=== PATIENT | female | born 1950 | race Caucasian/White ===

== ENCOUNTER → 2018-07-26 09:58 | Outpatient (CLI) | payer MEDICARE, SELFPAY ==
--- NOTE | 2018-07-26 10:03 | MM_ITS ---
MM Dig screening mamm BI w/CAD CAD Screening COMPARISON: Digital mammograms with CAD 08/02/2015 and 05/11/2017 INDICATION: There is a history of breast cancer in patient's mother diagnosed after menopause TECHNIQUE: Standard CC and MLO images were obtained. R2 CAD reviewed. FINDINGS: Scattered fibroglandular densities are seen in both breast primarily upper outer quadrants. There is a small asymmetric density upper outer quadrant left breast which was noted on the prior study 05/11/2017 and has shown slight interval increase in size and is highlighted by CAD. Recommend the patient return for spot compression views and ultrasound for better evaluation. There is a mole marker right breast. A couple of benign-appearing calcifications in each breast. There are no suspicious microcalcifications. IMPRESSION: Fibrofatty parenchyma with interval change in asymmetric density left breast BI-RADS Category: 0 Need Additional Imaging Evaluation RECOMMENDED FOLLOW-UP: IMM - IMMEDIATE FOLLOW-UP RECOMMENDED (A letter has been sent to the patient regarding results of the study.)
== END ==
PROVIDERS: PCP Nurse Practitioner Family; Visit Provider Nurse Practitioner Family
DX: Z12.31 Encounter for screening mammogram for malignant neoplasm of breast (principal)
CPT/HCPCS: 77067

== ENCOUNTER → 2018-08-19 13:01 | Outpatient (CLI) | payer MEDICARE, SELFPAY ==
--- NOTE | 2018-08-19 | US_ITS ---
US breast LT complete INDICATION: Follow-up abnormal mammogram, left breast nodule ORDERING PHYSICIAN: Pamela Soares PATIENT AGE: 68 years COMPARISON: 07/26/2018, 08/02/2015 TECHNIQUE: Problem-solving views of the left breast along left breast ultrasound FINDINGS: Left mammogram: There is a persistent 10 mm nodule noted in the lateral aspect of left breast at the 3:00 region. The margins are somewhat ill-defined. Left breast ultrasound: There is a 12 x 8 mm hypoechoic nodule at 3:00 region of the left breast. This appears solid and is located to the chest wall and is fairly well circumscribed with some enhanced through transmission of sound. This may represent a fibroadenoma however, biopsy is recommended. This does fall in the suspicious category IMPRESSION: Solid suspicious left breast nodule at 3:00 corresponding to the mammographic abnormality. Recommend mammotome biopsy with ultrasound guidance BI-RADS Category: 4 Suspicious Abnormality-Biopsy Considered RECOMMENDED FOLLOW-UP: BIO - BIOPSY RECOMMENDED (A letter has been sent to the patient regarding results of the study.)
--- NOTE | 2018-08-19 13:04 | MM_ITS ---
MM Dig mamm DX unilat LT CAD Left breast ultrasound complete with axilla INDICATION: Follow-up abnormal mammogram, left breast nodule ORDERING PHYSICIAN: Pamela Soares PATIENT AGE: 68 years COMPARISON: 07/26/2018, 08/02/2015 TECHNIQUE: Problem-solving views of the left breast along left breast ultrasound FINDINGS: Left mammogram: There is a persistent 10 mm nodule noted in the lateral aspect of left breast at the 3:00 region. The margins are somewhat ill-defined. Left breast ultrasound: There is a 12 x 8 mm hypoechoic nodule at 3:00 region of the left breast. This appears solid and is located to the chest wall and is fairly well circumscribed with some enhanced through transmission of sound. This may represent a fibroadenoma however, biopsy is recommended. This does fall in the suspicious category IMPRESSION: Solid suspicious left breast nodule at 3:00 corresponding to the mammographic abnormality. Recommend mammotome biopsy with ultrasound guidance BI-RADS Category: 4 Suspicious Abnormality-Biopsy Considered RECOMMENDED FOLLOW-UP: BIO - BIOPSY RECOMMENDED (A letter has been sent to the patient regarding results of the study.)
== END ==
PROVIDERS: PCP Nurse Practitioner Family; Visit Provider Nurse Practitioner Family
DX: R92.8 Other abnormal and inconclusive findings on diagnostic imaging of breast (principal)
CPT/HCPCS: 76641; 77065

== ENCOUNTER → 2018-09-07 09:45 | Outpatient (CLI) | payer MEDICARE, SELFPAY ==
--- NOTE | 2018-09-07 | MM_ITS ---
US mammotome bx LT, US breast LT complete, MM clip placement LT INDICATION: Suspicious left breast nodule noted mammogram and ultrasound ORDERING PHYSICIAN: Miguel Schultz MD PATIENT AGE: 68 years COMPARISON: 08/19/2018 Prebiopsy ultrasound: Ultrasound performed of left breast once again demonstrates the solid appearing at the 3:00 region. Biopsy planning performed and appropriate site marked on the patient's breast. TECHNIQUE: Following obtaining informed consent and following timeout, using aseptic conditions and local anesthesia with 1% buffered lidocaine in the breast lesion with lidocaine mixed with epinephrine anesthesia was obtained and skin neck performed. A gauge mammotome needle was then inserted and multiple mammotomy cores biopsies are obtained. Following this, a nonferrous MicroMark clip was placed. The patient tolerated the procedure well without evidence of immediate complication. Pathology: Papilloma with adenosis and sclerosis. Microcalcifications are present. Postbiopsy mammogram: Postbiopsy changes in the clip is noted in the outer aspect of the left breast at the 3:00 region. Previously noted nodule is not readily apparent or much smaller . IMPRESSION: Successful ultrasound guided mammotome biopsy of the left breast showing a papilloma. Excisional biopsy is recommended.
== END ==
PROVIDERS: PCP Nurse Practitioner Family; Visit Provider Internal Medicine Adolescent Medicine
DX: R92.8 Other abnormal and inconclusive findings on diagnostic imaging of breast (principal)
CPT/HCPCS: 19083; 76641; 76942; 77065; 88305; C2618

== ENCOUNTER → 2018-09-24 11:52 | Outpatient (CLI) | payer MEDICARE, SELFPAY ==
[2018-09-24 12:23] LABS: Basophils % 0.7 % (0.1-2.0); Eosinophils # 0.3 K/mm3 (0.0-0.4); Hematocrit 37.6 % (37.0-47.0); Hemoglobin 12.3 g/dL (12.2-16.2); Lymphocytes # 1.8 K/mm3 (0.7-4.5); Lymphocytes % 35.5 % (10-50); Mean Corpuscular HGB Conc 32.8 g/dL (31.8-35.4); Mean Corpuscular Hemoglobin 30.8 pg (27.0-31.2); Mean Platelet Volume 7.2 fl (7.4-10.4); Monocytes # 0.3 K/mm3 (0.1-1.0); Monocytes % 6.5 % (1.7-9.3); Neutrophils # 2.6 K/mm3 (1.8-7.8); Neutrophils % 52.4 % (37.0-80.0); Platelet Count 321 K/mm3 (142-424); Red Cell Distribution Width 13.4 % (11.5-17.5)
[2018-09-24 13:30] LABS: Anion Gap 8.5 mEq/L (5-15); Blood Urea Nitrogen 12 mg/dL (7-18); Calcium 9.6 mg/dL (8.5-10.1); Carbon Dioxide 36 mmol/L (21.0-32.0); Chloride 101 mmol/L (98-107); Creatinine,Serum 0.91 mg/dL (0.55-1.02); Estimated Glomerular Filt Rate 61 ml/min (>60); GFR (African American) 74 ML/MIN (>60); Potassium 4.5 mmoL/L (3.5-5.1); Sodium 141 mmol/L (136-145)
[2018-09-24 13:44] LABS: Glucose 48 mg/dL (74-106)
== END ==
PROVIDERS: Visit Provider Surgery
DX: N63.20 Unspecified lump in the left breast, unspecified quadrant; C50.912 Malignant neoplasm of unspecified site of left female breast
CPT/HCPCS: 36415; 80048; 85025

== ENCOUNTER → 2018-12-20 09:20 | Outpatient (CLI) | payer MEDICARE, SELFPAY ==
--- NOTE | 2018-12-20 09:22 | US_ITS ---
US breast LT complete INDICATION: Pain and swelling left breast following surgery ORDERING PHYSICIAN: Tommy Ayers MD PATIENT AGE: 68 years COMPARISON: None TECHNIQUE: Left breast ultrasound with axilla FINDINGS: There is a complex fluid collection in the 2:00 region of the left breast measuring 4 x 1.2 x 1.6 cm with a tail extending toward the axilla consistent with postoperative seroma. No other significant anomalies are evident. IMPRESSION: The findings are consistent with a postoperative seroma in the left breast at 2:00. Ultrasound-guided aspiration suggested BI-RADS Category: 2 Benign Finding(s) RECOMMENDED FOLLOW-UP: IMM - IMMEDIATE FOLLOW-UP RECOMMENDED (A letter has been sent to the patient regarding results of the study.)
--- NOTE | 2018-12-20 10:20 | US_ITS ---
US FNA Breast HISTORY: Postoperative seroma left breast ORDERING PHYSICIAN: Tommy Ayers MD PATIENT AGE: 68 years COMPARISON: 12/20/2018 TECHNIQUE: Patient has a postoperative fluid collection in the upper outer aspect of the left breast desiring drainage. Following obtaining informed consent and timeout, under aseptic conditions and local anesthesia with 1% buffered lidocaine, an 18-gauge needle was inserted into the collection and approximately 20 mL's of bloody fluid was aspirated. This was sent to the lab for analysis for culture and sensitivity. The patient tolerated the procedure well without evidence of immediate complication. The collection was no longer visible at the end of the procedure. IMPRESSION: Successful sonographic guided aspiration of the left breast without complications
== END ==
PROVIDERS: PCP Nurse Practitioner Family; Visit Provider Surgery
DX: N64.4 Mastodynia; N64.89 Other specified disorders of breast; N63.20 Unspecified lump in the left breast, unspecified quadrant
CPT/HCPCS: 10005; 76641; 76942; 87070; 87205

== ENCOUNTER → 2019-04-21 13:09 | Outpatient (CLI) | payer MEDICARE, SELFPAY | PROVIDERS: PCP Internal Medicine Adolescent Medicine; Visit Provider Nurse Practitioner Family | DX: R42 Dizziness and giddiness (principal); R55 Syncope and collapse | CPT/HCPCS: 93270 ==

== ENCOUNTER → 2019-07-28 10:57 | Outpatient (CLI) | payer MEDICARE, SELFPAY ==
--- NOTE | 2019-07-28 11:10 | MM_ITS ---
PROCEDURE: MM DIG MAMM BI DX W/CAD CLINICAL INDICATION: RT BREAST NODULE Follow-up breast biopsy COMPARISON: 07/26/2018, 05/11/2017, 08/02/2015 TECHNIQUE: Standard images performed FINDINGS: Average fibroglandular tissue. Right breast: There is an asymmetric area of increased density in the inferior aspect of the right breast slightly more prominent compared to the previous study. There is some asymmetric density in the lateral aspect of the right breast near the areolar region. Spot compression views and ultrasound suggested as well as a straight mL view. Left breast: Postsurgical changes with a clip now present in the upper aspect of the left breast. Previously noted nodular opacity in the superior left breast is no longer apparent. There is a faint nodular density in the superior left breast which could represent some postsurgical changes. Calcifications are present in the central aspect of the left breast which are not significantly changed. Increased density is present in the lateral aspect of the left breast probably due to some scarring/postsurgical change. There is an asymmetric density in the medial aspect of the left breast. Spot views suggested. If this persists then ultrasound will be needed. IMPRESSION: Asymmetric densities in the inferior right breast and inferior left breast for which spot compression views and ultrasound is suggested.. Postsurgical changes of the left breast with some nodularity in the upper outer aspect. BI-RAD Category: 0 Need Additional Imaging Evaluation FOLLOW-UP: IMM Immediate Follow-up Recommended (A letter has been sent to the patient regarding results of the study.) Dictated by: Eliezer Tamayo MD 08/06/2019 09:16 Electronically signed by Eliezer Tamayo MD in [place] 08/06/2019 09:16
== END ==
PROVIDERS: PCP Internal Medicine Adolescent Medicine; Visit Provider Nurse Practitioner Family
DX: R92.8 Other abnormal and inconclusive findings on diagnostic imaging of breast (principal)
CPT/HCPCS: 77066

== ENCOUNTER 2019-09-16 10:42 | Inpatient (IN) ==
--- NOTE | 2019-09-16 10:57 | Emergency Department Note ---
ED Disposition Clinical Impression: Severe sepsis Community acquired pneumonia Qualifiers: Laterality: right Lung location: unspecified part of lung Qualified Code(s): J18.9 - Pneumonia, unspecified organism Respiratory failure Qualifiers: Chronicity: acute on chronic Respiratory failure complication: hypoxia and hypercapnia Qualified Code(s): J96.21 - Acute and chronic respiratory failure with hypoxia Disposition: Admitted As Inpatient Condition on Discharge: Serious Referrals: Pamela Soares APRN [Primary Care Provider] - - Critical Care Critical Care Time: Yes Attestation: On 09/16/19, the high probability of a clinically significant, sudden or life threatening deterioration of the following system(s) required my full and direct attention, intervention and personal management. The time I documented below is in addition to time spent performing reported procedures but includes the following listed in this critical care notation. Vital system(s) involved:: Respiratory Failure My critical care processes included: Assessment & monitoring of V/S, Initial and Re-exams, Data Review/Interpretation, Coordinating Care, Medication Orders and management, Documentation Medical Decision Making - Andrei Inquiry Pt receiving controlled substance: No Vital Signs: 09/16/19 10:43 09/16/19 11:25 09/16/19 11:30 Temperature 101.5 F H Temperature Source Rectal Pulse Rate [Left Radial] 112 H 109 H Respiratory Rate 42 H 42 H Blood Pressure [Right Arm] 137/88 123/58 L Blood Pressure Mean [Right Arm] 104 79 Blood Pressure Position [Right Arm] Sitting 02 Sat by Pulse Oximetry 85 L 92 L 92 L Oxygen Delivery Method Nasal Cannula Nasal Cannula Oxygen Flow Rate (LPM) 2 4 - Lab Data Lab Results 09/16/19 10:48: Specimen Source R radial, O2 % 4lpm, ABG pH 7.34 L, ABG pCO2 60.9 H, ABG pO2 63.6 L, ABG HCO3 31.8 H, ABG Total CO2 33.7 H, ABG O2 Saturation 91, ABG Base Excess 6.0 H, Eliezer Test Acceptable 09/16/19 10:50: Total Creatine Kinase 183, CK-MB (CK-2) 0.9, CK-MB (CK-2) Rel Index 0.5, Troponin I 0.08 H 09/16/19 10:50: WBC 18.0 H, RBC 3.34 L, Hgb 10.1 L, Hct 31.7 L, MCV 95.1, MCH 30.4, MCHC 32.0, RDW 13.2, Plt Count 309, MPV 8.4, Neut % (Auto) 93.6 H, Lymph % (Auto) 3.3 L, [place] % (Auto) 2.7, Eos % (Auto) 0.1, Baso % (Auto) 0.2, Neut # (Auto) 16.8 H, Lymph # (Auto) 0.6 L, [place] # (Auto) 0.5, Eos # (Auto) 0.0, Baso # (Auto) 0.0, Total Counted 100, Neutrophils % (Manual) 85 H, Band Neutrophils % 4.0, Lymphocytes % (Manual) 8 L, Monocytes % (Manual) 1 L, Metamyelocytes % 1.0, Myelocytes % 1, Platelet Estimate Normal, RBC Morphology Normal 09/16/19 10:50: Sodium 135 L, Potassium 4.3, Chloride 95 L, Carbon Dioxide 33 H, Anion Gap 11.3, BUN 27 H, Creatinine 2.02 H, Estimated Creat Clear 37, Estimated GFR 24 L, Est GFR ( Amer) 29 L, Glucose 179 H, Calcium 9.1, Total Bilirubin 0.4, AST 26, ALT 29, Alkaline Phosphatase 119 H, Total Protein 7.3, Albumin 2.3 L, Globulin 5.0 H, Albumin/Globulin Ratio 0.5 L, TSH 1.63, Free T4 1.21 09/16/19 10:50: Lactate 1.8 09/16/19 10:50: B-Natriuretic Peptide 934 H 09/16/19 10:55: Urine Color Dk yellow, Urine Appearance Clear, Urine pH 5.5, Ur Specific Dairy >= 1.030, Urine Protein 1+, Urine Glucose (UA) Negative, Urine Ketones Trace, Urine Blood Negative, Urine Nitrate Negative, Urine Bilirubin Negative, Urine Urobilinogen 0.2, Ur Leukocyte Esterase Negative, Urine RBC None, Urine WBC None, Ur Squamous Epith Cells 10-20, Amorphous Sediment 2+, Urine Bacteria None, Coarse Granular Casts Occasional 09/16/19 10:55: Influenza Type A Ag Negative, Influenza Type B Ag Negative Result diagrams: 09/16/19 10:50 09/16/19 10:50 Orders (Tests/Meds): ED MEDICATIONS Generic Name Dose Route Start Last Admin Trade Name Freq PRN Reason Stop Dose Admin Aspirin 650 mg 09/16/19 11:29 09/16/19 11:29 Aspirin 325mg Tablet PO 10/16/19 11:19 650 mg Q4HP PRN Administration Fever > 100.4 Levofloxacin/Dextrose 750 mg in 150 mls @ 100 mls/hr 09/16/19 11:45 09/16/19 11:52 Levofloxacin 750mg/150ml Premix IV 09/30/19 11:44 100 mls/hr Q24H WINNIE Administration Protocol Sodium Chloride 1,000 mls @ 150 mls/hr 09/16/19 11:45 09/16/19 11:52 Sod Chlor 0.9% 1000ml Bag IV 10/16/19 11:44 150 mls/hr .[id number] WINNIE Administration Discontinued Medications Generic Name Dose Route Start Last Admin Trade Name Freq PRN Reason Stop Dose Admin Aspirin 325 mg 09/16/19 11:20 Aspirin 325mg Tablet PO 10/16/19 11:19 Q4HP PRN Fever > 100.4 Methylprednisolone Sodium Succinate 125 mg 09/16/19 11:21 09/16/19 11:27 Solu-Medrol 125mg/2ml Vial IV 09/16/19 11:22 125 mg ONCE ONE Administration ORDERS Category Date Time Status Blood Culture Stat Micro 09/16/19 10:48 Received - Radiology Data #1 Image(s): Chest Image Reviewed: Yes I have reviewed radiologist's interpretation PROCEDURE: XR CHEST AP CLINICAL HISTORY: soa Shortness of air, fall with injury and pain, trauma protocol COMPARISON: CXR CHEST(2 VIEWS-NOT PORTABLE) from 01/30/2016 CXR1 CHEST-PORTABLE from 02/15/2016 CTAC CTA-CHEST from 02/15/2016 CXR2V XR chest 2V from 10/13/2018 FINDINGS: The cardiomediastinal silhouette and pulmonary vascularity are within normal limits. Consolidation is present in the right upper and right lower lobe consistent with right-sided pneumonia. Underlying pulmonary nodule could easily be obscured. Small right effusion also suspected. No acute bony abnormalities. IMPRESSION: Right upper and right lower lobe pneumonia. Recommend following till clear Dictated by: Eliezer Tamayo MD 09/16/2019 11:31 Electronically signed by Eliezer Tamayo MD in [place] 09/16/2019 11:31 PROCEDURE: XR PELVIS 1-2V CLINICAL INDICATION: fall Posttraumatic pain trauma protocol COMPARISON: No exams were available for comparison TECHNIQUE: XR Pelvis AP View FINDINGS: No fracture or dislocation is evident. Minimal osteoarthritic changes of the hips No lytic or blastic change. IMPRESSION: No acute findings. Dictated by: Eliezer Tamayo MD 09/16/2019 11:30 Electronically signed by Eliezer Tamayo MD in [place] 09/16/2019 11:30 - ECG Data Tracing #1 EKG interpreted by Parker Cortes MD: Rhythm: sinus tachycardia Rate: Center: normal Ectopy: none Conduction: normal ST Segment Changes: none T Wave Changes: none Q Waves: none No evidence of acute ischemia or injury Low voltage QRS - Physician Consults Physician Consulted: Dr. Schultz Time: 12:03 Reason -: Admission Comment/Response: Agrees to admit the patient to the hospital. We discussed the patient's clinical information, including history, exam, laboratory and radiology results and ED course. Per hospital procedure, I will write temporary bridge inpatient orders on the patient. Specific orders requested by the admitting physician: Continue current treatment General Adult HPI - General Chief complaint: Weakness Stated complaint: weakness Time Seen by Provider: 09/16/19 10:45 - History of Present Illness HPI narrative: Brought in by ambulance from home. Patient says that she was up last night at 3 AM straightening out the bed when she collapsed and fell on the floor. Denies injury or pain. Apparently could not get up and laid in the floor all night. Says that she has been under a lot of stress recently. Says that she is felt weak for a couple of months. She also says that she is short of breath, but states this is also chronic. She she also says she has chronic abdominal pain and UTIs. She denies any recent acute illness. Denies recent cough or fever, vomiting, or diarrhea. He says that she is diagnosed with COPD, on oxygen at home. Former smoker. States she has been compliant with her medications. She lists allergies to albuterol, ipratropium, leave albuterol, but received a DuoNeb treatment during transport without incident. - Related Data Home Medications Medication Instructions Recorded Confirmed alprazolam 1 mg tablet 1 mg PO TID PRN 12/24/17 06/20/19 amitriptyline 100 mg tablet 100 mg PO QHS 12/24/17 06/20/19 ammonium lactate 12 % lotion 1 applic TOPICAL BID PRN 12/24/17 06/20/19 ascorbic acid (vitamin C) 500 mg 100 mg PO DAILY 12/24/17 06/20/19 capsule bisoprolol 10 1 tab PO ONCE 12/24/17 06/20/19 mg-hydrochlorothiazide 6.25 mg tablet cyclobenzaprine 10 mg tablet 10 mg PO TID PRN 12/24/17 06/20/19 doxazosin 4 mg tablet 4 mg PO ONCE 12/24/17 06/20/19 furosemide 20 mg tablet 20 mg PO ONCE 12/24/17 06/20/19 ibuprofen 600 mg tablet 600 mg PO TID PRN 12/24/17 06/20/19 insulin glargine U-300 conc 300 66 unit SUB-Q QHS 12/24/17 06/20/19 unit/mL (3 mL) subcutaneous pen levothyroxine 88 mcg tablet 88 mcg PO ONCE 12/24/17 06/20/19 losartan 100 mg tablet 100 mg PO ONCE 12/24/17 06/20/19 metformin 1,000 mg tablet 1,000 mg PO BID 12/24/17 06/20/19 nystatin 500,000 unit tablet 500,000 unit PO DAILY PRN 12/24/17 06/20/19 simvastatin 40 mg tablet 40 mg PO QPM 12/24/17 06/20/19 triamcinolone acetonide 0.1 % 1 applic DENTAL QHS PRN 12/24/17 06/20/19 dental paste umeclidinium 62.5 mcg/actuation 1 inh INHALATION Q24H 12/24/17 06/20/19 blister powder for inhalation Venlafaxine HCl [Effexor 37.5mg 37.5 mg PO DAILY 10/12/18 06/20/19 tablet] Previous Rx's Medication Instructions Recorded fluconazole 100 mg tablet 100 mg PO DAILY #14 tab 03/07/19 Allergies Allergy/AdvReac Type Severity Reaction Status Date / Time cephalexin [CEPHALEXIN] Allergy Severe S-DIFF. Verified 06/20/19 10:45 BREATHING, SWELLING Sulfa (Sulfonamide Allergy Severe S-DIFF. Verified 06/20/19 10:45 Antibiotics) BREATHING, [SULFA (SULFONAMIDE SWELLING ANTIBIOTICS)] acetaminophen [From PERCOCET] Allergy Intermediate I-RASH, Verified 06/20/19 10:45 HEADACHE albuterol [ALBUTEROL] Allergy Intermediate I-RASH; Verified 06/20/19 10:45 HEADACHE amoxicillin [From AUGMENTIN] Allergy Intermediate I-RASH, Verified 06/20/19 10:45 HEADACHE atorvastatin [From LIPITOR] Allergy Intermediate I-ITCHING; Verified 06/20/19 10:45 HAIR FALLS OUT clavulanic acid Allergy Intermediate I-RASH, Verified 06/20/19 10:45 [From AUGMENTIN] HEADACHE codeine Allergy Intermediate I-RASH, Verified 06/20/19 10:45 [From TYLENOL-CODEINE] HEADACHE hydrocodone [From LORTAB] Allergy Intermediate I-ITCHING Verified 06/20/19 10:45 (IN LARGE DOSES PER PT.) morphine [MORPHINE] Allergy Intermediate I-RASH, Verified 06/20/19 10:45 HEADACHE, ASTHMA ATTACKS oxycodone [From PERCOCET] Allergy Intermediate I-RASH, Verified 06/20/19 10:45 HEADACHE tramadol [TRAMADOL] Allergy Intermediate I-RASH, Verified 06/20/19 10:45 HEADACHE ipratropium [IPRATROPIUM] Allergy Mild Verified 06/20/19 10:45 levalbuterol [LEVALBUTEROL] Allergy Mild Verified 06/20/19 10:45 [facility] History - Hepatitis A Screen Attestation statement:: This patient has been screened for Hepatitis A risk factors. I have reviewed the patient's past medical history: Yes Medical History: Reports:: Anxiety, Asthma, Chronic Obstructive Pulmonary Disease (COPD), Diabetes Mellitus Type 2, Hyperlipidemia, Hypertension, MRSA Denies:: Cancer, Diabetes Mellitus Type 1, Internal Pacemaker, Seizures Other Medical History: Reports: Hypothyroidism, Sinus Problems, Thyroid Disease. Denies: Blood Transfusion Reaction Laterality Cases: Bilateral: Tonsillectomy, Other Other Surgeries: Yes: Cholecystectomy, Colonoscopy, Hernia Repair (x3), Hysterectomy-Total, Tubal Ligation, Other. No: Pacemaker Amputation: No Fractures: No Comment: excision of lt breast - Social History Smoking Status: Never smoker Alcohol Intake: never Substance Use Type: denies use Occupational Status: unemployed Housing: house Household Members: spouse - Psychiatric History Pschychiatric History:: Reports:: Anxiety Family Hx:: No significant family history ROS Obtained: Yes All systems reviewed & no additional complaints - Constitutional Constitutional: Denies fever(s), Reports weakness - ENT Ears, Nose, Mouth, and Throat: Denies nasal discharge, Denies sore throat - Cardiovascular Cardiovascular: Denies chest pain - Respiratory Respiratory: No cough, Yes dyspnea, Yes wheezing - Gastrointestinal Gastrointestingal: Reports: abdominal pain (Chronic). Denies: diarrhea, vomiting - Genitourinary Female Genitourinary: Reports other (Chronic UTIs) - Musculoskeletal Musculoskeletal: Denies back pain, Denies neck pain - Neurologic Neurologic: Denies headache(s), Denies numbness Physical Exam - General General appearance: alert Comment: Mildly drowsy Audible wheezing, dyspneic Pulse ox on nasal cannula oxygen 88% on my arrival. Patient was put in a more upright sitting position and pulse ox went up to 90%. - Head Head exam: atraumatic, normocephalic - Eye Eye exam: Present: normal appearance, EOMI - ENT ENT exam: Present: mucous membranes dry - Neck Neck exam: Present: normal inspection, full ROM, trachea midline. Absent: tenderness - Chest Chest inspection: Present: normal inspection, symmetric chest wall rise - Respiratory Respiratory exam: Present: wheezes - Cardiovascular Cardiovascular exam: Present: normal rhythm, tachycardia - Abdominal Exam Abdominal exam: Present: soft, normal bowel sounds. Absent: distention, tenderness - Extremities Exam Extremities exam: Present: normal capillary refill - Neurological Exam Neurological exam: Present: alert, oriented X3, CN II-XII intact. Absent: motor sensory deficit - Psychiatric Psychiatric exam: Present: normal affect - Skin Skin exam: Present: warm, dry, pallor
[2019-09-16 11:03] LABS: Microscopic, Urine URINE MICROSCOPIC (MICROSCOPIC)
[2019-09-16 11:04] LABS: Basophils % 0.2 % (0.1-2.0); Eosinophils % 0.1 % (0.1-12.0); Hematocrit 31.7 % (37.0-47.0); Hemoglobin 10.1 g/dL (12.2-16.2); Lymphocytes # 0.6 K/mm3 (0.7-4.5); Lymphocytes % 3.3 % (10-50); Mean Corpuscular Volume 95.1 fl (81-99); Mean Platelet Volume 8.4 fl (7.4-10.4); Monocytes # 0.5 K/mm3 (0.1-1.0); Monocytes % 2.7 % (1.7-9.3); Neutrophils # 16.8 K/mm3 (1.8-7.8); Neutrophils % 93.6 % (37.0-80.0); Platelet Count 309 K/mm3 (142-424); Red Blood Count 3.34 M/mm3 (4.20-5.40); Red Cell Distribution Width 13.2 % (11.5-17.5)
[2019-09-16 11:07] LABS: Appearance,Urine CLEAR (Clear); Blood, Urine Negative (Negative); Color,Urine DK YELLOW (Yellow); Glucose,Urine (UA) Negative (Negative); Ketones,Urine TRACE (Negative); Leukocyte Esterase,Urine Negative (Negative); PH,Urine 5.5 (5.0-8.5); Protein,Urine 1+ (Negative); Specific Gravity, Urine >= 1.030 (1.005-1.030); Urobilinogen,Urine 0.2 EU/dl (0.2)
[2019-09-16 11:15] LABS: ABG HCO3 31.8 mmhg (22.0-26.0); ABG Oxygen Saturation 91 % (90-100); ABG PH 7.34 mmol/L (7.35-7.45); ABG PO2 63.6 mmhg (80-100); ABG TCO2 33.7 mmhg (23-27)
[2019-09-16 11:15] LABS: Bilirubin,Urine Negative (Negative)
[2019-09-16 11:16] LABS: Allen's Test ACCEPTABLE; Oxygen 4LPM %
[2019-09-16 11:18] LABS: Amorphous Sediment,Urine 2+ /lpf; Coarse Granular Casts,Urine Occasional #/lpf (0)
[2019-09-16 11:19] LABS: ABG PCO2 60.9 mmhg (35.0-45.0)
[2019-09-16 11:21] LABS: Lymphocytes % 8 % (10-50); Monocytes % 1 % (2-9); Myelocytes % 1 (0-1); Neutrophils % 85 % (42-76); RBC Morphology Normal; Total Cells Counted 100
[2019-09-16 11:32] LABS: Albumin Level 2.3 g/dL (3.4-5.0); Albumin/Globulin Ratio 0.5 (1.1-1.8); Anion Gap 11.3 mEq/L (5-15); Bilirubin,Total 0.4 mg/dL (0.2-1.0); Calcium 9.1 mg/dL (8.5-10.1); Free T4 (Free Thyroxine) 1.21 ng/dl (0.76-1.46); Thyroid Stimulating Hormone 1.63 uIU/ml (0.358-3.740); Total Protein,Serum 7.3 g/dL (6.4-8.2)
--- NOTE | 2019-09-16 13:42 | History & Physical Report ---
*Admission Date: 09/16/19 *Chief complaint: Cough/congestion/syncopal episode *History of present illness: 69-year-old white female with multiple medical problems including chronic emphysema, chronic anxiety and multiple medication intolerances with progressive debility over the past several years, who has been sick over the past 7 to 10 days with a cough, congestion and very minimal p.o. intake according to her and daughter. She was up doing housework at 3 AM this morning when she collapsed, when her daughter found her this morning she had been immobile supposedly over the past 5 to 6 hours. Brought to the emergency department. Work-up interestingly revealed no evidence of CPK elevation but she had acute on chronic respiratory failure and required BiPAP in the emergency department for a couple of hours. She was found to have evidence of sepsis, evidence of infection with 2 different lobes of the right lung involved with pneumonia on chest x-ray, and admitted to hospital for IV fluids, IV antibiotics, enhanced pulmonary toilet and further observation. [facility] History I have reviewed the patient's past medical history: Yes Medical History: Reports:: Anxiety, Asthma, Chronic Obstructive Pulmonary Disease (COPD), Diabetes Mellitus Type 2, Hyperlipidemia, Hypertension, MRSA Denies:: Cancer, Diabetes Mellitus Type 1, Internal Pacemaker, Seizures *Have you ever received a pneumonia vaccine?: Yes *Have you received a flu vaccine this season?: Yes Other Medical History: Reports: Hypothyroidism, Sinus Problems, Thyroid Disease. Denies: Blood Transfusion Reaction Laterality Cases: Bilateral: Tonsillectomy, Other Other Surgeries: Yes: Cholecystectomy, Colonoscopy, Hernia Repair (x3), Hysterec lina-Total, Tubal Ligation, Other. No: Pacemaker Amputation: No Fractures: No - *Social History Smoking Status: Never smoker Alcohol Intake: never Substance Use Type: denies use *Occupational Status:: other Housing: house Household Members: spouse *Travel in the last 8 weeks: None - Psychiatric History Pschychiatric History:: Reports:: Anxiety Family Hx:: No significant family history Review of Systems - Review of Systems Review of systems:: pertinent systems reviewed and negative unless documented below Reports increasing problems with functional issues, over the past 7 to 10 days, respiratory symptoms as above. Denies cardiac symptoms, denies GI symptoms. Ongoing anxiety noted. - *Neurologic Reports weakness, Denies headache(s), Denies numbness Meds Home Medications Medication Instructions Recorded Confirmed Type alprazolam 1 mg tablet 1 mg PO TID PRN 12/24/17 09/16/19 History amitriptyline 100 mg tablet 100 mg PO HS 12/24/17 09/16/19 History ammonium lactate 12 % lotion 1 applic TOPICAL BID PRN 12/24/17 09/16/19 History ascorbic acid (vitamin C) 500 mg 100 mg PO DAILY 12/24/17 09/16/19 History capsule bisoprolol 10 1 tab PO DAILY 12/24/17 09/16/19 History mg-hydrochlorothiazide 6.25 mg tablet doxazosin 4 mg tablet 4 mg PO DAILY 12/24/17 09/16/19 History furosemide 20 mg tablet 20 mg PO DAILY 12/24/17 09/16/19 History insulin glargine U-300 conc 300 66 unit SUB-Q QHS 12/24/17 09/16/19 History unit/mL (3 mL) subcutaneous pen levothyroxine 88 mcg tablet 88 mcg PO DAILY 12/24/17 09/16/19 History losartan 100 mg tablet 100 mg PO DAILY 12/24/17 09/16/19 History metformin 1,000 mg tablet 1,000 mg PO BID 12/24/17 09/16/19 History simvastatin 40 mg tablet 40 mg PO HS 12/24/17 09/16/19 History triamcinolone acetonide 0.1 % 1 applic DENTAL QHS PRN 12/24/17 09/16/19 History dental paste umeclidinium 62.5 mcg/actuation 1 inh INHALATION Q24H 12/24/17 09/16/19 History blister powder for inhalation Diclofenac Sodium [Diclofenac 75mg 75 mg PO BID 09/16/19 09/16/19 History Tab] Estradiol [Yuvafem] 10 mcg VG DIRECTED 09/16/19 09/16/19 History Venlafaxine HCl [Venlafaxine HCl 150 mg PO DAILY 09/16/19 09/16/19 History ER] Allergies Allergy/AdvReac Type Severity Reaction Status Date / Time cephalexin [CEPHALEXIN] Allergy Severe S-DIFF. Verified 06/20/19 10:45 BREATHING, SWELLING Sulfa (Sulfonamide Allergy Severe S-DIFF. Verified 06/20/19 10:45 Antibiotics) BREATHING, [SULFA (SULFONAMIDE SWELLING ANTIBIOTICS)] acetaminophen [From PERCOCET] Allergy Intermediate I-RASH, Verified 06/20/19 10:45 HEADACHE albuterol [ALBUTEROL] Allergy Intermediate I-RASH; Verified 06/20/19 10:45 HEADACHE amoxicillin [From AUGMENTIN] Allergy Intermediate I-RASH, Verified 06/20/19 10:45 HEADACHE atorvastatin [From LIPITOR] Allergy Intermediate I-ITCHING; Verified 06/20/19 10:45 HAIR FALLS OUT clavulanic acid Allergy Intermediate I-RASH, Verified 06/20/19 10:45 [From AUGMENTIN] HEADACHE codeine Allergy Intermediate I-RASH, Verified 06/20/19 10:45 [From TYLENOL-CODEINE] HEADACHE hydrocodone [From LORTAB] Allergy Intermediate I-ITCHING Verified 06/20/19 10:45 (IN LARGE DOSES PER PT.) morphine [MORPHINE] Allergy Intermediate I-RASH, Verified 06/20/19 10:45 HEADACHE, ASTHMA ATTACKS oxycodone [From PERCOCET] Allergy Intermediate I-RASH, Verified 06/20/19 10:45 HEADACHE tramadol [TRAMADOL] Allergy Intermediate I-RASH, Verified 06/20/19 10:45 HEADACHE ipratropium [IPRATROPIUM] Allergy Mild Verified 06/20/19 10:45 levalbuterol [LEVALBUTEROL] Allergy Mild Verified 06/20/19 10:45 Exam Vital signs and Labs for Last 24 Hours: Temp Pulse Resp BP Pulse Ox 99 F 105 H 36 H 110/62 90 L 09/16/19 13:33 09/16/19 13:33 09/16/19 13:33 09/16/19 13:33 09/16/19 13:30 Laboratory Results - last 24 hr 09/16/19 10:48: Specimen Source R radial, O2 % 4lpm, ABG pH 7.34 L, ABG pCO2 60.9 H, ABG pO2 63.6 L, ABG HCO3 31.8 H, ABG Total CO2 33.7 H, ABG O2 Saturation 91, ABG Base Excess 6.0 H, Eliezer Test Acceptable 09/16/19 10:50: Total Creatine Kinase 183, CK-MB (CK-2) 0.9, CK-MB (CK-2) Rel Index 0.5, Troponin I 0.08 H 09/16/19 10:50: WBC 18.0 H, RBC 3.34 L, Hgb 10.1 L, Hct 31.7 L, MCV 95.1, MCH 30.4, MCHC 32.0, RDW 13.2, Plt Count 309, MPV 8.4, Neut % (Auto) 93.6 H, Lymph % (Auto) 3.3 L, Coleman % (Auto) 2.7, Eos % (Auto) 0.1, Baso % (Auto) 0.2, Neut # (Auto) 16.8 H, Lymph # (Auto) 0.6 L, Coleman # (Auto) 0.5, Eos # (Auto) 0.0, Baso # (Auto) 0.0, Total Counted 100, Neutrophils % (Manual) 85 H, Band Neutrophils % 4.0, Lymphocytes % (Manual) 8 L, Monocytes % (Manual) 1 L, Metamyelocytes % 1.0, Myelocytes % 1, Platelet Estimate Normal, RBC Morphology Normal 09/16/19 10:50: Sodium 135 L, Potassium 4.3, Chloride 95 L, Carbon Dioxide 33 H, Anion Gap 11.3, BUN 27 H, Creatinine 2.02 H, Estimated Creat Clear 37, Estimated GFR 24 L, Est GFR ( Amer) 29 L, Glucose 179 H, Calcium 9.1, Total Bilirubin 0.4, AST 26, ALT 29, Alkaline Phosphatase 119 H, Total Protein 7.3, Albumin 2.3 L, Globulin 5.0 H, Albumin/Globulin Ratio 0.5 L, TSH 1.63, Free T4 1.21 09/16/19 10:50: Lactate 1.8 09/16/19 10:50: B-Natriuretic Peptide 934 H 09/16/19 10:55: Urine Color Dk yellow, Urine Appearance Clear, Urine pH 5.5, Ur Specific [place] >= 1.030, Urine Protein 1+, Urine Glucose (UA) Negative, Urine Ketones Trace, Urine Blood Negative, Urine Nitrate Negative, Urine Bilirubin Negative, Urine Urobilinogen 0.2, Ur Leukocyte Esterase Negative, Urine RBC None, Urine WBC None, Ur Squamous Epith Cells 10-20, Amorphous Sediment 2+, Urine Bacteria None, Coarse Granular Casts Occasional 09/16/19 10:55: Influenza Type A Ag Negative, Influenza Type B Ag Negative I & O for Last 24 hours: Intake & Output 09/14/19 09/15/19 09/16/19 09/17/19 11:59 11:59 11:59 11:59 Weight 200 lb 193 lb 3 oz Narrative: On the floor patient is on 4 L nasal cannula with acceptable oxygen saturations and minimal increased work of breathing. Crackles and rhonchi in right and left lower lung field and right middle lung field. No wheezing. Abdomen soft, no edema or clubbing. No skin rash. She is neurologically intact. Oropharynx dry but clear, no JVD. Assessment and Plan (1) Generalized anxiety disorder Current visit: Yes Status: Acute Category: Medical Code(s): F41.1 - Generalized anxiety disorder Complicates all aspects of her care (2) Diabetes mellitus type 2, noninsulin dependent Current visit: Yes Status: Acute Category: Medical Code(s): E11.9 - Type 2 diabetes mellitus without complications Sliding scale insulin, watch sugar closely (3) Obesity (BMI 30.0-34.9) Current visit: Yes Status: Acute Category: Medical Code(s): E66.9 - Obesity, unspecified Complicates all aspects of her care (4) Community acquired pneumonia Current visit: Yes Status: Acute Qualifiers: Laterality: right Lung location: unspecified part of lung Qualified Code(s): J18.9 - Pneumonia, unspecified organism Category: Medical Code(s): J18.9 - Pneumonia, unspecified organism Multilobar pneumonia. Continue current management. Await culture results (5) Respiratory failure Current visit: Yes Status: Acute Qualifiers: Chronicity: acute on chronic Respiratory failure complication: hypoxia and hypercapnia Qualified Code(s): J96.21 - Acute and chronic respiratory failure with hypoxia; J96.22 - Acute and chronic respiratory failure with hypercapnia Category: Medical Code(s): J96.90 - Respiratory failure, unspecified, unspecified whether with hypoxia or hypercapnia Improving after Xopenex therapy. No changes in plan at this point (6) Severe sepsis Current visit: Yes Status: Acute Category: Medical Code(s): A41.9 - Sepsis, unspecified organism; R65.20 - Severe sepsis without septic shock Continue current sepsis management
--- NOTE | 2019-09-16 13:52 | Pharmacy Consult Notes ---
[facility] Pharmacy VTE Monitoring - Patient Demographics Admission date: 09/16/19 Report Date: 09/16/19 Time: 13:52 Allergies/Adverse Reactions: Patient Allergies cephalexin [CEPHALEXIN] Allergy (Severe, Verified 06/20/19 10:45) S-DIFF. BREATHING, SWELLING Sulfa (Sulfonamide Antibiotics) [SULFA (SULFONAMIDE ANTIBIOTICS)] Allergy (Severe, Verified 06/20/19 10:45) S-DIFF. BREATHING, SWELLING acetaminophen [From PERCOCET] Allergy (Intermediate, Verified 06/20/19 10:45) I-RASH, HEADACHE albuterol [ALBUTEROL] Allergy (Intermediate, Verified 06/20/19 10:45) I-RASH; HEADACHE amoxicillin [From AUGMENTIN] Allergy (Intermediate, Verified 06/20/19 10:45) I-RASH, HEADACHE atorvastatin [From LIPITOR] Allergy (Intermediate, Verified 06/20/19 10:45) I-ITCHING; HAIR FALLS OUT clavulanic acid [From AUGMENTIN] Allergy (Intermediate, Verified 06/20/19 10:45) I-RASH, HEADACHE codeine [From TYLENOL-CODEINE] Allergy (Intermediate, Verified 06/20/19 10:45) I-RASH, HEADACHE hydrocodone [From LORTAB] Allergy (Intermediate, Verified 06/20/19 10:45) I-ITCHING (IN LARGE DOSES PER PT.) morphine [MORPHINE] Allergy (Intermediate, Verified 06/20/19 10:45) I-RASH, HEADACHE, ASTHMA ATTACKS oxycodone [From PERCOCET] Allergy (Intermediate, Verified 06/20/19 10:45) I-RASH, HEADACHE tramadol [TRAMADOL] Allergy (Intermediate, Verified 06/20/19 10:45) I-RASH, HEADACHE ipratropium [IPRATROPIUM] Allergy (Mild, Verified 06/20/19 10:45) levalbuterol [LEVALBUTEROL] Allergy (Mild, Verified 06/20/19 10:45) Height: 1.63 m Weight: 87.628 kg Patient Problems: Current Active Problems Community acquired pneumonia (Acute) Severe sepsis (Acute) Respiratory failure (Acute) Generalized anxiety disorder (Acute) Diabetes mellitus type 2, noninsulin dependent (Acute) Obesity (BMI 30.0-34.9) (Acute) - VTE Risk Labs: VTE Related Lab Results Hgb 10.1 g/dL (12.2-16.2) L 09/16/19 10:50 Hct 31.7 % (37.0-47.0) L 09/16/19 10:50 Plt Count 309 K/mm3 (142-424) 09/16/19 10:50 BUN 27 mg/dL (7-18) H 09/16/19 10:50 Creatinine 2.02 mg/dL (0.55-1.02) H 09/16/19 10:50 Estimated Creat Clear 37 mL/min (50-200) 09/16/19 10:50 Clinical Trial Participant: No - Prophylaxis VTE Prophylaxis Ordered?: Yes Types of VTE Prophylaxis: TEDS Knee High
[2019-09-16 16:46] LABS: ABG Base Excess 4.2 mmol/L (-2.4-2.3); ABG HCO3 30.9 mmhg (22.0-26.0); ABG Oxygen Saturation 97 % (90-100); ABG PH 7.28 mmol/L (7.35-7.45); ABG PO2 98.1 mmhg (80-100)
[2019-09-16 16:49] LABS: Oxygen 50 %; Tidal Volume BIPAP 25/10
[2019-09-16 16:50] LABS: ABG PCO2 67.2 mmhg (35.0-45.0)
--- NOTE | 2019-09-16 17:49 | Progress Note ---
Acute Rapid Response Note - Subjective Date Responded: 09/16/19 Time Responded: 17:00 - Objective Findings: Vital Signs - Last 4 Hours Temperature 97.0 F L 09/16/19 15:56 Temperature Source Axillary 09/16/19 15:56 Pulse Rate 94 H 09/16/19 15:56 Respiratory Rate 21 09/16/19 15:56 Blood Pressure 110/52 L 09/16/19 15:56 Blood Pressure Mean 71 09/16/19 15:56 Blood Pressure Source Automatic Cuff 09/16/19 15:56 Blood Pressure Position Supine 09/16/19 15:56 02 Sat by Pulse Oximetry 97 09/16/19 15:56 Oxygen Delivery Method 09/16/19 15:56 Oxygen Flow Rate (LPM) 14 09/16/19 15:56 Lab Results for Past 12 Hours 09/16/19 16:44: Specimen Source R brachial, O2 % 50, ABG pH 7.28 L, ABG pCO2 67.2 H, ABG pO2 98.1, ABG HCO3 30.9 H, ABG Total CO2 33.0 H, ABG O2 Saturation 97, ABG Base Excess 4.2 H, Vent Rate 20, Tidal Volume Bipap 25/10 09/16/19 14:06: Troponin I 0.07 H 09/16/19 10:55: Influenza Type A Ag Negative, Influenza Type B Ag Negative 09/16/19 10:55: Urine Color Dk yellow, Urine Appearance Clear, Urine pH 5.5, Ur Specific [place] >= 1.030, Urine Protein 1+, Urine Glucose (UA) Negative, Urine Ketones Trace, Urine Blood Negative, Urine Nitrate Negative, Urine Bilirubin Negative, Urine Urobilinogen 0.2, Ur Leukocyte Esterase Negative, Urine RBC None, Urine WBC None, Ur Squamous Epith Cells 10-20, Amorphous Sediment 2+, Urine Bacteria None, Coarse Granular Casts Occasional 09/16/19 10:50: B-Natriuretic Peptide 934 H 09/16/19 10:50: Lactate 1.8 09/16/19 10:50: Sodium 135 L, Potassium 4.3, Chloride 95 L, Carbon Dioxide 33 H, Anion Gap 11.3, BUN 27 H, Creatinine 2.02 H, Estimated Creat Clear 37, Estimated GFR 24 L, Est GFR ( Amer) 29 L, Glucose 179 H, Calcium 9.1, Total Bilirubin 0.4, AST 26, ALT 29, Alkaline Phosphatase 119 H, Total Protein 7.3, Albumin 2.3 L, Globulin 5.0 H, Albumin/Globulin Ratio 0.5 L, TSH 1.63, Free T4 1.21 09/16/19 10:50: WBC 18.0 H, RBC 3.34 L, Hgb 10.1 L, Hct 31.7 L, MCV 95.1, MCH 30.4, MCHC 32.0, RDW 13.2, Plt Count 309, MPV 8.4, Neut % (Auto) 93.6 H, Lymph % (Auto) 3.3 L, Vance % (Auto) 2.7, Eos % (Auto) 0.1, Baso % (Auto) 0.2, Neut # (Auto) 16.8 H, Lymph # (Auto) 0.6 L, Vance # (Auto) 0.5, Eos # (Auto) 0.0, Baso # (Auto) 0.0, Total Counted 100, Neutrophils % (Manual) 85 H, Band Neutrophils % 4.0, Lymphocytes % (Manual) 8 L, Monocytes % (Manual) 1 L, Metamyelocytes % 1.0, Myelocytes % 1, Platelet Estimate Normal, RBC Morphology Normal 09/16/19 10:50: Total Creatine Kinase 183, CK-MB (CK-2) 0.9, CK-MB (CK-2) Rel Index 0.5, Troponin I 0.08 H 09/16/19 10:48: Specimen Source R radial, O2 % 4lpm, ABG pH 7.34 L, ABG pCO2 60.9 H, ABG pO2 63.6 L, ABG HCO3 31.8 H, ABG Total CO2 33.7 H, ABG O2 Saturation 91, ABG Base Excess 6.0 H, Eliezer Test Acceptable My Orders Category Date Time Status Activity as ordered ORDER Care 09/16/19 12:57 Active validation manager ONGOING Care 09/16/19 10:49 Active DTA [Decision to Admit] Stat Care 09/16/19 12:03 Ordered ED EKG NOW Care 09/16/19 10:47 Completed Saline Lock Insertion Once Care 09/16/19 10:47 Active TEDS - Graduated comp stocking ONCE Care 09/16/19 12:57 Active Urinary Catheter, Insert NOW Care 09/16/19 10:47 Completed Diabetic Diet Diet 09/16/19 Lunch Active CXR --portable [XR chest portable] Stat Exams 09/16/19 17:18 Completed Pelvis XR 1-2 views [XR pelvis 1-2V] Stat Exams 09/16/19 10:48 Completed XR chest AP Stat Exams 09/16/19 10:47 Completed BNP [B-Type Natriuretic Peptide] Stat Lab 09/16/19 10:50 Completed Basic Metabolic Panel AMLAB Lab 09/17/19 06:00 Ordered Cardiac Enzymes Stat Lab 09/16/19 10:50 Completed Complete Blood Count Auto Diff AMLAB Lab 09/17/19 06:00 Ordered Complete Blood Count Auto Diff Stat Lab 09/16/19 10:50 Completed Comprehensive Metabolic Panel Stat Lab 09/16/19 10:50 Completed Flu A&B Antigens, Rapid [Rapid Influenza A&B Antigens] Lab 09/16/19 10:55 Completed Stat Free T4 (Free Thyroxine) Stat Lab 09/16/19 10:50 Completed Lactic Acid Stat Lab 09/16/19 10:50 Completed TSH [Thyroid Stimulating Hormone] Stat Lab 09/16/19 10:50 Completed Troponin I Timed Lab 09/16/19 14:06 Completed Urinalysis and Microscopic Stat Lab 09/16/19 10:55 Completed 0.9 % Sodium Chloride [Sod Chlor 0.9% 1000mL Bag] 1,000 Med 09/16/19 11:45 Discontinued ml IV 150 mls/hr 0.9 % Sodium Chloride [Sod Chlor 0.9% 1000mL Bag] 1,000 Med 09/16/19 12:57 Active ml IV 150 mls/hr 0.9 % Sodium Chloride [Sod Chlor 0.9% 1000mL Bag] 1,000 Med 09/16/19 11:49 Discontinued ml IV As directed ALPRAZolam [Xanax 1mg tablet] Med 09/16/19 12:57 Active 1 mg PO TIDP PRN Amitriptyline HCl [Elavil 50mg tablet] Med 09/16/19 21:00 Active 100 mg PO HS Aspirin [Aspirin 325mg Tablet] Med 09/16/19 11:20 Discontinued 325 mg PO Q4HP PRN Aspirin [Aspirin 325mg Tablet] Med 09/16/19 11:19 Discontinued 650 mg .ROUTE .STK-MED ONE Aspirin [Aspirin 325mg Tablet] Med 09/16/19 11:29 Discontinued 650 mg PO Q4HP PRN Aspirin [Aspirin 325mg Tablet] Med 09/16/19 12:57 Active 650 mg PO Q4HP PRN Doxazosin Mesylate [Cardura 4mg tablet] Med 09/17/19 09:00 Active 4 mg PO DAILY Insulin Lispro [humaLOG 100 units/mL 3mL vial (SSI)] Med 09/16/19 16:30 Active See Protocol SQ ACHS Ipratropium/Albuterol Sulfate [Duoneb 3mL neb] Med 09/16/19 10:47 Discontinued 3 ml IH .STK-MED ONE Irbesartan [Avapro 150mg tablet] Med 09/17/19 09:00 Active 150 mg PO DAILY Levofloxacin/D5w 750 mg/150 ml [Levofloxacin 750mg/ Med 09/16/19 11:49 Di scontinued 150mL premix] 750 mg in 150 ml IV As directed Levofloxacin/D5w 750 mg/150 ml [Levofloxacin 750mg/ Med 09/16/19 11:45 Discontinued 150mL premix] 750 mg in 150 ml IV Q24H Levofloxacin/D5w 750 mg/150 ml [Levofloxacin 750mg/ Med 09/17/19 12:00 Active 150mL premix] 750 mg in 150 ml IV Q24H Levothyroxine Sodium [Synthroid 88mcg (0.088mg) tablet] Med 09/17/19 07:00 Active 88 mcg PO DAILYDM Methylprednisolone Sod Succ/Pf [Solu-Medrol 125mg/2mL Med 09/16/19 11:19 Discontinued vial] 125 mg .ROUTE .STK-MED ONE Methylprednisolone Sod Succ/Pf [Solu-Medrol 125mg/2mL Med 09/16/19 11:21 Discontinued vial] 125 mg IV ONCE ONE Pravastatin Sodium [Pravachol 40mg tablet] Med 09/16/19 21:00 Active 40 mg PO HS levalbuterol HCL [Xopenex 1.25mg/3mL neb] Med 09/16/19 11:01 Discontinued 1.25 mg IH .STK-MED ONE Blood Culture Stat Micro 09/16/19 10:48 Received Admit Patient; Inpt/Acute Routine Oth 09/16/19 12:57 Ordered Code Status Routine Oth 02/14/20 12:05 Ordered Arterial Blood Gas Stat RT 09/16/19 10:48 Completed BIPAP CONT RT 09/16/19 11:25 Completed Transfer Order Routine Transfer 09/16/19 12:05 Completed Rapid Response Exam - General General appearance: alert RR Procedures/Assess/Plan - Assessment and plan all Dx Assessment and Plan for all problems:: Called to intubate patient per Dr. Schultz's request. Worsening blood gases and mental status. Upon my arrival, the patient is responsive to pain, grimacing and opening her eyes, but not verbal. She is on BiPAP and respiratory therapy reports that tidal volumes have been decreasing Endotracheal Intubation Performed by: DARWIN ACHARYA Consent: The procedure was performed in an emergent situation. Patient identity confirmed: arm band Indications: airway protection respiratory failure Intubation method: rapid sequence intubation with sedation and NMB Pretreatment medications: None. Preoxygenated. Sedatives: Ketamine Paralytic: Succinylcholine Laryngoscope: Direct, Henriquez 3 Tube size: 7.5 mm Tube type: cuffed Number of attempts: 1 Cords visualized: yes Post-procedure assessment: chest rise and CO2 detector Breath sounds: equal and absent over the epigastrium Cuff inflated: yes ETT to teeth: cm Tube secured with: ETT [email or web address] Chest x-ray interpreted by me. Chest x-ray findings: endotracheal tube in appropriate position Patient tolerance: Patient tolerated the procedure well with no immediate complications.
[2019-09-16 18:27] LABS: ABG Base Excess 0.4 mmol/L (-2.4-2.3); ABG HCO3 27.2 mmhg (22.0-26.0); ABG Oxygen Saturation 90 % (90-100); ABG PH 7.28 mmol/L (7.35-7.45)
[2019-09-16 18:30] LABS: Allen's Test Patient Unable; Oxygen 50 %; PEEP 5; Tidal Volume 450
[2019-09-16 18:31] LABS: ABG PCO2 59.9 mmhg (35.0-45.0)
[2019-09-16 20:05] LABS: ABG Base Excess 0.5 mmol/L (-2.4-2.3); ABG HCO3 26.7 mmhg (22.0-26.0); ABG Oxygen Saturation 89 % (90-100); ABG PH 7.31 mmol/L (7.35-7.45); ABG PO2 60.2 mmhg (80-100); ABG TCO2 28.3 mmhg (23-27)
[2019-09-16 20:07] LABS: Allen's Test Patient Unable; Oxygen 50 %; PEEP 8; Tidal Volume 400
[2019-09-16 20:08] LABS: ABG PCO2 53.8 mmhg (35.0-45.0)
[2019-09-17 05:25] LABS: ABG Base Excess 1.6 mmol/L (-2.4-2.3); ABG HCO3 26.9 mmhg (22.0-26.0); ABG Oxygen Saturation 93 % (90-100); ABG PCO2 47.8 mmhg (35.0-45.0); ABG PH 7.37 mmol/L (7.35-7.45); ABG PO2 69.7 mmhg (80-100); ABG TCO2 28.4 mmhg (23-27)
[2019-09-17 05:46] LABS: Basophils % 0.1 % (0.1-2.0); Lymphocytes # 0.4 K/mm3 (0.7-4.5); Lymphocytes % 2.6 % (10-50); Mean Corpuscular HGB Conc 31.4 g/dL (31.8-35.4); Mean Corpuscular Volume 95.5 fl (81-99); Mean Platelet Volume 8.2 fl (7.4-10.4); Monocytes # 0.4 K/mm3 (0.1-1.0); Monocytes % 2.6 % (1.7-9.3); Neutrophils # 13.4 K/mm3 (1.8-7.8); Neutrophils % 94.6 % (37.0-80.0); Platelet Count 265 K/mm3 (142-424); Red Blood Count 2.92 M/mm3 (4.20-5.40); Red Cell Distribution Width 13.4 % (11.5-17.5); White Blood Count 14.2 K/mm3 (4.8-10.8)
[2019-09-17 05:51] LABS: Hemoglobin 8.8 g/dL (12.2-16.2)
[2019-09-17 05:52] LABS: Anion Gap 13.7 mEq/L (5-15); Calcium 8.4 mg/dL (8.5-10.1); Hematocrit 27.9 % (37.0-47.0)
[2019-09-17 06:02] LABS: Lymphocytes % 8 % (10-50); Monocytes % 1 % (2-9); Neutrophils % 75 % (42-76); Total Cells Counted 100
[2019-09-17 06:03] LABS: Hypochromasia 3+; Rouleaux 2+
[2019-09-17 06:33] LABS: Oxygen 50 %; PEEP 8; Tidal Volume 400
--- NOTE | 2019-09-17 18:37 | Progress Note ---
Critical Care Event Note Code activated: No Narrative: Critical CARE time: 30 minutes the high probability of a clinically significant, sudden or life threatening deterioration of critically ill elderly adult required my full and direct attention, intervention and personal management. The time I documented below is in addition to time spent performing reported procedures but includes the following listed in this critical care notation. Spent greater than 30 minutes at bedside in direct patient care, ventilator adju stment and management, hemodynamic monitoring and evaluation of patient's clinical status. 69-year-old female with acute hypoxemic respiratory failure on SIMV rate of 20, PEEP of 8, tidal volume 400, FiO2 50%. Blood gas from this morning reviewed and adjustments made per orders to respiratory therapy. X-rays reviewed including placement of ET tube and progression of right-sided pneumonia. Continues to require intubation and sedation today pending improvement in ventilatory support needs. Patient remained stable with improved oxygenation and ventilation. Family at bedside and updated of plan. Critical care time: less than 30 mins [place] Critical Care Exam Vital signs: Temp Pulse Resp BP Pulse Ox 98.4 F 67 20 142/73 H 98 09/17/19 18:00 09/17/19 18:00 09/17/19 18:00 09/17/19 18:00 09/17/19 18:00
--- NOTE | 2019-09-17 18:41 | Progress Note ---
Internal Medicine - PN: Subj *Date: 09/17/19 *Time: 08:55 Interval history: Please see critical care note for full documentation of time and management of vent. On evaluation this morning patient showing improved tolerance of ventilator with improved oxygenation and exam findings on lung exam. Family at bedside and updated of plan. Patient appears comfortable on propofol drip. Urine output stable. Afebrile and hemodynamically stable. Improved aeration in right lung field. No diarrhea, bleeding, bowel movements. Further review of systems limited by sedation Exam Vital signs and Labs for Last 24 Hours: Temp Pulse Resp BP Pulse Ox 98.4 F 67 20 142/73 H 98 09/17/19 18:00 09/17/19 18:00 09/17/19 18:00 09/17/19 18:00 09/17/19 18:00 Laboratory Results - last 24 hr 09/16/19 20:03: Specimen Source Left radial, O2 % 50, ABG pH 7.31 L, ABG pCO2 53.8 H, ABG pO2 60.2 L, ABG HCO3 26.7 H, ABG Total CO2 28.3 H, ABG O2 Saturation 89 L, ABG Base Excess 0.5, Eliezer Test Patient unable, Vent Rate 20, Tidal Volume 400, PEEP 8 09/16/19 21:19: POC Glucose 254 H 09/17/19 05:20: WBC 14.2 H, RBC 2.92 L, Hgb 8.8 L D, Hct 27.9 L, MCV 95.5, MCH 30.0, MCHC 31.4 L, RDW 13.4, Plt Count 265, MPV 8.2, Neut % (Auto) 94.6 H, Lymph % (Auto) 2.6 L, [place] % (Auto) 2.6, Eos % (Auto) 0.0 L, Baso % (Auto) 0.1, Neut # (Auto) 13.4 H, Lymph # (Auto) 0.4 L, [place] # (Auto) 0.4, Eos # (Auto) 0.0, Baso # (Auto) 0.0, Total Counted 100, Neutrophils % (Manual) 75, Band Neutrophils % 16.0 H, Lymphocytes % (Manual) 8 L, Monocytes % (Manual) 1 L, Platelet Estimate Normal, Hypochromasia 3+, Rouleaux 2+ 09/17/19 05:20: Sodium 136 L, Potassium 3.7, Chloride 99, Carbon Dioxide 27, Anion Gap 13.7, BUN 43 H D, Creatinine 1.92 H, Estimated Creat Clear 38, Estimated GFR 26 L, Est GFR ( Amer) 31 L, Glucose 225 H D, Calcium 8.4 L 09/17/19 05:55: POC Glucose 259 H 09/17/19 06:00: Specimen Source Right brachial, O2 % 50, ABG pH 7.37, ABG pCO2 47.8 H, ABG pO2 69.7 L, ABG HCO3 26.9 H, ABG Total CO2 28.4 H, ABG O2 Saturation 93, ABG Base Excess 1.6, Vent Rate 20, Tidal Volume 400, PEEP 8 09/17/19 12:07: POC Glucose 252 H I & O for Last 24 hours: Intake & Output 09/14/19 09/15/19 09/16/19 09/17/19 23:59 23:59 23:59 23:59 Intake Total 1452 / 1619 2873 / 2873 Output Total 902 / 936 1810 / 1810 Balance 550 / 683 1063 / 1063 Weight 87.628 kg Microbiology Reports for the Last 24 Hours: Microbiology 09/16/19 17:20 Sputum - Expectorated Sputum Gram Stain - Final - Constitutional no acute distress Comments: sedated - *Routine HEENT Exam Head: Present: normocephalic Eye: Present: PERRL ENT: Present: mucous membranes moist Comments: ETT in place 20 cm at the gumline - *Routine Neck Exam Present: supple. Absent: JVD, lymphadenopathy - *Routine Respiratory Exam Present: patient mechanically ventilated Comments: Mechanical breath sounds bilaterally, good aeration bilaterally, faint crackles right side, left side clear. - *Routine Cardiovascular Exam Present: RRR. Absent: murmur - *Routine Abdominal Exam Present: soft, normoactive bowel sounds. Absent: tenderness - *Routine Extremities Exam Present: edema (trace LE edema). Absent: cyanosis, clubbing - *Routine Skin Exam Present: warm. Absent: rash - *Routine Neurological Exam Present: alert, oriented X3 sedated Assessment and Plan (1) Generalized anxiety disorder Current visit: Yes Status: Acute Category: Medical Code(s): F41.1 - Generalized anxiety disorder (2) Diabetes mellitus type 2, noninsulin dependent Current visit: Yes Status: Acute Category: Medical Code(s): E11.9 - Type 2 diabetes mellitus without complications (3) Obesity (BMI 30.0-34.9) Current visit: Yes Status: Acute Category: Medical Code(s): E66.9 - Obesity, unspecified (4) Community acquired pneumonia Current visit: Yes Status: Acute Qualifiers: Laterality: right Lung location: unspecified part of lung Qualified Code(s): J18.9 - Pneumonia, unspecified organism Category: Medical Code(s): J18.9 - Pneumonia, unspecified organism (5) Respiratory failure Current visit: Yes Status: Acute Qualifiers: Chronicity: acute on chronic Respiratory failure complication: hypoxia and hypercapnia Qualified Code(s): J96.21 - Acute and chronic respiratory failure with hypoxia; J96.22 - Acute and chronic respiratory failure with hypercapnia Category: Medical Code(s): J96.90 - Respiratory failure, unspecified, unspecified whether with hypoxia or hypercapnia (6) Severe sepsis Current visit: Yes Status: Acute Category: Medical Code(s): A41.9 - Sepsis, unspecified organism; R65.20 - Severe sepsis without septic shock (7) Acute kidney injury Current visit: Yes Status: Acute Category: Medical Code(s): N17.9 - Acute kidney failure, unspecified Monitoring improvement of fluid resuscitation, slight improvement today. Caution with nephrotoxins, repeat labs in the morning (8) Acute respiratory distress syndrome (ARDS) Current visit: Yes Status: Acute Category: Medical Code(s): J80 - Acute respiratory distress syndrome PaO2/FiO2 139 (moderate ARDS). Prominent right lung field opacification with left lower lung field airspace disease on x-ray, secondarily to pneumonia, within a week of onset of pneumonia. Respiratory support per arginate protocols. Making good progress today. If able to obtain goal of less than 40% FiO2 and less than PEEP of 8 tomorrow, wean sedation with tolerance of spontaneous breathing trial, able to follow commands and protect airway, will then attempt extubation in the morning. Repeat blood gas in the morning. Will make decision for extubation to BiPAP versus the Ventimask pending blood gas in the morning. - Assessment and plan all Dx Assessment and Plan for all problems:: 69-year-old female with consolidation of right lung due to community acquired pneumonia with hypoxemic and hypercarbic respiratory failure necessitating intubation and ventilator support. Showing improvement today on her blood gas with improved oxygenation and ventilation. Blood gas stable with resolution of respiratory acidosis. Permissive hypercapnia. Adequate oxygenation. Patient's respiratory needs meet criteria for ARDS. Continue antibiotics and steroids. Fluids at maintenance rate. Initiate PPI and DVT prophylaxis. Patient not clinically improved to the point she is ready for extubation. We will continue to wean per ARDS protocol recommendations to meet criteria as per above in ARDS section of note. -Full code -Head of bed greater than 30 degrees -Bates catheter, strict ins and outs -Plov -Protonix daily -Chest x-ray in the morning to assess ET tube placement and improvement in airspace disease -Plan for dose of Lasix in the morning before spontaneous breathing trial prior to attempted extubation Continues to require ICU level management. Patient's condition critical, prognosis fair
[2019-09-18 05:52] LABS: Basophils % 0.3 % (0.1-2.0); Hemoglobin 8.7 g/dL (12.2-16.2); Lymphocytes # 0.4 K/mm3 (0.7-4.5); Lymphocytes % 3.2 % (10-50); Mean Corpuscular HGB Conc 30.5 g/dL (31.8-35.4); Mean Platelet Volume 7.8 fl (7.4-10.4); Monocytes # 0.4 K/mm3 (0.1-1.0); Neutrophils # 12.8 K/mm3 (1.8-7.8); Neutrophils % 93.5 % (37.0-80.0); Platelet Count 317 K/mm3 (142-424); Red Blood Count 2.93 M/mm3 (4.20-5.40); Red Cell Distribution Width 13.8 % (11.5-17.5); White Blood Count 13.7 K/mm3 (4.8-10.8)
[2019-09-18 05:56] LABS: Hematocrit 28.7 % (37.0-47.0)
[2019-09-18 06:05] LABS: Albumin Level 1.7 g/dL (3.4-5.0); Albumin/Globulin Ratio 0.4 (1.1-1.8); Anion Gap 13.1 mEq/L (5-15); Bilirubin,Total 0.3 mg/dL (0.2-1.0); Calcium 8.1 mg/dL (8.5-10.1); Globulin 4.6 gm/dl (1.3-3.2); Phosphorous 3.3 mg/dL (2.4-4.9); Total Protein,Serum 6.3 g/dL (6.4-8.2)
[2019-09-18 06:05] LABS: ABG HCO3 22.5 mmhg (22.0-26.0); ABG Oxygen Saturation 93 % (90-100); ABG PCO2 40.8 mmhg (35.0-45.0); ABG PH 7.36 mmol/L (7.35-7.45); ABG PO2 76.3 mmhg (80-100); ABG TCO2 23.7 mmhg (23-27)
[2019-09-18 06:07] LABS: Allen's Test ACCEPTABLE; Oxygen 40 %; PEEP 5; Tidal Volume 400
[2019-09-18 06:49] LABS: Hypochromasia 1+; Lymphocytes % 20 % (10-50); Macrocytosis 1+; Neutrophils % 66 % (42-76); Total Cells Counted 100
--- NOTE | 2019-09-18 19:21 | Progress Note ---
Internal Medicine - PN: Subj *Date: 09/18/19 *Time: 08:15 Interval history: Patient did well overnight with good tolerance of ventilator for respiratory support. Blood gas this morning showed normal pH, improved oxygenation and ventilation. Weaned off propofol and tolerated spontaneous breathing trial. Able to follow commands, cough on command, stick her thumbs up (actually patient preferred to stick them down as she was quite ornery this morning), and could stick her tongue out. Extubated on morning rounds. Tolerating transition to BiPAP with stable oxygenation FiO2 40%. Afebrile. Blood pressure elevated this morning. Denies chest pain, nausea, vomiting, diarrhea. Is somewhat confused and disoriented to person and place. Expressing frustration with her care and has made several negative comments during discussion on morning rounds. Critical CARE time: 30 minutes the high probability of a clinically significant, sudden or life threatening deterioration of required my full and direct attention, intervention and personal management. The time I documented below is in addition to time spent performing reported procedures but includes the following listed in this critical care notation. Provided critical care today including overseeing extubation, transition to BiPAP, and management of labile blood pressure and delirium. At bedside for 30 minutes through combination of extubation and direct patient care with patient's family and her agitation. Exam Vital signs and Labs for Last 24 Hours: Temp Pulse Resp BP Pulse Ox 97.4 F L 101 H 26 H 173/94 H 90 L 09/18/19 18:00 09/18/19 18:00 09/18/19 18:00 09/18/19 18:00 09/18/19 18:00 Laboratory Results - last 24 hr 09/17/19 17:14: POC Glucose 272 H 09/17/19 20:54: POC Glucose 270 H 09/18/19 05:10: POC Glucose 304 H* 09/18/19 05:30: WBC 13.7 H, RBC 2.93 L, Hgb 8.7 L, Hct 28.7 L, MCV 98.0, MCH 29.9, MCHC 30.5 L, RDW 13.8, Plt Count 317, MPV 7.8, Neut % (Auto) 93.5 H, Lymph % (Auto) 3.2 L, [place] % (Auto) 3.0, Eos % (Auto) 0.0 L, Baso % (Auto) 0.3, Neut # (Auto) 12.8 H, Lymph # (Auto) 0.4 L, [place] # (Auto) 0.4, Eos # (Auto) 0.0, Baso # (Auto) 0.0, Total Counted 100, Neutrophils % (Manual) 66, Band Neutrophils % 14.0 H, Lymphocytes % (Manual) 20, Platelet Estimate Normal, Hypochromasia 1+, Macrocytosis 1+ 09/18/19 05:30: Sodium 139, Potassium 4.1, Chloride 105, Carbon Dioxide 25, Anion Gap 13.1, BUN 46 H, Creatinine 1.44 H D, Estimated Creat Clear 54, Estimated GFR 36 L, Est GFR ( Amer) 44 L D, Glucose 305 H, Calcium 8.1 L, Phosphorus 3.3, Magnesium 2.5 H, Total Bilirubin 0.3, AST 106 H D, ALT 82 H D, Alkaline Phosphatase 95, Total Protein 6.3 L, Albumin 1.7 L, Globulin 4.6 H, Albumin/Globulin Ratio 0.4 L 09/18/19 06:00: Specimen Source Right radial, O2 % 40, ABG pH 7.36, ABG pCO2 40.8, ABG pO2 76.3 L, ABG HCO3 22.5, ABG Total CO2 23.7, ABG O2 Saturation 93, ABG Base Excess -3.0 L, Eliezer Test Acceptable, Vent Rate 20, Tidal Volume 400, PEEP 5 09/18/19 11:20: POC Glucose 294 H 09/18/19 16:45: POC Glucose 267 H I & O for Last 24 hours: Intake & Output 09/15/19 09/16/19 09/17/19 09/18/19 23:59 23:59 23:59 23:59 Intake Total 1452 / 1619 3605 / 3748 2418 / 2418 Output Total 902 / 936 2050 / 2090 2645 / 2645 Balance 550 / 683 1555 / 1658 -227 / -227 Weight 87.628 kg 93 kg Microbiology Reports for the Last 24 Hours: Microbiology 09/16/19 10:48 Blood Blood Culture - Preliminary NO GROWTH AFTER 48 HOURS 09/16/19 10:48 Blood Blood Culture - Preliminary NO GROWTH AFTER 48 HOURS 09/16/19 17:20 Sputum - Expectorated Sputum Gram Stain - Final 09/16/19 17:20 Sputum - Expectorated Sputum Sputum Culture - Preliminary 09/17/19 20:00 Sputum - Endotracheal Tube Aspirate Gram Stain - Final Narrative: - Constitutional no acute distress, sedated - *Routine HEENT Exam Head: Present: normocephalic Eye: Present: PERRL ENT: Present: mucous membranes moist Comments: ETT in place 20 cm at the gumline - *Routine Neck Exam Present: supple. Absent: JVD, lymphadenopathy - *Routine Respiratory Exam Present: patient mechanically ventilated Comments: Mechanical breath sounds bilaterally, good aeration bilaterally, faint crackles right side, left side clear. - *Routine Cardiovascular Exam Present: RRR. Absent: murmur - *Routine Abdominal Exam Present: soft, normoactive bowel sounds. Absent: tenderness - *Routine Extremities Exam Present: edema (trace LE edema). Absent: cyanosis, clubbing - *Routine Skin Exam Present: warm. Absent: rash - *Routine Neurological Exam Present: alert, oriented X3 sedated - Constitutional mild distress, obese Comments: Cooperative though difficult - *Routine HEENT Exam Head: Present: normocephalic Eye: Present: EOMI, PERRL ENT: Present: mucous membranes moist - *Routine Neck Exam Present: supple. Absent: lymphadenopathy - *Routine Respiratory Exam Present: wheezes, crackles (Quite prominent throughout right lung field, left lung field clear with faint crackles posterior lung field the base) - *Routine Cardiovascular Exam Present: tachycardia. Absent: murmur - *Routine Abdominal Exam Present: soft, normoactive bowel sounds. Absent: tenderness - *Routine Extremities Exam Absent: cyanosis, clubbing, edema - *Routine Skin Exam Present: warm. Absent: rash - *Routine Neurological Exam Present: alert, altered mental status, normal speech Disoriented to person place and time, answers questions intermittently appropriately. Having disoriented and imaginative thought process. Tangential Assessment and Plan (1) Generalized anxiety disorder Current visit: Yes Status: Acute Category: Medical Code(s): F41.1 - Generalized anxiety disorder (2) Diabetes mellitus type 2, noninsulin dependent Current visit: Yes Status: Acute Category: Medical Code(s): E11.9 - Type 2 diabetes mellitus without complications (3) Obesity (BMI 30.0-34.9) Current visit: Yes Status: Acute Category: Medical Code(s): E66.9 - Obesity, unspecified (4) Community acquired pneumonia Current visit: Yes Status: Acute Qualifiers: Laterality: right Lung location: unspecified part of lung Qualified Code(s): J18.9 - Pneumonia, unspecified organism Category: Medical Code(s): J18.9 - Pneumonia, unspecified organism (5) Respiratory failure Current visit: Yes Status: Acute Qualifiers: Chronicity: acute on chronic Respiratory failure complication: hypoxia and hypercapnia Qualified Code(s): J96.21 - Acute and chronic respiratory failure with hypoxia; J96.22 - Acute and chronic respiratory failure with hypercapnia Category: Medical Code(s): J96.90 - Respiratory failure, unspecified, unspecified whether with hypoxia or hypercapnia (6) Severe sepsis Current visit: Yes Status: Acute Category: Medical Code(s): A41.9 - Sepsis, unspecified organism; R65.20 - Severe sepsis without septic shock (7) Acute kidney injury Current visit: Yes Status: Acute Category: Medical Code(s): N17.9 - Acute kidney failure, unspecified (8) Acute respiratory distress syndrome (ARDS) Current visit: Yes Status: Acute Category: Medical Code(s): J80 - Acute respiratory distress syndrome (9) Delirium, acute Current visit: Yes Status: Acute Category: Medical Code(s): R41.0 - Disorientation, unspecified Prominent since extubation. Has been verbally combative at times with family and staff. Somewhat worsened through the day. Thought process not clear as to her condition nor the roles of caregivers. -Continue with regular redirection and reorientation. Promote day/night routine. Will resume home medications including her Ativan and Elavil as withdrawal from these medications for the past 3days may underlie her confusion -We will provide getting out of bed tomorrow and removal of Bates as soon as possible to allow for patient to become more active and decrease her disorientation (10) COPD (chronic obstructive pulmonary disease) Current visit: Yes Status: Chronic Category: Medical Code(s): J44.9 - Chronic obstructive pulmonary disease, unspecified Present on admission. On 2 L nasal cannula oxygen at baseline at home. (11) Hypertension Current visit: Yes Status: Chronic Qualifiers: Hypertension type: essential hypertension Qualified Code(s): I10 - Essential (primary) hypertension Category: Medical Code(s): I10 - Essential (primary) hypertension POA - Assessment and plan all Dx Assessment and Plan for all problems:: 69-year-old female with consolidation of right lung due to community acquired pneumonia with Acute on chronic hypoxemic and hypercarbic respiratory failure necessitating intubation and ventilator support. Extubated today to BiPAP. ween as tolerated to NC O2. Goal Sats >92% awake adn >8% asleep. - Shows signs of delirium, see above for recommendations - Continues to have Sx adn Diagnosis of ARDs. - Continue antibiotics and steroids, aggressive pulmonary toilet - Fluids at maintenance rate. - Bedside swallow. Advance diet pending assessment - Full code - Bates catheter, strict ins and outs - Plov - Protonix daily HTN - initiate PO meds as soon as able for better management PT assessment in Morning Continues to require ICU level management. Patient's condition serious and tenuous, prognosis fair
[2019-09-18 20:47] LABS: ABG Base Excess 4.1 mmol/L (-2.4-2.3); ABG HCO3 27.9 mmhg (22.0-26.0); ABG Oxygen Saturation 86 % (90-100); ABG PH 7.46 mmol/L (7.35-7.45); ABG TCO2 29.2 mmhg (23-27)
[2019-09-18 20:48] LABS: Allen's Test Y; Oxygen 40 %
[2019-09-18 20:50] LABS: ABG PO2 47.5 mmhg (80-100)
[2019-09-19 06:02] LABS: Basophils # 0.1 K/mm3 (0-0.2); Basophils % 0.9 % (0.1-2.0); Eosinophils % 0.1 % (0.1-12.0); Hematocrit 33.6 % (37.0-47.0); Lymphocytes # 0.4 K/mm3 (0.7-4.5); Lymphocytes % 2.9 % (10-50); Mean Corpuscular HGB Conc 30.5 g/dL (31.8-35.4); Mean Corpuscular Volume 97.1 fl (81-99); Mean Platelet Volume 7.6 fl (7.4-10.4); Monocytes # 0.6 K/mm3 (0.1-1.0); Monocytes % 4.2 % (1.7-9.3); Neutrophils # 12.1 K/mm3 (1.8-7.8); Platelet Count 341 K/mm3 (142-424); Red Blood Count 3.46 M/mm3 (4.20-5.40); Red Cell Distribution Width 13.8 % (11.5-17.5); White Blood Count 13.1 K/mm3 (4.8-10.8)
[2019-09-19 06:20] LABS: Anion Gap 10.8 mEq/L (5-15); Calcium 8.8 mg/dL (8.5-10.1); Phosphorous 2.8 mg/dL (2.4-4.9)
[2019-09-19 07:24] LABS: Eosinophils % 1 % (0-3); Hypochromasia 1+; Lymphocytes % 5 % (10-50); Monocytes % 4 % (2-9); Neutrophils % 90 % (42-76); Total Cells Counted 100
--- NOTE | 2019-09-19 07:36 | Progress Note ---
Internal Medicine - PN: Subj *Date: 09/19/19 *Time: 22:04 Interval history: Ms. Swan has had worsening delirium overnight with disorganized thinking, combative language and actions, refusal to take medications, and lack of sleep. Did not respond to Haldol dose for rest. Blood pressure has continued to climb as she is without her blood pressure medications. Stable oxygen requirement. Labs this morning reviewed, worsening hypernatremia. Poor p.o. intake as well. No family at bedside this morning on rounds. Patient oriented to self only on interview. Denies chest pain, nausea, vomiting. Complains of difficulty breathing. Afebrile. Exam Vital signs and Labs for Last 24 Hours: Temp Pulse Resp BP Pulse Ox 97.8 F 91 H 23 196/91 H 100 09/19/19 06:44 09/19/19 06:44 09/19/19 06:44 09/19/19 06:44 09/19/19 06:44 Laboratory Results - last 24 hr 09/18/19 11:20: POC Glucose 294 H 09/18/19 16:45: POC Glucose 267 H 09/18/19 19:41: POC Glucose 263 H 09/18/19 20:46: Specimen Source R/r, O2 % 40, ABG pH 7.46 H, ABG pCO2 40.0, ABG pO2 47.5 L, ABG HCO3 27.9 H, ABG Total CO2 29.2 H, ABG O2 Saturation 86 L*, ABG Base Excess 4.1 H, Eliezer Test Y, Vent Rate 18 09/19/19 05:11: POC Glucose 213 H 09/19/19 05:21: WBC 13.1 H, RBC 3.46 L, Hct 33.6 L, MCV 97.1, MCH 29.6, MCHC 30.5 L, RDW 13.8, Plt Count 341, MPV 7.6, Neut % (Auto) 92.0 H, Lymph % (Auto) 2.9 L, [place] % (Auto) 4.2, Eos % (Auto) 0.1, Baso % (Auto) 0.9, Neut # (Auto) 12.1 H, Lymph # (Auto) 0.4 L, [place] # (Auto) 0.6, Eos # (Auto) 0.0, Baso # (Auto) 0.1, Total Counted 100, Neutrophils % (Manual) 90 H, Lymphocytes % (Manual) 5 L, Monocytes % (Manual) 4, Eosinophils % (Manual) 1, Platelet Estimate Normal, Hypochromasia 1+ 09/19/19 05:21: Sodium 152 H*, Potassium 3.8, Chloride 115 H, Carbon Dioxide 30, Anion Gap 10.8, BUN 42 H, Creatinine 1.06 H D, Estimated Creat Clear 72, Estimated GFR 51 L, Est GFR ( Amer) 62 D, Glucose 230 H D, Calcium 8.8, Phosphorus 2.8, Magnesium 2.6 H I & O for Last 24 hours: Intake & Output 09/16/19 09/17/19 09/18/19 09/19/19 23:59 23:59 23:59 23:59 Intake Total 1452 / 1619 3605 / 3748 3059 / 3234 845 / 845 Output Total 902 / 936 2050 / 2090 3080 / 3155 802 / 802 Balance 550 / 683 1555 / 1658 - 43 / 43 Weight 87.628 kg 93 kg 92.99 kg Microbiology Reports for the Last 24 Hours: Microbiology 09/16/19 10:48 Blood Blood Culture - Preliminary NO GROWTH AFTER 48 HOURS 09/16/19 10:48 Blood Blood Culture - Preliminary NO GROWTH AFTER 48 HOURS 09/16/19 17:20 Sputum - Expectorated Sputum Gram Stain - Final 09/16/19 17:20 Sputum - Expectorated Sputum Sputum Culture - Preliminary - Constitutional mild distress, obese, combative, agitated - *Routine HEENT Exam Head: Present: normocephalic Eye: Present: EOMI, PERRL ENT: Present: mucous membranes moist - *Routine Neck Exam Present: supple. Absent: lymphadenopathy - *Routine Respiratory Exam Present: accessory muscle use, wheezes, crackles Comments: Coarse right-sided crackles throughout lung field, rhonchi that change with cough, wheeze diffusely in bilateral lung [place] with fair air movement in left lung field. Exam performed on nasal cannula oxygen - *Routine Cardiovascular Exam Present: tachycardia. Absent: murmur - *Routine Abdominal Exam Present: soft, normoactive bowel sounds. Absent: tenderness - *Routine Extremities Exam Present: edema. Absent: cyanosis, clubbing - *Routine Skin Exam Present: warm. Absent: rash - *Routine Neurological Exam Present: alert Oriented to person and location, disorganized thought process, speech understandable and coherent. Disoriented to time however surprisingly oriented to place. Stating "remove it all, I do not want any of this" in regard to respiratory support and IVs. - Routine Psychiatric Exam Present: anxious, agitated, paranoid. Absent: normal thought process, good insight, good judgment Assessment and Plan (1) Generalized anxiety disorder Current visit: Yes Status: Acute Category: Medical Code(s): F41.1 - Generalized anxiety disorder (2) Diabetes mellitus type 2, noninsulin dependent Current visit: Yes Status: Acute Category: Medical Code(s): E11.9 - Type 2 diabetes mellitus without complications (3) Obesity (BMI 30.0-34.9) Current visit: Yes Status: Acute Category: Medical Code(s): E66.9 - Obesity, unspecified (4) Community acquired pneumonia Current visit: Yes Status: Acute Qualifiers: Laterality: right Lung location: unspecified part of lung Qualified Code(s): J18.9 - Pneumonia, unspecified organism Category: Medical Code(s): J18.9 - Pneumonia, unspecified organism (5) Respiratory failure Current visit: Yes Status: Acute Qualifiers: Chronicity: acute on chronic Respiratory failure complication: hypoxia and hypercapnia Qualified Code(s): J96.21 - Acute and chronic respiratory failure with hypoxia; J96.22 - Acute and chronic respiratory failure with hypercapnia Category: Medical Code(s): J96.90 - Respiratory failure, unspecified, unspecified whether with hypoxia or hypercapnia (6) Severe sepsis Current visit: Yes Status: Acute Category: Medical Code(s): A41.9 - Sepsis, unspecified organism; R65.20 - Severe sepsis without septic shock (7) Acute kidney injury Current visit: Yes Status: Acute Category: Medical Code(s): N17.9 - Acute kidney failure, unspecified (8) Acute respiratory distress syndrome (ARDS) Current visit: Yes Status: Acute Category: Medical Code(s): J80 - Acute respiratory distress syndrome (9) Delirium, acute Current visit: Yes Status: Acute Category: Medical Code(s): R41.0 - Disorientation, unspecified (10) COPD (chronic obstructive pulmonary disease) Current visit: Yes Status: Chronic Category: Medical Code(s): J44.9 - Chronic obstructive pulmonary disease, unspecified (11) Hypertension Current visit: Yes Status: Chronic Qualifiers: Hypertension type: essential hypertension Qualified Code(s): I10 - Essential (primary) hypertension Category: Medical Code(s): I10 - Essential (primary) hypertension - Assessment and plan all Dx Assessment and Plan for all problems:: Ms. Swan is a critically ill 69-year-old female with acute on chronic hypoxemic respiratory failure due to pneumonia throughout right lung. Was successfully extubated yesterday with stable oxygenation. Tolerating intermittent use of BiPAP and nasal cannula oxygen. Has become more delirious since extubation with disorganized thought, combative behavior, waxing and waning alertness, and disorientation to time with mixed orientation to person and place. Resp: - continue BiPAP when asleep, and NC O2 when awake - Goal Sats >92% awake; >88% asleep. - Nebs scheduled and PRN, aggressive pulm. toilet - continue steroids and antibiotics for right-sided pneumonia and ARDS. Neuro - Shows signs of delirium: We will continue to reorient, established a night routine with opening windows and turning on lights, recommended nursing asked family to leave at a reasonable hour between 9 and 10 in the evening to allow patient to get some rest. Caution with restraints. Diabetes - Sliding scale insulin with increase in basal insulin glargine on tonight's dose. Fingersticks every 6 hours Hypernatremia -Given a liter of D5 half-normal to increase free water intake. Continue IV fluid at maintenance rate with LR. -Encourage p.o. intake, patient having poor compliance with p.o. fluids and medicines -Difficulty with p.o. intake, formal speech eval in the morning HTN - Initiated on Cardizem drip due to extreme hypertension and inability to take oral medications due to a delirium at this time. Will transition back to PO meds as soon as able for better management Continues to require ICU level management. Patient's condition serious and t enuous, prognosis fair - Full code - Bates catheter, strict ins and outs - Plov - Protonix daily
[2019-09-19 07:40] LABS: Hemoglobin 10.3 g/dL (12.2-16.2)
[2019-09-19 16:47] LABS: Anion Gap 12.2 mEq/L (5-15); Calcium 8.4 mg/dL (8.5-10.1)
--- NOTE | 2019-09-19 18:37 | Electrocardiograph Report ---
APPROVED REPORT Exam: Resting ECG HR:109 bpm ECG Measurements Heart Rate 109 AXES ME 190 P 35 QRSd 86 QRS 11 QT 318 T46 QTc 428 <Conclusion> Sinus tachycardia Low voltage QRS Incomplete RBBB Abnormal ECG Electronically signed by : Weston Lay, 09/19/2019 18:36:36
[2019-09-20 06:07] LABS: Basophils # 0.1 K/mm3 (0-0.2); Basophils % 0.8 % (0.1-2.0); Eosinophils % 0.1 % (0.1-12.0); Hematocrit 33.6 % (37.0-47.0); Hemoglobin 10.3 g/dL (12.2-16.2); Lymphocytes # 0.5 K/mm3 (0.7-4.5); Lymphocytes % 3.2 % (10-50); Mean Corpuscular HGB Conc 30.6 g/dL (31.8-35.4); Mean Corpuscular Volume 97.6 fl (81-99); Mean Platelet Volume 8.2 fl (7.4-10.4); Monocytes # 0.9 K/mm3 (0.1-1.0); Monocytes % 5.9 % (1.7-9.3); Neutrophils # 14.2 K/mm3 (1.8-7.8); Neutrophils % 89.9 % (37.0-80.0); Platelet Count 340 K/mm3 (142-424); Red Blood Count 3.45 M/mm3 (4.20-5.40); Red Cell Distribution Width 14.2 % (11.5-17.5); White Blood Count 15.8 K/mm3 (4.8-10.8)
[2019-09-20 06:41] LABS: Albumin/Globulin Ratio 0.4 (1.1-1.8); Bilirubin,Total 0.4 mg/dL (0.2-1.0); Calcium 8.8 mg/dL (8.5-10.1); Globulin 4.5 gm/dl (1.3-3.2); Phosphorous 2.2 mg/dL (2.4-4.9); Total Protein,Serum 6.5 g/dL (6.4-8.2)
--- NOTE | 2019-09-20 09:06 | Progress Note ---
Internal Medicine - PN: Subj *Date: 09/20/19 *Time: 08:30 Interval history: Ms. Swan was cooperative this morning. Oriented to person and place. Continues to be hypertensive necessitating nicardipine drip. She has poor insight into current condition and potential needs for escalation of care. Answers yes to placing NG, subsequently states she wants her daughter to place it. Afebrile. No nausea, vomiting, diarrhea. Denies chest pain. Persistent shortness of breath. Daughter at bedside on rounds, spoke to later in the afternoon who is at bedside. Extensive discussion about worsening clinical condition and concern for need to escalate care if we do not start to see improvement or begin to see continued decompensation. He continues to state they want everything done including reintubation if deemed necessary. Exam Vital signs and Labs for Last 24 Hours: Temp Pulse Resp BP Pulse Ox 98.4 F 120 H 20 166/67 H 93 L 09/20/19 06:46 09/20/19 08:00 09/20/19 08:00 09/20/19 08:00 09/20/19 08:00 Laboratory Results - last 24 hr 09/19/19 11:13: POC Glucose 271 H 09/19/19 16:34: Sodium 152 H*, Potassium 4.2, Chloride 115 H, Carbon Dioxide 29, Anion Gap 12.2, BUN 32 H, Creatinine 0.91, Estimated Creat Clear 77, Estimated GFR 61, Est GFR ( Amer) 74, Glucose 263 H, Calcium 8.4 L 09/19/19 16:36: POC Glucose 245 H 09/19/19 19:44: POC Glucose 258 H 09/20/19 01:14: POC Glucose 245 H 09/20/19 05:33: WBC 15.8 H, RBC 3.45 L, Hgb 10.3 L, Hct 33.6 L, MCV 97.6, MCH 29.8, MCHC 30.6 L, RDW 14.2, Plt Count 340, MPV 8.2, Neut % (Auto) 89.9 H, Lymph % (Auto) 3.2 L, [place] % (Auto) 5.9, Eos % (Auto) 0.1, Baso % (Auto) 0.8, Neut # (Auto) 14.2 H, Lymph # (Auto) 0.5 L, [place] # (Auto) 0.9, Eos # (Auto) 0.0, Baso # (Auto) 0.1 09/20/19 05:33: Sodium 149 H, Potassium 4.0, Chloride 112 H, Carbon Dioxide 29, Anion Gap 12.0, BUN 26 H, Creatinine 0.88, Estimated Creat Clear 77, Estimated GFR 64, Est GFR ( Amer) 77, Glucose 274 H, Calcium 8.8, Phosphorus 2.2 L, Magnesium 2.2 D, Total Bilirubin 0.4, AST 23 D, ALT 54 H D, Alkaline Phosphatase 89, Total Protein 6.5, Albumin 2.0 L, Globulin 4.5 H, Albumin/Globulin Ratio 0.4 L 09/20/19 05:40: POC Glucose 277 H I & O for Last 24 hours: Intake & Output 09/17/19 09/18/19 09/19/19 09/20/19 23:59 23:59 23:59 23:59 Intake Total 3605 / 3748 3059 / 3234 4559 / 4559 2088 / 2088 Output Total 2049 / 2089 3080 / 3155 3957 / 3957 1030 / 1030 Balance 1555 / 1658 -21 / 79 602 / 602 1059 / 1059 Weight 93 kg 92.99 kg 97.125 kg Microbiology Reports for the Last 24 Hours: Microbiology 09/17/19 20:00 Sputum - Endotracheal Tube Aspirate Gram Stain - Final 09/17/19 20:00 Sputum - Endotracheal Tube Aspirate Sputum Culture - Preliminary 09/16/19 17:20 Sputum - Expectorated Sputum Gram Stain - Final 09/16/19 17:20 Sputum - Expectorated Sputum Sputum Culture - Final Normal Respiratory Estefania Narrative: - Constitutional moderate distress, obese, agitated - *Routine HEENT Exam Head: Present: normocephalic Eye: Present: EOMI, PERRL ENT: Present: mucous membranes moist - *Routine Neck Exam Present: supple. Absent: lymphadenopathy - *Routine Respiratory Exam Present: accessory muscle use, wheezes, crackles Comments: Coarse right-sided crackles throughout lung field, rhonchi that change with cough, wheeze diffusely in bilateral lung [place] with fair air movement in left lung field with worsening left lower lung field crackles; exam performed on nasal cannula oxygen - *Routine Cardiovascular Exam Present: tachycardia. Absent: murmur - *Routine Abdominal Exam Present: soft, normoactive bowel sounds. Absent: tenderness - *Routine Extremities Exam Present: 1+ edema to knees. Absent: cyanosis, clubbing - *Routine Skin Exam Present: warm. Absent: rash - *Routine Neurological Exam alert; Oriented to person and location, disorganized thought process, speech understandable and coherent intermittently. Disoriented to time however surprisingly oriented to place. answering inconsistently to questions about care. Does not have insight into current condition or care decisions. - Routine Psychiatric Exam Present: anxious, agitated, paranoid. Absent: normal thought process, good insight, good judgment Assessment and Plan (1) Generalized anxiety disorder Current visit: Yes Status: Acute Category: Medical Code(s): F41.1 - Generalized anxiety disorder (2) Diabetes mellitus type 2, noninsulin dependent Current visit: Yes Status: Acute Category: Medical Code(s): E11.9 - Type 2 diabetes mellitus without complications (3) Obesity (BMI 30.0-34.9) Current visit: Yes Status: Acute Category: Medical Code(s): E66.9 - Obesity, unspecified (4) Community acquired pneumonia Current visit: Yes Status: Acute Qualifiers: Laterality: right Lung location: unspecified part of lung Qualified Code(s): J18.9 - Pneumonia, unspecified organism Category: Medical Code(s): J18.9 - Pneumonia, unspecified organism (5) Respiratory failure Current visit: Yes Status: Acute Qualifiers: Chronicity: acute on chronic Respiratory failure complication: hypoxia and hypercapnia Qualified Code(s): J96.21 - Acute and chronic respiratory failure with hypoxia; J96.22 - Acute and chronic respiratory failure with hypercapnia Category: Medical Code(s): J96.90 - Respiratory failure, unspecified, unspecified whether with hypoxia or hypercapnia (6) Severe sepsis Current visit: Yes Status: Acute Category: Medical Code(s): A41.9 - Sepsis, unspecified organism; R65.20 - Severe sepsis without septic shock (7) Acute kidney injury Current visit: Yes Status: Acute Category: Medical Code(s): N17.9 - Acute kidney failure, unspecified (8) Acute respiratory distress syndrome (ARDS) Current visit: Yes Status: Acute Category: Medical Code(s): J80 - Acute respiratory distress syndrome (9) Delirium, acute Current visit: Yes Status: Acute Category: Medical Code(s): R41.0 - Disorientation, unspecified (10) COPD (chronic obstructive pulmonary disease) Current visit: Yes Status: Chronic Category: Medical Code(s): J44.9 - Chronic obstructive pulmonary disease, unspecified (11) Hypertension Current visit: Yes Status: Chronic Qualifiers: Hypertension type: essential hypertension Qualified Code(s): I10 - Essential (primary) hypertension Category: Medical Code(s): I10 - Essential (primary) hypertension - Assessment and plan all Dx Assessment and Plan for all problems:: Ms. Swan is a critically ill 69-year-old female with acute on chronic hypoxemic respiratory failure due to pneumonia throughout right lung, progressing left sided pneumonia, resolving BREANNA, and delirium. Increased usage of BiPAP due to respiratory distress. Extensive discussion with family today about concern that she has shown clinical decline in the past 24 hours. Family wishes to continue to pursue aggressive measures even if that necessitates reintubation. Discussed that reintubation would necessitate transfer to [facility] with [facility]. They request [facility] if possible, pending worsening status and potential ventilator needs. Remainder of plan below Resp: - continue BiPAP when asleep, and NC O2 when awake as tolerated - Goal Sats >92% awake; >88% asleep. - Nebs scheduled and PRN, aggressive pulm. toilet - continue steroids and antibiotics for right-sided pneumonia and ARDS. - Broaden Abx coverage today due to increased FiO2 requirement, vancomycin and Levaquin - CXR with worsening Airspace disease, more findings on left lung field Neuro - Shows signs of delirium: We will continue to reorient, established a night routine with opening windows and turning on lights, recommended nursing asked family to leave at a reasonable hour between 9 and 10 in the evening to allow p atient to get some rest. Caution with restraints. Diabetes - Sliding scale insulin with increase in basal insulin glargine on tonight's dose. Fingersticks every 6 hours Hypernatremia -Proving today. Continue to monitor with every 12 labs. Will increase free water in tube feeds after initiation today. -Maintenance IV fluids with LR. Renal -Resolved BREANNA -Caution with nephrotoxins HTN -Continue Cardizem drip while we reinitiate p.o. medications through NG tube. -Goal blood pressure less than 140 systolic. Nutrition/Fluids - NG placed today - nutrition consult placed, recommended continuous feeds with free water recs. See note for full recs. - decrease MIVF due to worsening respiratory status and edema Continues to require ICU level management. Patient's condition critical and tenuous, prognosis poor - Full code - Bates catheter, strict ins and outs - Plov - Protonix daily Critical CARE time: 30 minutes the high probability of a clinically significant, sudden or life threatening deterioration of infant required my full and direct attention, intervention and personal management. The time I documented below is in addition to time spent performing reported procedures but includes the following listed in this critical care notation. Critical care provided including management of noninvasive respiratory support, evaluation of electrolytes and organ function, adjustment of IV and oral medications, and counseling with family on critical status of patient with observed clinical decline in the past 24 hours. Discussion about goals of care with decision by family to increase/escalate respiratory support if the need arises. Family wishes to reintubate if it is necessary based on worsening respiratory status and clinical decompensation. Review of imaging this morning with x-ray showed proper placement of NG as well as stable right lung airspace disease, effusion, left lower lobe congestion versus atelectasis.
[2019-09-20 09:10] LABS: Lymphocytes % 4 % (10-50); Monocytes % 5 % (2-9); Neutrophils % 91 % (42-76); Total Cells Counted 100
[2019-09-20 09:11] LABS: Hypochromasia 1+
--- NOTE | 2019-09-20 09:14 | Pharmacy Consult Notes ---
- Pharmacy Consult Date: 09/20/19 Time: 09:12 Referring provider: DR. PAGE Reason for Consult:: VANCOMYCIN DOSING Allergies and ADEs:: Allergies Allergy/AdvReac Type Severity Reaction Status Date / Time cephalexin [CEPHALEXIN] Allergy Severe S-DIFF. Verified 06/20/19 10:45 BREATHING, SWELLING Sulfa (Sulfonamide Allergy Severe S-DIFF. Verified 06/20/19 10:45 Antibiotics) BREATHING, [SULFA (SULFONAMIDE SWELLING ANTIBIOTICS)] acetaminophen [From PERCOCET] Allergy Intermediate I-RASH, Verified 06/20/19 10:45 HEADACHE albuterol [ALBUTEROL] Allergy Intermediate I-RASH; Verified 06/20/19 10:45 HEADACHE amoxicillin [From AUGMENTIN] Allergy Intermediate I-RASH, Verified 06/20/19 10:45 HEADACHE atorvastatin [From LIPITOR] Allergy Intermediate I-ITCHING; Verified 06/20/19 10:45 HAIR FALLS OUT clavulanic acid Allergy Intermediate I-RASH, Verified 06/20/19 10:45 [From AUGMENTIN] HEADACHE codeine Allergy Intermediate I-RASH, Verified 06/20/19 10:45 [From TYLENOL-CODEINE] HEADACHE hydrocodone [From LORTAB] Allergy Intermediate I-ITCHING Verified 06/20/19 10:45 (IN LARGE DOSES PER PT.) morphine [MORPHINE] Allergy Intermediate I-RASH, Verified 06/20/19 10:45 HEADACHE, ASTHMA ATTACKS oxycodone [From PERCOCET] Allergy Intermediate I-RASH, Verified 06/20/19 10:45 HEADACHE tramadol [TRAMADOL] Allergy Intermediate I-RASH, Verified 06/20/19 10:45 HEADACHE ipratropium [IPRATROPIUM] Allergy Mild Unknown Verified 09/16/19 14:43 allergy reaction Home Medications:: Home Medications Medication Instructions Recorded Confirmed Type alprazolam 1 mg tablet 1 mg PO TIDP PRN 12/24/17 09/17/19 History amitriptyline 100 mg tablet 100 mg PO HS 12/24/17 09/16/19 History ammonium lactate 12 % lotion 1 applic TOPICAL BID PRN 12/24/17 09/16/19 History ascorbic acid (vitamin C) 500 mg 100 mg PO DAILY 12/24/17 09/16/19 History capsule bisoprolol 10 1 tab PO DAILY 12/24/17 09/16/19 History mg-hydrochlorothiazide 6.25 mg tablet doxazosin 4 mg tablet 4 mg PO DAILY 12/24/17 09/16/19 History insulin glargine U-300 conc 300 66 unit SUB-Q QHS 12/24/17 09/16/19 History unit/mL (3 mL) subcutaneous pen levothyroxine 88 mcg tablet 88 mcg PO DAILY 12/24/17 09/16/19 History losartan 100 mg tablet 100 mg PO DAILY 12/24/17 09/16/19 History metformin 1,000 mg tablet 1,000 mg PO BID 12/24/17 09/16/19 History simvastatin 40 mg tablet 40 mg PO HS 12/24/17 09/16/19 History triamcinolone acetonide 0.1 % 1 applic DENTAL QHS PRN 12/24/17 09/16/19 History dental paste umeclidinium 62.5 mcg/actuation 1 inh INHALATION Q24H 12/24/17 09/16/19 History blister powder for inhalation Diclofenac Sodium [Diclofenac 75mg 75 mg PO BID 09/16/19 09/16/19 History Tab] Venlafaxine HCl [Venlafaxine HCl 150 mg PO DAILY 09/16/19 09/16/19 History ER] Height: 1.63 m Weight: 97.125 kg Laboratory Results:: Laboratory Results - last 24 hr 09/19/19 11:13: POC Glucose 271 H 09/19/19 16:34: Sodium 152 H*, Potassium 4.2, Chloride 115 H, Carbon Dioxide 29, Anion Gap 12.2, BUN 32 H, Creatinine 0.91, Estimated Creat Clear 77, Estimated GFR 61, Est GFR ( Amer) 74, Glucose 263 H, Calcium 8.4 L 09/19/19 16:36: POC Glucose 245 H 09/19/19 19:44: POC Glucose 258 H 09/20/19 01:14: POC Glucose 245 H 09/20/19 05:33: WBC 15.8 H, RBC 3.45 L, Hgb 10.3 L, Hct 33.6 L, MCV 97.6, MCH 29.8, MCHC 30.6 L, RDW 14.2, Plt Count 340, MPV 8.2, Neut % (Auto) 89.9 H, Lymph % (Auto) 3.2 L, [place] % (Auto) 5.9, Eos % (Auto) 0.1, Baso % (Auto) 0.8, Neut # (Auto) 14.2 H, Lymph # (Auto) 0.5 L, [place] # (Auto) 0.9, Eos # (Auto) 0.0, Baso # (Auto) 0.1, Total Counted 100, Neutrophils % (Manual) 91 H, Lymphocytes % ([place]) 4 L, Monocytes % (Manual) 5, Platelet Estimate Normal, Hypochromasia 1+ 09/20/19 05:33: Sodium 149 H, Potassium 4.0, Chloride 112 H, Carbon Dioxide 29, Anion Gap 12.0, BUN 26 H, Creatinine 0.88, Estimated Creat Clear 77, Estimated GFR 64, Est GFR ( Amer) 77, Glucose 274 H, Calcium 8.8, Phosphorus 2.2 L, Magnesium 2.2 D, Total Bilirubin 0.4, AST 23 D, ALT 54 H D, Alkaline Phosphatase 89, Total Protein 6.5, Albumin 2.0 L, Globulin 4.5 H, Albumin/Globulin Ratio 0.4 L 09/20/19 05:40: POC Glucose 277 H Medical History: Reports:: Anxiety, Asthma, Chronic Obstructive Pulmonary Disease (COPD), Diabetes Mellitus Type 2, Hyperlipidemia, Hypertension, MRSA Denies:: Cancer, Diabetes Mellitus Type 1, Internal Pacemaker, Seizures Assessment and Plan (1) Generalized anxiety disorder Current visit: Yes Status: Acute Category: Medical Code(s): F41.1 - Generalized anxiety disorder (2) Diabetes mellitus type 2, noninsulin dependent Current visit: Yes Status: Acute Category: Medical Code(s): E11.9 - Type 2 diabetes mellitus without complications (3) Obesity (BMI 30.0-34.9) Current visit: Yes Status: Acute Category: Medical Code(s): E66.9 - Obesity, unspecified (4) Community acquired pneumonia Current visit: Yes Status: Acute Qualifiers: Laterality: right Lung location: unspecified part of lung Qualified Code(s): J18.9 - Pneumonia, unspecified organism Category: Medical Code(s): J18.9 - Pneumonia, unspecified organism (5) Respiratory failure Current visit: Yes Status: Acute Qualifiers: Chronicity: acute on chronic Respiratory failure complication: hypoxia and hypercapnia Qualified Code(s): J96.21 - Acute and chronic respiratory failure with hypoxia; J96.22 - Acute and chronic respiratory failure with hypercapnia Category: Medical Code(s): J96.90 - Respiratory failure, unspecified, unspecified whether with hypoxia or hypercapnia (6) Severe sepsis Current visit: Yes Status: Acute Category: Medical Code(s): A41.9 - Sepsis, unspecified organism; R65.20 - Severe sepsis without septic shock (7) Acute kidney injury Current visit: Yes Status: Acute Category: Medical Code(s): N17.9 - Acute kidney failure, unspecified (8) Acute respiratory distress syndrome (ARDS) Current visit: Yes Status: Acute Category: Medical Code(s): J80 - Acute respiratory distress syndrome (9) Delirium, acute Current visit: Yes Status: Acute Category: Medical Code(s): R41.0 - Disorientation, unspecified (10) COPD (chronic obstructive pulmonary disease) Current visit: Yes Status: Chronic Category: Medical Code(s): J44.9 - Chronic obstructive pulmonary disease, unspecified (11) Hypertension Current visit: Yes Status: Chronic Qualifiers: Hypertension type: essential hypertension Qualified Code(s): I10 - Essential (primary) hypertension Category: Medical Code(s): I10 - Essential (primary) hypertension - Assessment and plan all Dx Assessment and Plan for all problems:: BASED ON PATIENT'S FACTORS, RECOMMEND STARTING WITH VANCOMYCIN 2000 MG Q24H AT THIS TIME. PHARMACY WILL FOLLOW DAILY AND ADJUST APPROPRIATE.
[2019-09-20 19:01] LABS: ABG Base Excess 2.8 mmol/L (-2.4-2.3); ABG HCO3 27.9 mmhg (22.0-26.0); ABG Oxygen Saturation 93 % (90-100); ABG PH 7.38 mmol/L (7.35-7.45); ABG PO2 67.5 mmhg (80-100); ABG TCO2 29.4 mmhg (23-27)
[2019-09-20 19:02] LABS: Allen's Test Patient Unable; Oxygen 45% %
[2019-09-20 19:37] LABS: Bilirubin,Total 0.2 mg/dl (0.2-1.3)
[2019-09-20 19:38] LABS: Albumin Level 2.7 g/dl (3.5-5.0); Albumin/Globulin Ratio 0.8 (1.1-1.8); Anion Gap 4.2 mEq/L (5-15); Calcium 8.7 mg/dl (8.4-10.2); Globulin 3.2 g/dL (1.3-3.2); Total Protein,Serum 5.9 g/dl (6.3-8.2)
[2019-09-21 06:44] LABS: Basophils # 0.1 K/mm3 (0-0.2); Basophils % 0.6 % (0.1-2.0); Eosinophils % 0.1 % (0.1-12.0); Hematocrit 35.1 % (37.0-47.0); Hemoglobin 10.1 g/dL (12.2-16.2); Lymphocytes # 0.5 K/mm3 (0.7-4.5); Lymphocytes % 3.9 % (10-50); Mean Corpuscular HGB Conc 28.8 g/dL (31.8-35.4); Mean Corpuscular Volume 102.4 fl (81-99); Mean Platelet Volume 8.1 fl (7.4-10.4); Monocytes # 0.5 K/mm3 (0.1-1.0); Monocytes % 3.9 % (1.7-9.3); Neutrophils # 11.1 K/mm3 (1.8-7.8); Neutrophils % 91.5 % (37.0-80.0); Platelet Count 349 K/mm3 (142-424); Red Blood Count 3.43 M/mm3 (4.20-5.40); Red Cell Distribution Width 14.2 % (11.5-17.5); White Blood Count 12.1 K/mm3 (4.8-10.8)
[2019-09-21 07:14] LABS: Albumin Level 2.9 g/dl (3.5-5.0); Bilirubin,Total 0.3 mg/dl (0.2-1.3); Calcium 8.7 mg/dl (8.4-10.2); Phosphorous 3.1 mg/dl (2.5-4.5); Total Protein,Serum 5.9 g/dl (6.3-8.2)
[2019-09-21 07:15] LABS: Anion Gap 7.3 mEq/L (5-15)
[2019-09-21 07:46] LABS: ABG Base Excess 5.9 mmol/L (-2.4-2.3); ABG HCO3 31.4 mmhg (22.0-26.0); ABG Oxygen Saturation 91 % (90-100); ABG PH 7.36 mmol/L (7.35-7.45); ABG PO2 64.5 mmhg (80-100); ABG TCO2 33.1 mmhg (23-27)
[2019-09-21 07:47] LABS: Oxygen 45 %
[2019-09-21 07:48] LABS: ABG PCO2 56.9 mmhg (35.0-45.0); Allen's Test ACCEPTABLE
--- NOTE | 2019-09-21 08:21 | Progress Note ---
Internal Medicine - PN: Subj *Date: 09/21/19 *Time: 08:18 Interval history: Patient overnight remained on BiPAP. Blood gas last night was acceptable, and through the night patient was stable in regards to blood pressure, pulse and pulse oximetry readings. This morning she is responsive to tactile stimuli and will move her hands and open her eyes in response to questions. Exam Vital signs and Labs for Last 24 Hours: Temp Pulse Resp BP Pulse Ox 98.6 F 113 H 22 151/65 H 94 L 09/21/19 08:00 09/21/19 08:00 09/21/19 08:00 09/21/19 08:00 09/21/19 08:00 Laboratory Results - last 24 hr 09/20/19 05:33: Total Counted 100, Neutrophils % (Manual) 91 H, Lymphocytes % (Manual) 4 L, Monocytes % (Manual) 5, Platelet Estimate Normal, Hypochromasia 1+ 09/20/19 11:58: POC Glucose 299 H 09/20/19 17:52: POC Glucose 286 H 09/20/19 18:50: Specimen Source Right radial, O2 % 45%, ABG pH 7.38, ABG pCO2 48.0 H, ABG pO2 67.5 L, ABG HCO3 27.9 H, ABG Total CO2 29.4 H, ABG O2 Saturation 93, ABG Base Excess 2.8 H, Eliezer Test Patient unable 09/20/19 19:13: Sodium 147 H, Potassium 4.2, Chloride 114 H, Carbon Dioxide 33 H , Anion Gap 4.2 L, BUN 32 H, Creatinine 0.80, Estimated Creat Clear 80, Estimated GFR 71, Est GFR ( Amer) 86, Glucose 306 H, Calcium 8.7, Total Bilirubin 0.2, AST 26, ALT 46, Alkaline Phosphatase 83, Total Protein 5.9 L, Albumin 2.7 L, Globulin 3.2, Albumin/Globulin Ratio 0.8 L 09/20/19 20:18: POC Glucose 284 H 09/21/19 05:21: POC Glucose 350 H* 09/21/19 05:33: WBC 12.1 H, RBC 3.43 L, Hgb 10.1 L, Hct 35.1 L, MCV 102.4 H, MCH 29.5, MCHC 28.8 L, RDW 14.2, Plt Count 349, MPV 8.1, Neut % (Auto) 91.5 H, Lymph % (Auto) 3.9 L, [place] % (Auto) 3.9, Eos % (Auto) 0.1, Baso % (Auto) 0.6, Neut # (Auto) 11.1 H, Lymph # (Auto) 0.5 L, [place] # (Auto) 0.5, Eos # (Auto) 0.0, Baso # (Auto) 0.1 09/21/19 05:33: Sodium 150 H, Potassium 4.3, Chloride 115 H, Carbon Dioxide 32 H , Anion Gap 7.3, BUN 39 H, Creatinine 0.90, Estimated Creat Clear 82, Estimated GFR 62, Est GFR ( Amer) 75, Glucose 357 H, Calcium 8.7, Phosphorus 3.1, Magnesium 2.5 H, Total Bilirubin 0.3, AST 29, ALT 45, Alkaline Phosphatase 84, Total Protein 5.9 L, Albumin 2.9 L, Globulin 3.0, Albumin/Globulin Ratio 1.0 L 09/21/19 07:43: Specimen Source L radial, O2 % 45, ABG pH 7.36, ABG pCO2 56.9 H, ABG pO2 64.5 L, ABG HCO3 31.4 H, ABG Total CO2 33.1 H, ABG O2 Saturation 91, ABG Base Excess 5.9 H, Eliezer Test Acceptable, Vent Rate Bipap 16/01 I & O for Last 24 hours: Intake & Output 09/18/19 09/19/19 09/20/19 09/21/19 11:59 11:59 11:59 11:59 Intake Total 3568 / 3568 2920 / 3100 5511 / 5918 5600 / 5600 Output Total 3500 / 3500 2657 / 2832 3630 / 3755 3274 / 3274 Balance 68 / 68 263 / 268 1881 / 2163 2326 / 2326 Weight 205 lb 0.478 oz 205 lb 0.126 oz 214 lb 2 oz 220 lb 1 oz Microbiology Reports for the Last 24 Hours: Microbiology 09/17/19 20:00 Sputum - Endotracheal Tube Aspirate Gram Stain - Final 09/17/19 20:00 Sputum - Endotracheal Tube Aspirate Sputum Culture - Final Narrative: Will open her eyes, move her hands in response to questions, will give a couple of head shakes in regards to yes or no. Denies pain. On BiPAP. Vital signs reviewed. Lungs have poor air movement. Heart rate regular. Abdomen soft, distal extremities perfused. No significant edema. Bates catheter draining clear yellow urine. Assessment and Plan (1) Generalized anxiety disorder Current visit: Yes Status: Acute Category: Medical Code(s): F41.1 - Generalized anxiety disorder (2) Diabetes mellitus type 2, noninsulin dependent Current visit: Yes Status: Acute Category: Medical Code(s): E11.9 - Type 2 diabetes mellitus without complications (3) Obesity (BMI 30.0-34.9) Current visit: Yes Status: Acute Category: Medical Code(s): E66.9 - Obesity, unspecified (4) Community acquired pneumonia Current visit: Yes Status: Acute Qualifiers: Laterality: right Lung location: unspecified part of lung Qualified Code(s): J18.9 - Pneumonia, unspecified organism Category: Medical Code(s): J18.9 - Pneumonia, unspecified organism (5) Respiratory failure Current visit: Yes Status: Acute Qualifiers: Chronicity: acute on chronic Respiratory failure complication: hypoxia and hypercapnia Qualified Code(s): J96.21 - Acute and chronic respiratory failure with hypoxia; J96.22 - Acute and chronic respiratory failure with hypercapnia Category: Medical Code(s): J96.90 - Respiratory failure, unspecified, unspecified whether with hypoxia or hypercapnia (6) Severe sepsis Current visit: Yes Status: Acute Category: Medical Code(s): A41.9 - Sepsis, unspecified organism; R65.20 - Severe sepsis without septic shock (7) Acute kidney injury Current visit: Yes Status: Acute Category: Medical Code(s): N17.9 - Acute kidney failure, unspecified (8) Acute respiratory distress syndrome (ARDS) Current visit: Yes Status: Acute Category: Medical Code(s): J80 - Acute respiratory distress syndrome (9) Delirium, acute Current visit: Yes Status: Acute Category: Medical Code(s): R41.0 - Disorientation, unspecified (10) COPD (chronic obstructive pulmonary disease) Current visit: Yes Status: Chronic Category: Medical Code(s): J44.9 - Chronic obstructive pulmonary disease, unspecified (11) Hypertension Current visit: Yes Status: Chronic Qualifiers: Hypertension type: essential hypertension Qualified Code(s): I10 - Essential (primary) hypertension Category: Medical Code(s): I10 - Essential (primary) hypertension - Assessment and plan all Dx Assessment and Plan for all problems:: Overall acute respiratory failure has stabilized. Blood gas this morning is also very acceptable. Plan will be to cautiously wean BiPAP and try to reduce her FiO2 with possible increase in pressure support. Respiratory therapy is considering this. Had a long conversation with patient's daughter about ongoing treatment options. Concern is that her underlying chronic respiratory failure/stage IV COPD will really preclude meaningful respiratory function recovery over the next several weeks. If patient requires reintubation would recommend transfer to tertiary care center. Patient in the past is indicated her desire not to be intubated but given her inability to express decision-making at this point her has wished aggressive medical care. Daughter will talk to patient's today about these issues. Continue supportive care, antibiotics, and weaning BiPAP if able through the day today.
[2019-09-21 11:38] LABS: Lymphocytes % 7 % (10-50); Monocytes % 12 % (2-9); Neutrophils % 80 % (42-76); Total Cells Counted 100
[2019-09-21 11:39] LABS: Hypochromasia 1+; Macrocytosis 1+
[2019-09-22 06:43] LABS: Basophils % 0.5 % (0.1-2.0); Hematocrit 35.8 % (37.0-47.0); Hemoglobin 10.4 g/dL (12.2-16.2); Lymphocytes # 0.4 K/mm3 (0.7-4.5); Lymphocytes % 4.9 % (10-50); Mean Corpuscular Volume 102.6 fl (81-99); Mean Platelet Volume 8.5 fl (7.4-10.4); Monocytes # 0.4 K/mm3 (0.1-1.0); Monocytes % 4.7 % (1.7-9.3); Neutrophils # 7.5 K/mm3 (1.8-7.8); Neutrophils % 89.9 % (37.0-80.0); Platelet Count 352 K/mm3 (142-424); Red Blood Count 3.49 M/mm3 (4.20-5.40); Red Cell Distribution Width 14.4 % (11.5-17.5); White Blood Count 8.4 K/mm3 (4.8-10.8)
[2019-09-22 06:52] LABS: Anion Gap 5.5 mEq/L (5-15); Calcium 8.4 mg/dl (8.4-10.2)
--- NOTE | 2019-09-22 07:40 | Progress Note ---
Internal Medicine - PN: Subj *Date: 09/22/19 *Time: 07:40 Exam Vital signs and Labs for Last 24 Hours: Temp Pulse Resp BP Pulse Ox 100.4 F H 89 16 162/71 H 97 09/22/19 06:00 09/22/19 07:15 09/22/19 06:00 09/22/19 06:00 09/22/19 07:15 Laboratory Results - last 24 hr 09/21/19 05:33: Total Counted 100, Neutrophils % (Manual) 80 H, Band Neutrophils % 1.0, Lymphocytes % (Manual) 7 L, Monocytes % (Manual) 12 H, Platelet Estimate Normal, Hypochromasia 1+, Macrocytosis 1+ 09/21/19 07:43: Specimen Source L radial, O2 % 45, ABG pH 7.36, ABG pCO2 56.9 H, ABG pO2 64.5 L, ABG HCO3 31.4 H, ABG Total CO2 33.1 H, ABG O2 Saturation 91, ABG Base Excess 5.9 H, Eliezer Test Acceptable, Vent Rate Bipap 16/09/21/19 11:16: POC Glucose 353 H* 09/21/19 17:24: POC Glucose 353 H* 09/21/19 20:27: POC Glucose 336 H* 09/22/19 05:21: WBC 8.4 D, RBC 3.49 L, Hgb 10.4 L, Hct 35.8 L, MCV 102.6 H, MCH 29.7, MCHC 29.0 L, RDW 14.4, Plt Count 352, MPV 8.5, Neut % (Auto) 89.9 H, Lymph % (Auto) 4.9 L, [place] % (Auto) 4.7, Eos % (Auto) 0.0 L, Baso % (Auto) 0.5, Neut # (Auto) 7.5, Lymph # (Auto) 0.4 L, [place] # (Auto) 0.4, Eos # (Auto) 0.0, Baso # (Auto) 0.0 09/22/19 05:21: Sodium 153 H*, Potassium 4.5, Chloride 118 H, Carbon Dioxide 34 H, Anion Gap 5.5, BUN 43 H, Creatinine 0.90, Estimated Creat Clear 82, Estimated GFR 62, Est GFR ( Amer) 75, Glucose 387 H, Calcium 8.4 09/22/19 05:44: POC Glucose 356 H* I & O for Last 24 hours: Intake & Output 09/19/19 09/20/19 09/21/19 09/22/19 23:59 23:59 23:59 23:59 Intake Total 4709 / 4709 5808 / 6053 5584 / 5770 1473 / 1473 Output Total 3957 / 3957 2173 / 2303 1988 / 2073 810 / 810 Balance 752 / 752 3635 / 3750 3595 / 3696 663 / 663 Weight 92.99 kg 97.125 kg 99.819 kg 98.997 kg Microbiology Reports for the Last 24 Hours: Microbiology 09/16/19 10:48 Blood Blood Culture - Final NO GROWTH AFTER 5 DAYS 09/16/19 10:48 Blood Blood Culture - Final NO GROWTH AFTER 5 DAYS Assessment and Plan (1) Generalized anxiety disorder Current visit: Yes Status: Acute Category: Medical Code(s): F41.1 - Generalized anxiety disorder (2) Diabetes mellitus type 2, noninsulin dependent Current visit: Yes Status: Acute Category: Medical Code(s): E11.9 - Type 2 diabetes mellitus without complications (3) Obesity (BMI 30.0-34.9) Current visit: Yes Status: Acute Category: Medical Code(s): E66.9 - Obesity, unspecified (4) Community acquired pneumonia Current visit: Yes Status: Acute Qualifiers: Laterality: right Lung location: unspecified part of lung Qualified Code(s): J18.9 - Pneumonia, unspecified organism Category: Medical Code(s): J18.9 - Pneumonia, unspecified organism (5) Respiratory failure Current visit: Yes Status: Acute Qualifiers: Chronicity: acute on chronic Respiratory failure complication: hypoxia and hypercapnia Qualified Code(s): J96.21 - Acute and chronic respiratory failure with hypoxia; J96.22 - Acute and chronic respiratory failure with hypercapnia Category: Medical Code(s): J96.90 - Respiratory failure, unspecified, unspecified whether with hypoxia or hypercapnia (6) Severe sepsis Current visit: Yes Status: Acute Category: Medical Code(s): A41.9 - Sepsis, unspecified organism; R65.20 - Severe sepsis without septic shock (7) Acute kidney injury Current visit: Yes Status: Acute Category: Medical Code(s): N17.9 - Acute kidney failure, unspecified (8) Acute respiratory distress syndrome (ARDS) Current visit: Yes Status: Acute Category: Medical Code(s): J80 - Acute respiratory distress syndrome (9) Delirium, acute Current visit: Yes Status: Acute Category: Medical Code(s): R41.0 - Disorientation, unspecified (10) COPD (chronic obstructive pulmonary disease) Current visit: Yes Status: Chronic Category: Medical Code(s): J44.9 - Chronic obstructive pulmonary disease, unspecified (11) Hypertension Current visit: Yes Status: Chronic Qualifiers: Hypertension type: essential hypertension Qualified Code(s): I10 - Essent ial (primary) hypertension Category: Medical Code(s): I10 - Essential (primary) hypertension The patient's infection will respond to the chosen ABx?: Yes Is the patient receiving the right drug, dose, and route?: Yes Could a more targeted ABx be ordered?: No
--- NOTE | 2019-09-22 09:13 | Pharmacy Consult Notes ---
- Pharmacy Consult Date: 09/22/19 Time: 09:11 Referring provider: DR. PAGE Reason for Consult:: VANCOMYCIN TROUGH LEVEL AND DOSE CHANGE Allergies and ADEs:: Allergies Allergy/AdvReac Type Severity Reaction Status Date / Time cephalexin [CEPHALEXIN] Allergy Severe S-DIFF. Verified 06/20/19 10:45 BREATHING, SWELLING Sulfa (Sulfonamide Allergy Severe S-DIFF. Verified 06/20/19 10:45 Antibiotics) BREATHING, [SULFA (SULFONAMIDE SWELLING ANTIBIOTICS)] acetaminophen [From PERCOCET] Allergy Intermediate I-RASH, Verified 06/20/19 10:45 HEADACHE albuterol [ALBUTEROL] Allergy Intermediate I-RASH; Verified 06/20/19 10:45 HEADACHE amoxicillin [From AUGMENTIN] Allergy Intermediate I-RASH, Verified 06/20/19 10:45 HEADACHE atorvastatin [From LIPITOR] Allergy Intermediate I-ITCHING; Verified 06/20/19 10:45 HAIR FALLS OUT clavulanic acid Allergy Intermediate I-RASH, Verified 06/20/19 10:45 [From AUGMENTIN] HEADACHE codeine Allergy Intermediate I-RASH, Verified 06/20/19 10:45 [From TYLENOL-CODEINE] HEADACHE hydrocodone [From LORTAB] Allergy Intermediate I-ITCHING Verified 06/20/19 10:45 (IN LARGE DOSES PER PT.) morphine [MORPHINE] Allergy Intermediate I-RASH, Verified 06/20/19 10:45 HEADACHE, ASTHMA ATTACKS oxycodone [From PERCOCET] Allergy Intermediate I-RASH, Verified 06/20/19 10:45 HEADACHE tramadol [TRAMADOL] Allergy Intermediate I-RASH, Verified 06/20/19 10:45 HEADACHE ipratropium [IPRATROPIUM] Allergy Mild Unknown Verified 09/16/19 14:43 allergy reaction Home Medications:: Home Medications Medication Instructions Recorded Confirmed Type alprazolam 1 mg tablet 1 mg PO TIDP PRN 12/24/17 09/17/19 History amitriptyline 100 mg tablet 100 mg PO HS 12/24/17 09/16/19 History ammonium lactate 12 % lotion 1 applic TOPICAL BID PRN 12/24/17 09/16/19 History ascorbic acid (vitamin C) 500 mg 100 mg PO DAILY 12/24/17 09/16/19 History capsule bisoprolol 10 1 tab PO DAILY 12/24/17 09/16/19 History mg-hydrochlorothiazide 6.25 mg tablet doxazosin 4 mg tablet 4 mg PO DAILY 12/24/17 09/16/19 History insulin glargine U-300 conc 300 66 unit SUB-Q QHS 12/24/17 09/16/19 History unit/mL (3 mL) subcutaneous pen levothyroxine 88 mcg tablet 88 mcg PO DAILY 12/24/17 09/16/19 History losartan 100 mg tablet 100 mg PO DAILY 12/24/17 09/16/19 History metformin 1,000 mg tablet 1,000 mg PO BID 12/24/17 09/16/19 History simvastatin 40 mg tablet 40 mg PO HS 12/24/17 09/16/19 History triamcinolone acetonide 0.1 % 1 applic DENTAL QHS PRN 12/24/17 09/16/19 History dental paste umeclidinium 62.5 mcg/actuation 1 inh INHALATION Q24H 12/24/17 09/16/19 History blister powder for inhalation Diclofenac Sodium [Diclofenac 75mg 75 mg PO BID 09/16/19 09/16/19 History Tab] Venlafaxine HCl [Venlafaxine HCl 150 mg PO DAILY 09/16/19 09/16/19 History ER] Height: 1.63 m Weight: 98.997 kg Laboratory Results:: Laboratory Results - last 24 hr 09/21/19 05:33: Total Counted 100, Neutrophils % (Manual) 80 H, Band Neutrophils % 1.0, Lymphocytes % (Manual) 7 L, Monocytes % (Manual) 12 H, Platelet Estimate Normal, Hypochromasia 1+, Macrocytosis 1+ 09/21/19 11:16: POC Glucose 353 H* 09/21/19 17:24: POC Glucose 353 H* 09/21/19 20:27: POC Glucose 336 H* 09/22/19 05:21: WBC 8.4 D, RBC 3.49 L, Hgb 10.4 L, Hct 35.8 L, MCV 102.6 H, MCH 29.7, MCHC 29.0 L, RDW 14.4, Plt Count 352, MPV 8.5, Neut % (Auto) 89.9 H, Lymph % (Auto) 4.9 L, [place] % (Auto) 4.7, Eos % (Auto) 0.0 L, Baso % (Auto) 0.5, Neut # (Auto) 7.5, Lymph # (Auto) 0.4 L, [place] # (Auto) 0.4, Eos # (Auto) 0.0, Baso # (Auto) 0.0 09/22/19 05:21: Sodium 153 H*, Potassium 4.5, Chloride 118 H, Carbon Dioxide 34 H, Anion Gap 5.5, BUN 43 H, Creatinine 0.90, Estimated Creat Clear 82, Estimated GFR 62, Est GFR ( Amer) 75, Glucose 387 H, Calcium 8.4 09/22/19 05:44: POC Glucose 356 H* 09/22/19 07:30: Vancomycin Trough 8.7 Medical History: Reports:: Anxiety, Asthma, Chronic Obstructive Pulmonary Disease (COPD), Diabetes Mellitus Type 2, Hyperlipidemia, Hypertension, MRSA Denies:: Cancer, Diabetes Mellitus Type 1, Internal Pacemaker, Seizures Assessment and Plan (1) Generalized anxiety disorder Current visit: Yes Status: Acute Category: Medical Code(s): F41.1 - Generalized anxiety disorder (2) Diabetes mellitus type 2, noninsulin dependent Current visit: Yes Status: Acute Category: Medical Code(s): E11.9 - Type 2 diabetes mellitus without complications (3) Obesity (BMI 30.0-34.9) Current visit: Yes Status: Acute Category: Medical Code(s): E66.9 - Obesity, unspecified (4) Community acquired pneumonia Current visit: Yes Status: Acute Qualifiers: Laterality: right Lung location: unspecified part of lung Qualified Code(s): J18.9 - Pneumonia, unspecified organism Category: Medical Code(s): J18.9 - Pneumonia, unspecified organism (5) Respiratory failure Current visit: Yes Status: Acute Qualifiers: Chronicity: acute on chronic Respiratory failure complication: hypoxia and hypercapnia Qualified Code(s): J96.21 - Acute and chronic respiratory failure with hypoxia; J96.22 - Acute and chronic respiratory failure with hypercapnia Category: Medical Code(s): J96.90 - Respiratory failure, unspecified, unspecified whether with hypoxia or hypercapnia (6) Severe sepsis Current visit: Yes Status: Acute Category: Medical Code(s): A41.9 - Sepsis, unspecified organism; R65.20 - Severe sepsis without septic shock (7) Acute kidney injury Current visit: Yes Status: Acute Category: Medical Code(s): N17.9 - Acute kidney failure, unspecified (8) Acute respiratory distress syndrome (ARDS) Current visit: Yes Status: Acute Category: Medical Code(s): J80 - Acute respiratory distress syndrome (9) Delirium, acute Current visit: Yes Status: Acute Category: Medical Code(s): R41.0 - Disorientation, unspecified (10) COPD (chronic obstructive pulmonary disease) Current visit: Yes Status: Chronic Category: Medical Code(s): J44.9 - Chronic obstructive pulmonary disease, unspecified (11) Hypertension Current visit: Yes Status: Chronic Qualifiers: Hypertension type: essential hypertension Qualified Code(s): I10 - Essential (primary) hypertension Category: Medical Code(s): I10 - Essential (primary) hypertension - Assessment and plan all Dx Assessment and Plan for all problems:: BASED ON PATIENT'S TROUGH LEVEL OF 8.7 MCG/ML, RECOMMEND CHANGING DOSING INTERVAL FROM Q24H TO Q18H WITH VANCOMYCIN 2 GM. PHARMACY WILL FOLLOW DAILY AND ADJUST APPROPRIATE.
--- NOTE | 2019-09-22 09:37 | Progress Note ---
Internal Medicine - PN: Subj *Date: 09/22/19 *Time: 08:45 Interval history: Ms. Swan had a somewhat better night. Denies any nausea or vomiting. Cooperative on exam this morning and interactive with an appropriate manner. Not combative or verbally abusive as she has been the past few days. Labs reviewed this morning, white count improving however sodium still elevated. Denies any chest pain. Does still have a sore mouth. Tolerating nutrition at goal through NG. Increasing free water this morning. Exam Vital signs and Labs for Last 24 Hours: Temp Pulse Resp BP Pulse Ox 98.9 F 89 21 148/65 H 97 09/22/19 07:00 09/22/19 07:15 09/22/19 07:00 09/22/19 07:00 09/22/19 07:15 Laboratory Results - last 24 hr 09/21/19 05:33: Total Counted 100, Neutrophils % (Manual) 80 H, Band Neutrophils % 1.0, Lymphocytes % (Manual) 7 L, Monocytes % (Manual) 12 H, Platelet Estimate Normal, Hypochromasia 1+, Macrocytosis 1+ 09/21/19 11:16: POC Glucose 353 H* 09/21/19 17:24: POC Glucose 353 H* 09/21/19 20:27: POC Glucose 336 H* 09/22/19 05:21: WBC 8.4 D, RBC 3.49 L, Hgb 10.4 L, Hct 35.8 L, MCV 102.6 H, MCH 29.7, MCHC 29.0 L, RDW 14.4, Plt Count 352, MPV 8.5, Neut % (Auto) 89.9 H, Lymph % (Auto) 4.9 L, [place] % (Auto) 4.7, Eos % (Auto) 0.0 L, Baso % (Auto) 0.5, Neut # (Auto) 7.5, Lymph # (Auto) 0.4 L, [place] # (Auto) 0.4, Eos # (Auto) 0.0, Baso # (Auto) 0.0 09/22/19 05:21: Sodium 153 H*, Potassium 4.5, Chloride 118 H, Carbon Dioxide 34 H, Anion Gap 5.5, BUN 43 H, Creatinine 0.90, Estimated Creat Clear 82, Estimated GFR 62, Est GFR ( Amer) 75, Glucose 387 H, Calcium 8.4 09/22/19 05:44: POC Glucose 356 H* 09/22/19 07:30: Vancomycin Trough 8.7 I & O for Last 24 hours: Intake & Output 09/19/19 09/20/19 09/21/19 09/22/19 23:59 23:59 23:59 23:59 Intake Total 4709 / 4709 5808 / 6053 5734 / 5920 171 / 1714 Output Total 3957 / 3957 2173 / 2303 1988 885 / 885 Balance 752 / 752 3635 / 3750 3745 / 3846 829 / 829 Weight 92.99 kg 97.125 kg 99.819 kg 98.997 kg Microbiology Reports for the Last 24 Hours: Microbiology 09/16/19 10:48 Blood Blood Culture - Final NO GROWTH AFTER 5 DAYS 09/16/19 10:48 Blood Blood Culture - Final NO GROWTH AFTER 5 DAYS Narrative: - Constitutional: moderate distress, obese, cooperative - *Routine HEENT Exam Head: Present: normocephalic Eye: Present: EOMI, PERRL ENT: Present: mucous membranes moist, film in mouth due to mouth breathing on BiPAP - *Routine Neck Exam Present: supple. Absent: lymphadenopathy - *Routine Respiratory Exam Present: accessory muscle use, wheezes, crackles Comments: Coarse right-sided crackles with interval improvement best heard in posterior lung field, rhonchi that change with cough, wheeze intervally improved though diffuse in bilateral lung [place] with fair air movement bilaterally, Exam performed on Venti mask 50% FiO2 - *Routine Cardiovascular Exam Present: tachycardia. Absent: murmur - *Routine Abdominal Exam Present: soft, normoactive bowel sounds. Absent: tenderness - *Routine Extremities Exam Present: 2+ edema in UE and LE bilaterally, no cyanosis, clubbing - *Routine Skin Exam Present: warm. Absent: rash - *Routine Neurological Exam alert; Oriented to person and location, attentive on exam. Cooperative. Noncombative, improved over last neuro exam 2 days ago performed by me, speech understandable and coherent. Appears to have improved insight into current condition. - Routine Psychiatric Exam Present: Madeleine improved, not agitated on Ventimask. Assessment and Plan (1) Generalized anxiety disorder Current visit: Yes Status: Acute Category: Medical Code(s): F41.1 - Generalized anxiety disorder (2) Diabetes mellitus type 2, noninsulin dependent Current visit: Yes Status: Acute Category: Medical Code(s): E11.9 - Type 2 diabetes mellitus without complications (3) Obesity (BMI 30.0-34.9) Current visit: Yes Status: Acute Category: Medical Code(s): E66.9 - Obesity, unspecified (4) Community acquired pneumonia Current visit: Yes Status: Acute Qualifiers: Laterality: right Lung location: unspecified part of lung Qualified Code( s): J18.9 - Pneumonia, unspecified organism Category: Medical Code(s): J18.9 - Pneumonia, unspecified organism (5) Respiratory failure Current visit: Yes Status: Acute Qualifiers: Chronicity: acute on chronic Respiratory failure complication: hypoxia and hypercapnia Qualified Code(s): J96.21 - Acute and chronic respiratory failure with hypoxia; J96.22 - Acute and chronic respiratory failure with hypercapnia Category: Medical Code(s): J96.90 - Respiratory failure, unspecified, unspecified whether with hypoxia or hypercapnia (6) Severe sepsis Current visit: Yes Status: Acute Category: Medical Code(s): A41.9 - Sepsis, unspecified organism; R65.20 - Severe sepsis without septic shock (7) Acute kidney injury Current visit: Yes Status: Acute Category: Medical Code(s): N17.9 - Acute kidney failure, unspecified (8) Acute respiratory distress syndrome (ARDS) Current visit: Yes Status: Acute Category: Medical Code(s): J80 - Acute respiratory distress syndrome (9) Delirium, acute Current visit: Yes Status: Acute Category: Medical Code(s): R41.0 - Disorientation, unspecified (10) COPD (chronic obstructive pulmonary disease) Current visit: Yes Status: Chronic Category: Medical Code(s): J44.9 - Chronic obstructive pulmonary disease, unspecified (11) Hypertension Current visit: Yes Status: Chronic Qualifiers: Hypertension type: essential hypertension Qualified Code(s): I10 - Essential (primary) hypertension Category: Medical Code(s): I10 - Essential (primary) hypertension - Assessment and plan all Dx Assessment and Plan for all problems:: Ms. Swan is a critically ill 69-year-old female with acute on chronic hypoxemic respiratory failure due to pneumonia throughout right lung, progressing left sided pneumonia, resolved BREANNA, and improving delirium. Currently using BiPAP while sleeping with transition to Ventimask while awake. Exam today shows slight improved progress in mentation and respiratory needs compared to previous exam. Still in respiratory distress and still remains clinically tenuous. Family wishes to continue to pursue aggressive measures even if that necessitates reintubation. Discussed that reintubation would necessitate transfer to tertiary care center with block operator services. They request [facility] if possible, pending worsening status and potential ventilator needs. Remainder of plan below Resp: - continue BiPAP when asleep, and NC/Venti O2 when awake as tolerated - Goal Sats >92% awake; >88% asleep. - Nebs scheduled and PRN, aggressive pulm. toilet - continue steroids and antibiotics for right-sided pneumonia and ARDS. -Levaquin and vancomycin -If no improvement tomorrow, consider repeat chest x-ray Neuro -less delirium today. Appears more alert and oriented. We will continue to reorient, established a night routine with opening windows and turning on lights, recommended nursing asked family to leave at a reasonable hour between 9 and 10 in the evening to allow patient to get some rest. Caution with restraints. Diabetes - Sliding scale insulin with increase in basal insulin glargine on tonight's dose to 60 units. Fingersticks every 6 hours - Blood sugar increasing since initiation of tube feeds Hypernatremia -Still elevated today. Increase free water. Stop IV fluids as she is getting significantly volume overloaded. Renal -Resolved BREANNA -Caution with nephrotoxins -BUN elevated however, will increase free water and assess for improvement this afternoon HTN -Increased dosage of carvedilol, discontinue nicardipine drip today. -Continue irbesartan today, pending response to increasing carvedilol inability to get off nicardipine drip, will consider adjusting dose -Goal blood pressure less than 140 systolic. Nutrition/Fluids - NG placed, tolerating goal tube feeds. -Nutrition following along, appreciate recommendations. -Discontinue IV fluids due to worsening edema. -We will consider diuresis tomorrow if remains edematous with improved blood pressure Continues to require ICU level management. Patient's condition critical and tenuous, prognosis poor - Full code - Bates catheter, strict ins and outs - Plov - Protonix daily - PT consult placed today Critical CARE time: 30 minutes the high probability of a clinically significant, sudden or life threatening deterioration of required my full and direct attention, intervention and personal management. The time I documented below is in addition to time spent performing reported procedures but includes the following listed in this critical care notation. Critical care provided including management of noninvasive respiratory support, evaluation of electrolytes and organ function, adjustment of IV and oral medications, and counseling with family on critical status of patient with continued need for intensive care. Discussion of plans and goals of care with decision by family to increase/escalate respiratory support if the need arises. Family wishes to reintubate if it is necessary based on worsening respiratory status and clinical decompensation. Reviewed labs, fluid needs, continued organ dysfunction assessed and addressed.
[2019-09-22 12:09] LABS: Eosinophils % 1 % (0-3); Lymphocytes % 6 % (10-50); Macrocytosis 1+; Monocytes % 11 % (2-9); Neutrophils % 82 % (42-76); Total Cells Counted 100
[2019-09-22 12:10] LABS: Hypochromasia 1+
[2019-09-22 16:43] LABS: Calcium 8.2 mg/dl (8.4-10.2)
[2019-09-23 06:16] LABS: Basophils % 0.2 % (0.1-2.0); Eosinophils % 0.1 % (0.1-12.0); Hematocrit 36.9 % (37.0-47.0); Hemoglobin 10.8 g/dL (12.2-16.2); Lymphocytes # 0.5 K/mm3 (0.7-4.5); Mean Corpuscular HGB Conc 29.3 g/dL (31.8-35.4); Mean Corpuscular Volume 101.4 fl (81-99); Mean Platelet Volume 8.9 fl (7.4-10.4); Monocytes # 0.4 K/mm3 (0.1-1.0); Monocytes % 4.5 % (1.7-9.3); Neutrophils # 8.5 K/mm3 (1.8-7.8); Neutrophils % 90.2 % (37.0-80.0); Platelet Count 325 K/mm3 (142-424); Red Blood Count 3.64 M/mm3 (4.20-5.40); Red Cell Distribution Width 14.2 % (11.5-17.5); White Blood Count 9.4 K/mm3 (4.8-10.8)
[2019-09-23 06:23] LABS: Anion Gap 1.7 mEq/L (5-15); Calcium 8.5 mg/dl (8.4-10.2)
--- NOTE | 2019-09-23 08:59 | Progress Note ---
Internal Medicine - PN: Subj *Date: 09/23/19 *Time: 08:30 Interval history: Ms. Swan is remained stable overnight. Afebrile. Improved blood pressure control. Continues to be hyperglycemic this morning even with increased basal insulin. Tolerating tube feeds. Still has not had a bowel movement. Urine output adequate. Reviewed labs this morning, sodium slightly up one-point however not significantly. Kidney function stable. Worked with physical therapy yesterday, sat up at bedside. Fatigues very quickly but is cooperative, alert and oriented to her condition, wanting to work with providers to get better. Extensive discussion at bedside this morning with daughter, son, patie nt about her condition and goals moving forward. Tolerating BiPAP while sleeping and transition of NC this morning with stable albeit moderate respiratory distress. Discussed the likelihood of patient needing long-term skilled rehab in order to get better, stronger, back home and independent. She stated understanding. Discussed given her improved mentation and willingness to work with mobility, starting to use bedpan or bedside commode and discontinuing Bates catheter today. Patient agreeable to this. Denies chest pain, nausea, vomiting, diarrhea. Complains of constipation, stable shortness of breath. No confusion today. No bleeding. Very weak Exam Vital signs and Labs for Last 24 Hours: Temp Pulse Resp BP Pulse Ox 98.2 F 80 24 163/67 H 95 09/23/19 08:00 09/23/19 08:00 09/23/19 08:00 09/23/19 08:00 09/23/19 08:50 Laboratory Results - last 24 hr 09/22/19 05:21: Total Counted 100, Neutrophils % (Manual) 82 H, Lymphocytes % (Manual) 6 L, Monocytes % (Manual) 11 H, Eosinophils % (Manual) 1, Platelet Estimate Normal, Hypochromasia 1+, Macrocytosis 1+ 09/22/19 07:30: Vancomycin Trough 8.7 09/22/19 11:45: POC Glucose 383 H* 09/22/19 16:18: Sodium 150 H, Potassium 5.0, Chloride 118 H, Carbon Dioxide 33 H , Anion Gap 4.0 L, BUN 46 H, Creatinine 0.90, Estimated Creat Clear 82, Estimated GFR 62, Est GFR ( Amer) 75, Glucose 393 H, Calcium 8.2 L, Magnesium 2.7 H 09/22/19 17:38: POC Glucose 367 H* 09/22/19 20:55: POC Glucose 310 H* 09/23/19 05:21: WBC 9.4, RBC 3.64 L, Hgb 10.8 L, Hct 36.9 L, MCV 101.4 H, MCH 29.7, MCHC 29.3 L, RDW 14.2, Plt Count 325, MPV 8.9, Neut % (Auto) 90.2 H, Lymph % (Auto) 5.0 L, [place] % (Auto) 4.5, Eos % (Auto) 0.1, Baso % (Auto) 0.2, Neut # (Auto) 8.5 H, Lymph # (Auto) 0.5 L, [place] # (Auto) 0.4, Eos # (Auto) 0.0, Baso # (Auto) 0.0 09/23/19 05:21: Sodium 151 H*, Potassium 4.7, Chloride 117 H, Carbon Dioxide 37 H, Anion Gap 1.7 L, BUN 45 H, Creatinine 0.90, Estimated Creat Clear 82, Estimated GFR 62, Est GFR ( Amer) 75, Glucose 367 H, Calcium 8.5, Magne sium 2.9 H 09/23/19 05:29: POC Glucose 326 H* I & O for Last 24 hours: Intake & Output 09/20/19 09/21/19 09/22/19 09/23/19 23:59 23:59 23:59 23:59 Intake Total 5808 / 6053 5734 / 5920 3949 / 3949 1168 / 1168 Output Total 2173 / 2303 1988 / 2073 2045 / 3420 2074 / 2074 Balance 3635 / 3750 3745 / 3846 1904 / 529 -907 / -907 Weight 97.125 kg 99.819 kg 98.997 kg 99.422 kg Narrative: - Constitutional: mild distress, obese, cooperative - *Routine HEENT Exam Head: Present: normocephalic Eye: Present: EOMI, PERRL ENT: Present: mucous membranes moist, NG in nose, no bleeding or breakdown - *Routine Neck Exam Present: supple. Absent: lymphadenopathy - *Routine Respiratory Exam Present: Christy decrease in accessory muscle use, wheezes, crackles; Coarse right-sided crackles with interval improvement best heard in posterior lung field, rhonchi that change with cough, wheeze intervally improved though diffuse in bilateral lung [place] with fair air movement bilaterally, Exam performed on Venti mask 40% FiO2 - *Routine Cardiovascular Exam Present: regular rate and rhythm, no murmurs rubs or gallops - *Routine Abdominal Exam Present: soft, normoactive bowel sounds. Absent: tenderness - *Routine Extremities Exam Present: 2+ edema in UE and LE bilaterally, no cyanosis, clubbing - *Routine Skin Exam Present: warm. Absent: rash - *Routine Neurological Exam alert; Oriented to person and location, attentive on exam. Cooperative. Noncombative, improved over last neuro exam 2 days ago performed by me, speech understandable and coherent. Appears to have improved insight into current co ndition. - Routine Psychiatric Exam Present: improved, not combative/uncooperative, not agitated on Ventimask. Assessment and Plan (1) Generalized anxiety disorder Current visit: Yes Status: Acute Category: Medical Code(s): F41.1 - Generalized anxiety disorder (2) Diabetes mellitus type 2, noninsulin dependent Current visit: Yes Status: Acute Category: Medical Code(s): E11.9 - Type 2 diabetes mellitus without complications (3) Obesity (BMI 30.0-34.9) Current visit: Yes Status: Acute Category: Medical Code(s): E66.9 - Obesity, unspecified (4) Community acquired pneumonia Current visit: Yes Status: Acute Qualifiers: Laterality: right Lung location: unspecified part of lung Qualified Code(s): J18.9 - Pneumonia, unspecified organism Category: Medical Code(s): J18.9 - Pneumonia, unspecified organism (5) Respiratory failure Current visit: Yes Status: Acute Qualifiers: Chronicity: acute on chronic Respiratory failure complication: hypoxia and hypercapnia Qualified Code(s): J96.21 - Acute and chronic respiratory failure with hypoxia; J96.22 - Acute and chronic respiratory failure with hypercapnia Category: Medical Code(s): J96.90 - Respiratory failure, unspecified, unspecified whether with hypoxia or hypercapnia (6) Severe sepsis Current visit: Yes Status: Acute Category: Medical Code(s): A41.9 - Sepsis, unspecified organism; R65.20 - Severe sepsis without septic shock (7) Acute kidney injury Current visit: Yes Status: Acute Category: Medical Code(s): N17.9 - Acute kidney failure, unspecified (8) Acute respiratory distress syndrome (ARDS) Current visit: Yes Status: Acute Category: Medical Code(s): J80 - Acute respiratory distress syndrome (9) Delirium, acute Current visit: Yes Status: Acute Category: Medical Code(s): R41.0 - Disorientation, unspecified (10) COPD (chronic obstructive pulmonary disease) Current visit: Yes Status: Chronic Category: Medical Code(s): J44.9 - Chronic obstructive pulmonary disease, unspecified (11) Hypertension Current visit: Yes Status: Chronic Qualifiers: Hypertension type: essential hypertension Qualified Code(s): I10 - Essential (primary) hypertension Category: Medical Code(s): I10 - Essential (primary) hypertension - Assessment and plan all Dx Assessment and Plan for all problems:: Ms. Swan is a critically ill 69-year-old female with acute on chronic hypoxemic respiratory failure due to pneumonia throughout right lung, progressing left sided pneumonia, resolved BREANNA, and improving delirium. Currently using BiPAP while sleeping with transition to Ventimask while awake. Exam today shows continued interval improved progress in mentation and respiratory needs compared to previous exam. Still in respiratory distress and still remains clinically tenuous. Plan as follows: Resp: - continue BiPAP when asleep, will wean Ventimask today to nasal cannula, goal of 4 to 6 L while awake. - Goal Sats >92% awake; >88% asleep. - Nebs scheduled and PRN, aggressive pulm. toilet - continue steroids and antibiotics for right-sided pneumonia and ARDS. - Levaquin and vancomycin; plan for total of 14 days of antibiotics - If no improvement/worsening clinical condition tomorrow, consider repeat chest x-ray Neuro -no signs of delirium on exam today. Oriented to person place, still disoriented to time however redirects easily. -Continue with day night routine, reorienting regularly - opening windows and turning on lights, recommended nursing asked family to leave at a reasonable hour between 9 and 10 in the evening to allow patient to get some rest. Caution with restraints. -Continue to work with physical therapy Diabetes - Sliding scale insulin with increase in basal insulin glargine on tonight's dose to 70 units. Fingersticks every 6 hours - Blood sugar increasing since initiation of tube feeds Hypernatremia -Still elevated today. Increase free water -Nutrition consult, transition to p.o. intake if possible, recommend p.o. water as desired to help correct free water imbalance Renal -Resolved BREANNA -Caution with nephrotoxins -BUN elevated however, will increase free water and assess for improvement this afternoon -Diuresis today to assist with edema, will monitor closely kidney function during this process HTN -Tolerating carvedilol and irbesartan per tube -Goal blood pressure less than 140 systolic. Nutrition/Fluids - NG in place, tolerating goal tube feeds. -Nutrition following along, appreciate recommendations. -Speech eval to assess for swallowing. Advance diet per their recommendations, see their documentation for full Anthony. -If tolerates good oral intake for 24 hours will discontinue tube feeds and monitor for continued goal intake. Plan for NG to be removed in the coming days Clinical improvement, transition to stepdown level of care today. Patient's condition remains serious, tenuous, prognosis fair - Full code - Bates catheter DC'd today, strict ins and outs - Plov - Protonix daily - PT consulted -Discharge recommendations to retirement for prolonged rehab before going home Discharge criteria: -P.o. nutrition and medications -Stable oxygen requirement -Off of IV antibiotics -Acceptance/pre-CERT by rehab facility case management following along, appreciate recs.
[2019-09-23 10:21] LABS: Lymphocytes % 6 % (10-50); Macrocytosis 1+; Monocytes % 7 % (2-9); Neutrophils % 87 % (42-76); Total Cells Counted 100
[2019-09-23 10:22] LABS: Hypochromasia 1+
[2019-09-23 18:49] LABS: Alanine Aminotransferase 26 U/L (12-78); Albumin Level 2.5 g/dl (3.5-5.0); Alkaline Phosphatase 70 U/L (38-126); Anion Gap 2.6 mEq/L (5-15); Aspartate Amino Transferase 18 U/L (14-36); Blood Urea Nitrogen 44 mg/dl (7-17); Calcium 8.3 mg/dl (8.4-10.2); Carbon Dioxide 36 mmol/L (22.0-30.0); Chloride 110 mmol/L (98-107); Globulin 2.6 g/dL (1.3-3.2); Sodium 144 mmol/L (136-145); Total Protein,Serum 5.1 g/dl (6.3-8.2)
[2019-09-23 19:28] LABS: Bilirubin,Total < 0.1 mg/dl (0.2-1.3)
[2019-09-23 19:29] LABS: Glucose 401 mg/dl (74-100)
[2019-09-24 05:41] LABS: Basophils % 0.3 % (0.1-2.0); Eosinophils % 0.3 % (0.1-12.0); Hematocrit 36.9 % (37.0-47.0); Lymphocytes # 0.4 K/mm3 (0.7-4.5); Lymphocytes % 4.2 % (10-50); Mean Corpuscular HGB Conc 29.7 g/dL (31.8-35.4); Mean Corpuscular Volume 99.6 fl (81-99); Mean Platelet Volume 8.7 fl (7.4-10.4); Monocytes # 0.3 K/mm3 (0.1-1.0); Monocytes % 2.7 % (1.7-9.3); Neutrophils # 8.8 K/mm3 (1.8-7.8); Neutrophils % 92.4 % (37.0-80.0); Platelet Count 283 K/mm3 (142-424); Red Blood Count 3.71 M/mm3 (4.20-5.40); Red Cell Distribution Width 13.7 % (11.5-17.5); White Blood Count 9.6 K/mm3 (4.8-10.8)
[2019-09-24 05:51] LABS: Hypochromasia 2+; Lymphocytes % 8 % (10-50); Macrocytosis 1+; Neutrophils % 87 % (42-76); Total Cells Counted 100
[2019-09-24 05:52] LABS: Rouleaux 1+
[2019-09-24 05:55] LABS: Anion Gap 1.9 mEq/L (5-15); Calcium 8.4 mg/dl (8.4-10.2)
--- NOTE | 2019-09-24 08:17 | Progress Note ---
Internal Medicine - PN: Subj *Date: 09/24/19 *Time: 08:16 Interval history: Patient continued to improve over the day yesterday and through the evening last night. Has been able to be maintained on nasal cannula oxygen with improving alertness levels and has actually eaten some breakfast this morning. Tube feeds continue but are about to be stopped after 24-hour infusion. She has no complaints of pain and feels much better. Exam Vital signs and Labs for Last 24 Hours: Temp Pulse Resp BP Pulse Ox 97.8 F 74 24 164/68 H 89 L 09/24/19 04:00 09/24/19 06:15 09/24/19 06:00 09/24/19 06:00 09/24/19 06:15 Laboratory Results - last 24 hr 09/21/19 05:33: Prealbumin 18 09/23/19 05:21: Total Counted 100, Neutrophils % (Manual) 87 H, Lymphocytes % (Manual) 6 L, Monocytes % (Manual) 7, Platelet Estimate Normal, Hypochromasia 1+, Macrocytosis 1+ 09/23/19 11:26: POC Glucose 340 H* 09/23/19 16:11: POC Glucose 339 H* 09/23/19 18:13: Sodium 144, Potassium 4.6, Chloride 110 H, Carbon Dioxide 36 H, Anion Gap 2.6 L, BUN 44 H, Creatinine 0.80, Estimated Creat Clear 82, Estimated GFR 71, Est GFR ( Amer) 86, Glucose 401 H*, Calcium 8.3 L, Total Bilirubin < 0.1 L, AST 18 D, ALT 26 D, Alkaline Phosphatase 70, Total Protein 5.1 L, Albumin 2.5 L, Globulin 2.6, Albumin/Globulin Ratio 1.0 L 09/23/19 20:13: POC Glucose 358 H* 09/24/19 05:30: WBC 9.6, RBC 3.71 L, Hgb 11.0 L, Hct 36.9 L, MCV 99.6 H, MCH 29.6, MCHC 29.7 L, RDW 13.7, Plt Count 283, MPV 8.7, Neut % (Auto) 92.4 H, Lymph % (Auto) 4.2 L, [place] % (Auto) 2.7, Eos % (Auto) 0.3, Baso % (Auto) 0.3, Neut # (Auto) 8.8 H, Lymph # (Auto) 0.4 L, [place] # (Auto) 0.3, Eos # (Auto) 0.0, Baso # (Auto) 0.0, Total Counted 100, Neutrophils % (Manual) 87 H, Band Neutrophils % 5.0, Lymphocytes % (Manual) 8 L, Platelet Estimate Normal, Hypochromasia 2+, Macrocytosis 1+, Rouleaux 1+ 09/24/19 05:30: Sodium 142, Potassium 4.9, Chloride 107, Carbon Dioxide 38 H, Anion Gap 1.9 L, BUN 37 H, Creatinine 0.80, Estimated Creat Clear 83, Estimated GFR 71, Est GFR ( Amer) 86, Glucose 349 H, Calcium 8.4, Magnesium 2.6 H D I & O for Last 24 hours: Intake & Output 09/21/19 09/22/19 09/23/19 09/24/19 11:59 11:59 11:59 11:59 Intake Total 6248 / 6358 5747 / 5897 2537 / 2609 2673 / 2673 Output Total 1779 / 1799 2583 / 2598 3665 / 3665 2750 / 2750 Balance 4469 / 4559 3164 / 3299 -1128 / -1056 -77 / -77 Weight 220 lb 1 oz 218 lb 4 oz 219 lb 3 oz 222 lb 3 oz Narrative: Patient is alert. Pleasant. Oriented x3. Nasal cannula in good position, NG tube also in good position. Lungs have good air movement, much better. Residual rhonchi in both bases. Heart rate regular. Abdomen soft. Extremities less edematous than yesterday. Excellent urine output noted. Assessment and Plan (1) Generalized anxiety disorder Current visit: Yes Status: Acute Category: Medical Code(s): F41.1 - Generalized anxiety disorder (2) Diabetes mellitus type 2, noninsulin dependent Current visit: Yes Status: Acute Category: Medical Code(s): E11.9 - Type 2 diabetes mellitus without complications (3) Obesity (BMI 30.0-34.9) Current visit: Yes Status: Acute Category: Medical Code(s): E66.9 - Obesity, unspecified (4) Community acquired pneumonia Current visit: Yes Status: Acute Qualifiers: Laterality: right Lung location: unspecified part of lung Qualified Code(s): J18.9 - Pneumonia, unspecified organism Category: Medical Code(s): J18.9 - Pneumonia, unspecified organism (5) Respiratory failure Current visit: Yes Status: Acute Qualifiers: Chronicity: acute on chronic Respiratory failure complication: hypoxia and hypercapnia Qualified Code(s): J96.21 - Acute and chronic respiratory failure with hypoxia; J96.22 - Acute and chronic respiratory failure with hypercapnia Category: Medical Code(s): J96.90 - Respiratory failure, unspecified, unspecified whether with hypoxia or hypercapnia (6) Severe sepsis Current visit: Yes Status: Acute Category: Medical Code(s): A41.9 - Sepsis, unspecified organism; R65.20 - Severe sepsis without septic shock (7) Acute kidney injury Current visit: Yes Status: Acute Category: Medical Code(s): N17.9 - Acute kidney failure, unspecified (8) Acute respiratory distress syndrome (ARDS) Current visit: Yes Status: Acute Category: Medical Code(s): J80 - Acute respiratory distress syndrome (9) Delirium, acute Current visit: Yes Status: Acute Category: Medical Code(s): R41.0 - Disorientation, unspecified (10) COPD (chronic obstructive pulmonary disease) Current visit: Yes Status: Chronic Category: Medical Code(s): J44.9 - Chronic obstructive pulmonary disease, unspecified (11) Hypertension Current visit: Yes Status: Chronic Qualifiers: Hypertension type: essential hypertension Qualified Code(s): I10 - Essential (primary) hypertension Category: Medical Code(s): I10 - Essential (primary) hypertension - Assessment and plan all Dx Assessment and Plan for all problems:: Overall patient is making a very nice improvement from ARDS with superimposed severe sepsis. Lasix yesterday has improved kidney function with creatinine result below 2 this morning. Good urine output. Hold Lasix today. Transition intravenous Solu-Medrol to p.o. prednisone. We will finish up antibiotic course over the next couple of days and will work with care management about transitioning to skilled care facility for rehabilitation.
[2019-09-25 07:21] LABS: Basophils % 0.2 % (0.1-2.0); Eosinophils # 0.1 K/mm3 (0.0-0.4); Eosinophils % 0.4 % (0.1-12.0); Hematocrit 37.6 % (37.0-47.0); Hemoglobin 11.3 g/dL (12.2-16.2); Lymphocytes # 0.7 K/mm3 (0.7-4.5); Lymphocytes % 5.2 % (10-50); Mean Corpuscular HGB Conc 30.2 g/dL (31.8-35.4); Mean Corpuscular Volume 95.5 fl (81-99); Mean Platelet Volume 8.5 fl (7.4-10.4); Monocytes # 0.6 K/mm3 (0.1-1.0); Monocytes % 4.2 % (1.7-9.3); Neutrophils # 11.9 K/mm3 (1.8-7.8); Platelet Count 267 K/mm3 (142-424); Red Blood Count 3.93 M/mm3 (4.20-5.40); Red Cell Distribution Width 13.5 % (11.5-17.5); White Blood Count 13.2 K/mm3 (4.8-10.8)
[2019-09-25 07:53] LABS: Calcium 8.6 mg/dl (8.4-10.2)
[2019-09-25 07:59] LABS: Anion Gap 4.6 mEq/L (5-15)
[2019-09-25 08:08] LABS: Hypochromasia 1+; Lymphocytes % 10 % (10-50); Monocytes % 5 % (2-9); Neutrophils % 85 % (42-76); Stomatocytes 1+; Total Cells Counted 100
--- NOTE | 2019-09-25 08:31 | Pharmacy Consult Notes ---
- Pharmacy Consult Date: 09/25/19 Time: 08:29 Referring provider: DR. PAGE Reason for Consult:: VANCOMYCIN TROUGH LEVEL Allergies and ADEs:: Allergies Allergy/AdvReac Type Severity Reaction Status Date / Time cephalexin [CEPHALEXIN] Allergy Severe S-DIFF. Verified 06/20/19 10:45 BREATHING, SWELLING Sulfa (Sulfonamide Allergy Severe S-DIFF. Verified 06/20/19 10:45 Antibiotics) BREATHING, [SULFA (SULFONAMIDE SWELLING ANTIBIOTICS)] acetaminophen [From PERCOCET] Allergy Intermediate I-RASH, Verified 06/20/19 10:45 HEADACHE albuterol [ALBUTEROL] Allergy Intermediate I-RASH; Verified 06/20/19 10:45 HEADACHE amoxicillin [From AUGMENTIN] Allergy Intermediate I-RASH, Verified 06/20/19 10:45 HEADACHE atorvastatin [From LIPITOR] Allergy Intermediate I-ITCHING; Verified 06/20/19 10:45 HAIR FALLS OUT clavulanic acid Allergy Intermediate I-RASH, Verified 06/20/19 10:45 [From AUGMENTIN] HEADACHE codeine Allergy Intermediate I-RASH, Verified 06/20/19 10:45 [From TYLENOL-CODEINE] HEADACHE hydrocodone [From LORTAB] Allergy Intermediate I-ITCHING Verified 06/20/19 10:45 (IN LARGE DOSES PER PT.) morphine [MORPHINE] Allergy Intermediate I-RASH, Verified 06/20/19 10:45 HEADACHE, ASTHMA ATTACKS oxycodone [From PERCOCET] Allergy Intermediate I-RASH, Verified 06/20/19 10:45 HEADACHE tramadol [TRAMADOL] Allergy Intermediate I-RASH, Verified 06/20/19 10:45 HEADACHE ipratropium [IPRATROPIUM] Allergy Mild Unknown Verified 09/16/19 14:43 allergy reaction Home Medications:: Home Medications Medication Instructions Recorded Confirmed Type alprazolam 1 mg tablet 1 mg PO TIDP PRN 12/24/17 09/17/19 History amitriptyline 100 mg tablet 100 mg PO HS 12/24/17 09/16/19 History ammonium lactate 12 % lotion 1 applic TOPICAL BID PRN 12/24/17 09/16/19 History ascorbic acid (vitamin C) 500 mg 100 mg PO DAILY 12/24/17 09/16/19 History capsule bisoprolol 10 1 tab PO DAILY 12/24/17 09/16/19 History mg-hydrochlorothiazide 6.25 mg tablet doxazosin 4 mg tablet 4 mg PO DAILY 12/24/17 09/16/19 History insulin glargine U-300 conc 300 66 unit SUB-Q QHS 12/24/17 09/16/19 History unit/mL (3 mL) subcutaneous pen levothyroxine 88 mcg tablet 88 mcg PO DAILY 12/24/17 09/16/19 History losartan 100 mg tablet 100 mg PO DAILY 12/24/17 09/16/19 History metformin 1,000 mg tablet 1,000 mg PO BID 12/24/17 09/16/19 History simvastatin 40 mg tablet 40 mg PO HS 12/24/17 09/16/19 History triamcinolone acetonide 0.1 % 1 applic DENTAL QHS PRN 12/24/17 09/16/19 History dental paste umeclidinium 62.5 mcg/actuation 1 inh INHALATION Q24H 12/24/17 09/16/19 History blister powder for inhalation Diclofenac Sodium [Diclofenac 75mg 75 mg PO BID 09/16/19 09/16/19 History Tab] Venlafaxine HCl [Venlafaxine HCl 150 mg PO DAILY 09/16/19 09/16/19 History ER] Height: 1.68 m Weight: 100.78 kg Laboratory Results:: Laboratory Results - last 24 hr 09/24/19 11:51: POC Glucose 367 H* 09/24/19 14:25: Vancomycin Trough 10.2 H 09/24/19 16:35: POC Glucose 305 H* 09/24/19 20:06: POC Glucose 292 H 09/25/19 06:06: POC Glucose 134 H 09/25/19 06:52: WBC 13.2 H D, RBC 3.93 L, Hgb 11.3 L, Hct 37.6, MCV 95.5, MCH 28.8, MCHC 30.2 L, RDW 13.5, Plt Count 267, MPV 8.5, Neut % (Auto) 90.0 H, Lymph % (Auto) 5.2 L, [place] % (Auto) 4.2, Eos % (Auto) 0.4, Baso % (Auto) 0.2, Neut # (Auto) 11.9 H, Lymph # (Auto) 0.7, [place] # (Auto) 0.6, Eos # (Auto) 0.1, Baso # (Auto) 0.0, Total Counted 100, Neutrophils % (Manual) 85 H, Lymphocytes % (Manual) 10, Monocytes % (Manual) 5, Platelet Estimate Normal, Hypochromasia 1+, Poikilocytosis 1+, Stomatocytes 1+ 09/25/19 06:52: Sodium 143, Potassium 4.6, Chloride 104, Carbon Dioxide 39 H, Anion Gap 4.6 L, BUN 32 H, Creatinine 0.70, Estimated Creat Clear 83, Estimated GFR 83, Est GFR ( Amer) 100, Glucose 136 H, Calcium 8.6, Magnesium 2.3 D Medical History: Reports:: Anxiety, Asthma, Chronic Obstructive Pulmonary Disease (COPD), Diabetes Mellitus Type 2, Hyperlipidemia, Hypertension, MRSA Denies:: Cancer, Diabetes Mellitus Type 1, Internal Pacemaker, Seizures Assessment and Plan (1) Generalized anxiety disorder Current visit: Yes Status: Acute Category: Medical Code(s): F41.1 - Generalized anxiety disorder (2) Diabetes mellitus type 2, noninsulin dependent Current visit: Yes Status: Acute Category: Medical Code(s): E11.9 - Type 2 diabetes mellitus without complications (3) Obesity (BMI 30.0-34.9) Current visit: Yes Status: Acute Category: Medical Code(s): E66.9 - Obesity, unspecified (4) Community acquired pneumonia Current visit: Yes Status: Acute Qualifiers: Laterality: right Lung location: unspecified part of lung Qualified Code(s): J18.9 - Pneumonia, unspecified organism Category: Medical Code(s): J18.9 - Pneumonia, unspecified organism (5) Respiratory failure Current visit: Yes Status: Acute Qualifiers: Chronicity: acute on chronic Respiratory failure complication: hypoxia and hypercapnia Qualified Code(s): J96.21 - Acute and chronic respiratory failure with hypoxia; J96.22 - Acute and chronic respiratory failure with hypercapnia Category: Medical Code(s): J96.90 - Respiratory failure, unspecified, unspecified whether with hypoxia or hypercapnia (6) Severe sepsis Current visit: Yes Status: Acute Category: Medical Code(s): A41.9 - Sepsis, unspecified organism; R65.20 - Severe sepsis without septic shock (7) Acute kidney injury Current visit: Yes Status: Acute Category: Medical Code(s): N17.9 - Acute kidney failure, unspecified (8) Acute respiratory distress syndrome (ARDS) Current visit: Yes Status: Acute Category: Medical Code(s): J80 - Acute respiratory distress syndrome (9) Delirium, acute Current visit: Yes Status: Acute Category: Medical Code(s): R41.0 - Disorientation, unspecified (10) COPD (chronic obstructive pulmonary disease) Current visit: Yes Status: Chronic Category: Medical Code(s): J44.9 - Chronic obstructive pulmonary disease, unspecified (11) Hypertension Current visit: Yes Status: Chronic Qualifiers: Hypertension type: essential hypertension Qualified Code(s): I10 - Essential (primary) hypertension Category: Medical Code(s): I10 - Essential (primary) hypertension - Assessment and plan all Dx Assessment and Plan for all problems:: BASED ON PATIENT FACTORS AND VANCOMYCIN TROUGH OF 10.2, RECOMMEND CONTINUING CURRENT DOSE OF VANCOMYCIN. PHARMACY WILL CONTINUE TO MONITOR AND WILL ADJUST DOSE APPROPRIATE. -EULALIO RINCON, JOSUED
--- NOTE | 2019-09-25 08:58 | Progress Note ---
Internal Medicine - PN: Subj *Date: 09/25/19 *Time: 08:55 Exam Vital signs and Labs for Last 24 Hours: Temp Pulse Resp BP Pulse Ox 97.7 F 73 16 154/50 H 95 09/25/19 07:47 09/25/19 07:47 09/25/19 07:47 09/25/19 07:47 09/25/19 07:47 Laboratory Results - last 24 hr 09/24/19 11:51: POC Glucose 367 H* 09/24/19 14:25: Vancomycin Trough 10.2 H 09/24/19 16:35: POC Glucose 305 H* 09/24/19 20:06: POC Glucose 292 H 09/25/19 06:06: POC Glucose 134 H 09/25/19 06:52: WBC 13.2 H D, RBC 3.93 L, Hgb 11.3 L, Hct 37.6, MCV 95.5, MCH 28.8, MCHC 30.2 L, RDW 13.5, Plt Count 267, MPV 8.5, Neut % (Auto) 90.0 H, Lymph % (Auto) 5.2 L, [place] % (Auto) 4.2, Eos % (Auto) 0.4, Baso % (Auto) 0.2, Neut # (Auto) 11.9 H, Lymph # (Auto) 0.7, [place] # (Auto) 0.6, Eos # (Auto) 0.1, Baso # (Auto) 0.0, Total Counted 100, Neutrophils % (Manual) 85 H, Lymphocytes % (Manual) 10, Monocytes % (Manual) 5, Platelet Estimate Normal, Hypochromasia 1+, Poikilocytosis 1+, Stomatocytes 1+ 09/25/19 06:52: Sodium 143, Potassium 4.6, Chloride 104, Carbon Dioxide 39 H, Anion Gap 4.6 L, BUN 32 H, Creatinine 0.70, Estimated Creat Clear 83, Estimated GFR 83, Est GFR ( Amer) 100, Glucose 136 H, Calcium 8.6, Magnesium 2.3 D I & O for Last 24 hours: Intake & Output 09/22/19 09/23/19 09/24/19 09/25/19 11:59 11:59 11:59 11:59 Intake Total 0066 / 5922 2066 / 2609 2673 / 2673 830 / 830 Output Total 2583 / 2598 3665 / 3665 2750 / 2750 1050 / 1050 Balance 3164 / 3299 -1128 / -1056 -77 / -77 -220 / -220 Weight 218 lb 4 oz 219 lb 3 oz 222 lb 3 oz 222 lb 2.91 oz - Constitutional Comments: Patient is alert, NG tube in good position, pleasant, oriented - *Routine HEENT Exam Head: Present: normocephalic Eye: Present: EOMI, PERRL ENT: Present: mucous membranes moist - *Routine Neck Exam Present: supple. Absent: lymphadenopathy - *Routine Respiratory Exam Present: rhonchi Comments: but good air movement - *Routine Cardiovascular Exam Present: RRR, Normal S1, Normal S2 - *Routine Abdominal Exam Present: soft, normoactive bowel sounds. Absent: tenderness - *Routine Extremities Exam Present: pulses intact. Absent: cyanosis, clubbing, edema - *Routine Neurological Exam Present: alert, oriented X3 Assessment and Plan (1) Generalized anxiety disorder Current visit: Yes Status: Acute Category: Medical Code(s): F41.1 - Generalized anxiety disorder (2) Diabetes mellitus type 2, noninsulin dependent Current visit: Yes Status: Acute Category: Medical Code(s): E11.9 - Type 2 diabetes mellitus without complications (3) Obesity (BMI 30.0-34.9) Current visit: Yes Status: Acute Category: Medical Code(s): E66.9 - Obesity, unspecified (4) Community acquired pneumonia Current visit: Yes Status: Acute Qualifiers: Laterality: right Lung location: unspecified part of lung Qualified Code(s): J18.9 - Pneumonia, unspecified organism Category: Medical Code(s): J18.9 - Pneumonia, unspecified organism (5) Respiratory failure Current visit: Yes Status: Acute Qualifiers: Chronicity: acute on chronic Respiratory failure complication: hypoxia and hypercapnia Qualified Code(s): J96.21 - Acute and chronic respiratory failure with hypoxia; J96.22 - Acute and chronic respiratory failure with hypercapnia Category: Medical Code(s): J96.90 - Respiratory failure, unspecified, unspecified whether with hypoxia or hypercapnia (6) Severe sepsis Current visit: Yes Status: Acute Category: Medical Code(s): A41.9 - Sepsis, unspecified organism; R65.20 - Severe sepsis without septic shock (7) Acute kidney injury Current visit: Yes Status: Acute Category: Medical Code(s): N17.9 - Acute kidney failure, unspecified (8) Acute respiratory distress syndrome (ARDS) Current visit: Yes Status: Acute Category: Medical Code(s): J80 - Acute respiratory distress syndrome (9) Delirium, acute Current visit: Yes Status: Acute Category: Medical Code(s): R41.0 - Disorientation, unspecified (10) COPD (chronic obstructive pulmonary disease) Current visit: Yes Status: Chronic Category: Medical Code(s): J44.9 - Chronic obstructive pulmonary disease, unspecified (11) Hypertension Current visit: Yes Status: Chronic Qualifiers: Hypertension type: essential hypertension Qualified Code(s): I10 - Essential (primary) hypertension Category: Medical Code(s): I10 - Essential (primary) hypertension - Assessment and plan all Dx Assessment and Plan for all problems:: Overall patient continues to improve, I have encouraged her to work with physical therapy today as she refused yesterday. Plan for long-term care placement in the next couple of days. She is finished with appropriate levofloxacin therapy, 1 more day of vancomycin therapy, labs tomorrow morning. Remove NG tube as patient is eating and drinking appropriately.
[2019-09-26 05:58] LABS: Basophils % 0.3 % (0.1-2.0); Eosinophils # 0.1 K/mm3 (0.0-0.4); Eosinophils % 0.6 % (0.1-12.0); Hematocrit 37.7 % (37.0-47.0); Hemoglobin 11.5 g/dL (12.2-16.2); Lymphocytes # 0.5 K/mm3 (0.7-4.5); Lymphocytes % 5.8 % (10-50); Mean Corpuscular HGB Conc 30.5 g/dL (31.8-35.4); Mean Corpuscular Volume 96.2 fl (81-99); Monocytes # 0.5 K/mm3 (0.1-1.0); Monocytes % 4.8 % (1.7-9.3); Neutrophils # 8.2 K/mm3 (1.8-7.8); Neutrophils % 88.4 % (37.0-80.0); Platelet Count 220 K/mm3 (142-424); Red Blood Count 3.92 M/mm3 (4.20-5.40); Red Cell Distribution Width 13.5 % (11.5-17.5); White Blood Count 9.3 K/mm3 (4.8-10.8)
[2019-09-26 06:11] LABS: Calcium 8.6 mg/dl (8.4-10.2)
[2019-09-26 06:29] LABS: Anion Gap 2.3 mEq/L (5-15)
--- NOTE | 2019-09-26 08:29 | Progress Note ---
Internal Medicine - PN: Subj *Date: 09/26/19 *Time: 08:27 Interval history: Patient is alert, oriented x3, has been more active, worked with physical therapy yesterday. Through the night had an episode of hypothermia with documented axillary and oral temperatures at 92. She felt bad but did not have change in level of consciousness. She also had minimal hypoglycemia with blood sugars in the 40s, D5 NS was started. This morning she states she feels better, temperature has normalized as has her glucose. Exam Vital signs and Labs for Last 24 Hours: Temp Pulse Resp BP Pulse Ox 97.9 F 62 16 140/54 L 98 09/26/19 00:00 09/26/19 07:56 09/26/19 00:00 09/26/19 00:00 09/26/19 07:56 Laboratory Results - last 24 hr 09/25/19 11:59: POC Glucose 128 H 09/25/19 17:05: POC Glucose 81 09/25/19 19:56: POC Glucose 84 09/26/19 05:09: POC Glucose 202 H 09/26/19 05:43: WBC 9.3 D, RBC 3.92 L, Hgb 11.5 L, Hct 37.7, MCV 96.2, MCH 29.3, MCHC 30.5 L, RDW 13.5, Plt Count 220, MPV 8.0, Neut % (Auto) 88.4 H, Lymph % (Auto) 5.8 L, [place] % (Auto) 4.8, Eos % (Auto) 0.6, Baso % (Auto) 0.3, Neut # (Auto) 8.2 H, Lymph # (Auto) 0.5 L, [place] # (Auto) 0.5, Eos # (Auto) 0.1, Baso # (Auto) 0.0 09/26/19 05:43: Sodium 140, Potassium 4.3, Chloride 101, Carbon Dioxide 41 H*, Anion Gap 2.3 L, BUN 27 H, Creatinine 0.60, Estimated Creat Clear 83, Estimated GFR 99, Est GFR ( Amer) 120, Glucose 156 H, Calcium 8.6, Magnesium 2.2 I & O for Last 24 hours: Intake & Output 09/23/19 09/24/19 09/25/19 09/26/19 11:59 11:59 11:59 11:59 Intake Total 2537 / 2609 2673 / 2673 830 / 950 240 / 240 Output Total 3665 / 3665 2750 / 2750 1050 / 1050 700 / 700 Balance -1128 / -1056 -77 / -77 -220 / -100 -460 / -460 Weight 219 lb 3 oz 222 lb 3 oz 222 lb 2.91 oz 222 lb 2.91 oz Narrative: Patient is comfortable, wearing nasal cannula oxygen, in no distress. Her arms are slightly edematous as are her feet, her heart is regular, lungs have excellent air movement. Much clearer than previous exams. Oropharynx clear. Abdomen is soft and nontender. She is able to move her extremities but is globally extremely weak. Assessment and Plan (1) Generalized anxiety disorder Current visit: Yes Status: Acute Category: Medical Code(s): F41.1 - Generalized anxiety disorder (2) Diabetes mellitus type 2, noninsulin dependent Current visit: Yes Status: Acute Category: Medical Code(s): E11.9 - Type 2 diabetes mellitus without complications (3) Obesity (BMI 30.0-34.9) Current visit: Yes Status: Acute Category: Medical Code(s): E66.9 - Obesity, unspecified (4) Community acquired pneumonia Current visit: Yes Status: Acute Qualifiers: Laterality: right Lung location: unspecified part of lung Qualified Code(s): J18.9 - Pneumonia, unspecified organism Category: Medical Code(s): J18.9 - Pneumonia, unspecified organism (5) Respiratory failure Current visit: Yes Status: Acute Qualifiers: Chronicity: acute on chronic Respiratory failure complication: hypoxia and hypercapnia Qualified Code(s): J96.21 - Acute and chronic respiratory failure with hypoxia; J96.22 - Acute and chronic respiratory failure with hypercapnia Category: Medical Code(s): J96.90 - Respiratory failure, unspecified, unspecified whether with hypoxia or hypercapnia (6) Severe sepsis Current visit: Yes Status: Acute Category: Medical Code(s): A41.9 - Sepsis, unspecified organism; R65.20 - Severe sepsis without septic shock (7) Acute kidney injury Current visit: Yes Status: Acute Category: Medical Code(s): N17.9 - Acute kidney failure, unspecified (8) Acute respiratory distress syndrome (ARDS) Current visit: Yes Status: Acute Category: Medical Code(s): J80 - Acute respiratory distress syndrome (9) Delirium, acute Current visit: Yes Status: Acute Category: Medical Code(s): R41.0 - Disorientation, unspecified (10) COPD (chronic obstructive pulmonary disease) Current visit: Yes Status: Chronic Category: Medical Code(s): J44.9 - Chronic obstructive pulmonary disease, unspecified (11) Hypertension Current visit: Yes Status: Chronic Qualifiers: Hypertension type: essential hypertension Qualified Code(s): I10 - Essential (primary) hypertension Category: Medical Code(s): I10 - Essential (primary) hypertension - Assessment and plan all Dx Assessment and Plan for all problems:: Multiple medical problems including severe sepsis, pneumonitis and respiratory failure have improved. Patient needs correction care for significant PT/OT to be able to regain any type of functional status given her significant and disabling weakness. Her transient but notable hypothermia and hypoglycemia last night will be worked up with a chest x-ray, repeat urinalysis and culture and ABG as well as repeat labs tomorrow morning her labs this morning looked great. Another dose of Lasix for edema and third spacing today. Continue PT and plan for [facility] care transfer tomorrow assuming work-up today is good. We will stop nighttime Lantus insulin and continue sliding scale for meals. Encouraged increased p.o. intake today. Tolerated NG tube removal yesterday well.
[2019-09-26 09:43] LABS: Eosinophils % 1 % (0-3); Hypochromasia 1+; Lymphocytes % 7 % (10-50); Monocytes % 4 % (2-9); Neutrophils % 88 % (42-76); Total Cells Counted 100
[2019-09-26 12:58] LABS: ABG Base Excess 12.1 mmol/L (-2.4-2.3); ABG HCO3 36.5 mmhg (22.0-26.0); ABG Oxygen Saturation 89 % (90-100); ABG PH 7.42 mmol/L (7.35-7.45); ABG TCO2 38.3 mmhg (23-27)
[2019-09-26 13:01] LABS: Allen's Test ACCEPTABLE; Oxygen 32 %
[2019-09-26 13:04] LABS: ABG PCO2 57.5 mmhg (35.0-45.0)
--- NOTE | 2019-09-26 17:29 | Discharge Summary ---
General - General Admission date:: 09/16/19 <Miguel Schultz - 09/28/19 08:39> 09/16/19 <Yoel Richter - 09/26/19 17:29> Discharge date: 09/28/19 <Yoel Richter - 09/27/19 18:11> HPI HPI: 69-year-old white female with multiple medical problems including chronic emphysema, chronic anxiety and multiple medication intolerances with progressive debility over the past several years, who has been sick over the past 7 to 10 days with a cough, congestion and very minimal p.o. intake according to her and daughter. She was up doing housework at 3 AM this morning when she collapsed, when her daughter found her this morning she had been immobile supposedly over the past 5 to 6 hours. Brought to the emergency department. Work-up interestingly revealed no evidence of CPK elevation but she had acute on chronic respiratory failure and required BiPAP in the emergency department for a couple of hours. She was found to have evidence of sepsis, evidence of infection with 2 different lobes of the right lung involved with pneumonia on chest x-ray, and admitted to hospital for IV fluids, IV antibiotics, enhanced pulmonary toilet and further observation. <Yoel Richter - 09/26/19 17:29> Hospital Course Hospital Course: Ms. Swan 69-year-old female with chronic hypoxemic respiratory failure, COPD, anxiety who presented in critical condition with acute on chronic hypoxemic and hypercarbic respiratory failure. Was intubated on day of admission and required ventilator support for over 48 hours due to severe pneumonia. She had gradual improvement with ability to extubate to BiPAP however continued to struggle with pneumonia and respiratory failure for over a week with gradual defervescence of support to nasal cannula oxygen which she continues to require at this time. Additionally patient had an acute kidney injury, delirium after extubation for the first 2 days while in the ICU, p.o. intolerance necessitating NG tube feeds, uncontrolled diabetes with significant hyperglycemia, and electrolyte disturbances. Problems during hospitalization addressed as follows: Resp: -ARDS and right-sided pneumonia on admission. Improved with ventilator weaned to BiPAP, subsequently weaned to Ventimask and nasal cannula oxygen. Defervesced to 4 L nasal cannula O2 with appropriate oxygen saturations. We will continue to provide supplemental oxygen support with a goal Sats >92% awake; >88% asleep. Received breathing treatments regularly and aggressive pulmonary toilet. Treated with 10 days of IV antibiotics consisting of Levaquin and vancomycin for her pneumonia along with steroids. No antibiotics or steroids necessary at time of discharge. Continue breathing treatments for COPD and oxygen as needed Neuro -developed altered mentation initially during admission. After extubation had episode of delirium that improved over 48 hours. After placement of NG tube for nutrition and medications, had improvement in mentation with resumption of home antidepressant and anxiolytic medications. Mentation stayed appropriate for the remainder of her admission. Patient became gradually more cooperative and has worked well with physical therapy, speech therapy, nursing, physicians for the past week of admission. No further concerns of delirium at this time. Recommend consistent routine, caution with psychiatric medication adjustments, and consistent reorientation. Diabetes -On therapy at home prior to admission. Required escalating therapy after extubation while on steroids and after initiation of NG feeds. However when transition to p.o. feeds, required de-escalation of insulin therapy with use of sliding scale at this time. Continue to make adjustments in the outpatient set ting pending patient's nutritional improvements. Recommend fingerstick glucose before meals and at bedtime along with medium intensity sliding scale insulin therapy Renal -BREANNA present on admission. Resolved with fluid resuscitation and treatment of underlying sepsis. Monitor during admission with stable kidney function. Has continued volume overload, monitor for improvement with physical therapy and ambulation. May require PRN loop diuretics for diuresis is third spaced fluid mobilizes. HTN -Tolerating carvedilol and irbesartan. Continue oral treatment with goal blood pressure less than 140 systolic. Nutrition/Fluids -Initially n.p.o. during intubation, swallow study performed during admission with inability to protect airway. NG was placed with tube feeds for approximately 5 days until patient strength improved and she was reassessed by speech. Able to transition to mechanical soft chopped diet. See speech therapy notes for full recommendations. Would recommend reevaluating as her strength improves with continued protein supplementation. <Yoel Richter - 09/27/19 18:11> Objective Vital signs: Temp Pulse Resp BP Pulse Ox 98.1 F 80 18 190/80 H 90 L 09/28/19 04:00 09/28/19 06:03 09/28/19 04:00 09/28/19 04:00 09/28/19 06:03 <Miguel Schultz - 09/28/19 08:39> Temp Pulse Resp BP Pulse Ox 97.7 F 70 18 171/61 H 90 L 09/26/19 15:44 09/26/19 16:00 09/26/19 15:44 09/26/19 15:44 09/26/19 15:44 <Yoel Richter - 09/26/19 17:29> Narrative: Patient is pleasant, awake, on 2 L nasal cannula oxygen with acceptable sats. Blood pressure this morning very slightly elevated over baseline. Oropharynx clear although she complains of minimal posterior pharynx irritation. No evidence of thrush or posterior pharynx irritation. Dentition is in good repair. Lungs in the anterior casillas have fairly good air entry. Minimal basilar rhonchi but vastly improved over previous exams. Heart rate regular without murmurs. Abdomen soft. She has residual hand edema from third spacing in the both hands, slightly worse on the right, arm edema is improving. She has very trace ankle edema, essentially resolved. Neurologic exam reveals that she is slightly fuzzy about the date today but is fairly oriented. She is able to move all extremities well but is globally extremely weak. No evidence of rash. <Miguel Schultz - 09/28/19 08:39> Results Labs on day of discharge: Labs from last 24 hours 09/28/19 09/28/19 09/28/19 06:35 06:35 05:45 WBC 7.4 RBC 3.66 L Hgb 11.0 L Hct 34.4 L MCV 94.1 MCH 30.1 MCHC 32.0 RDW 14.1 Plt Count 243 MPV 7.9 Neut % (Auto) 81.3 H Lymph % (Auto) 10.2 [place] % (Auto) 7.6 Eos % (Auto) 0.6 Baso % (Auto) 0.2 Neut # (Auto) 6.0 Lymph # (Auto) 0.8 [place] # (Auto) 0.6 Eos # (Auto) 0.1 Baso # (Auto) 0.0 Sodium 135 L Potassium 3.9 Chloride 90 L Carbon Dioxide 40 H Anion Gap 8.9 BUN 20 H Creatinine 0.80 Estimated Creat Clear 81 Estimated GFR 71 Est GFR ( Amer) 86 Glucose 216 H D POC Glucose 213 H Calcium 9.0 09/28/19 09/27/19 09/27/19 00:23 20:35 16:40 WBC RBC Hgb Hct MCV MCH MCHC RDW Plt Count MPV Neut % (Auto) Lymph % (Auto) [place] % (Auto) Eos % (Auto) Baso % (Auto) Neut # (Auto) Lymph # (Auto) [place] # (Auto) Eos # (Auto) Baso # (Auto) Sodium Potassium Chloride Carbon Dioxide Anion Gap BUN Creatinine Estimated Creat Clear Estimated GFR Est GFR ( Amer) Glucose POC Glucose 227 H 270 H 229 H Calcium 09/27/19 11:47 WBC RBC Hgb Hct MCV MCH MCHC RDW Plt Count MPV Neut % (Auto) Lymph % (Auto) [place] % (Auto) Eos % (Auto) Baso % (Auto) Neut # (Auto) Lymph # (Auto) [place] # (Auto) Eos # (Auto) Baso # (Auto) Sodium Potassium Chloride Carbon Dioxide Anion Gap BUN Creatinine Estimated Creat Clear Estimated GFR Est GFR ( Amer) Glucose POC Glucose 185 H Calcium Preliminary micro results at discharge 09/26/19 10:30 Urine Culture - Preliminary Urine,Catheterized NO GROWTH AFTER 24 HOURS <Miguel Schultz - 09/28/19 08:39> Labs from last 24 hours 09/26/19 09/26/19 09/26/19 16:23 12:56 10:51 WBC RBC Hgb Hct MCV MCH MCHC RDW Plt Count MPV Neut % (Auto) Lymph % (Auto) [place] % (Auto) Eos % (Auto) Baso % (Auto) Neut # (Auto) Lymph # (Auto) [place] # (Auto) Eos # (Auto) Baso # (Auto) Total Counted Neutrophils % (Manual) Lymphocytes % (Manual) Monocytes % (Manual) Eosinophils % (Manual) Platelet Estimate Hypochromasia Specimen Source Right radial O2 % 32 ABG pH 7.42 ABG pCO2 57.5 H ABG pO2 55.0 L ABG HCO3 36.5 H ABG Total CO2 38.3 H ABG O2 Saturation 89 L ABG Base Excess 12.1 H Eliezer Test Acceptable Sodium Potassium Chloride Carbon Dioxide Anion Gap BUN Creatinine Estimated Creat Clear Estimated GFR Est GFR ( Amer) Glucose POC Glucose 162 H 86 Calcium Magnesium Urine Color Urine Appearance Urine pH Ur Specific [place] Urine Protein Urine Glucose (UA) Urine Ketones Urine Blood Urine Nitrate Urine Bilirubin Urine Urobilinogen Ur Leukocyte Esterase Urine RBC Urine WBC Ur Squamous Epith Cells Urine Bacteria 09/26/19 09/26/19 09/26/19 10:30 05:43 05:43 WBC 9.3 D RBC 3.92 L Hgb 11.5 L Hct 37.7 MCV 96.2 MCH 29.3 MCHC 30.5 L RDW 13.5 Plt Count 220 MPV 8.0 Neut % (Auto) 88.4 H Lymph % (Auto) 5.8 L [place] % (Auto) 4.8 Eos % (Auto) 0.6 Baso % (Auto) 0.3 Neut # (Auto) 8.2 H Lymph # (Auto) 0.5 L [place] # (Auto) 0.5 Eos # (Auto) 0.1 Baso # (Auto) 0.0 Total Counted 100 Neutrophils % (Manual) 88 H Lymphocytes % (Manual) 7 L Monocytes % (Manual) 4 Eosinophils % (Manual) 1 Platelet Estimate Normal Hypochromasia 1+ Specimen Source O2 % ABG pH ABG pCO2 ABG pO2 ABG HCO3 ABG Total CO2 ABG O2 Saturation ABG Base Excess Eliezer Test Sodium 140 Potassium 4.3 Chloride 101 Carbon Dioxide 41 H* Anion Gap 2.3 L BUN 27 H Creatinine 0.60 Estimated Creat Clear 83 Estimated GFR 99 Est GFR ( Amer) 120 Glucose 156 H POC Glucose Calcium 8.6 Magnesium 2.2 Urine Color Yellow Urine Appearance Clear Urine pH 7.0 Ur Specific [place] 1.020 Urine Protein Negative Urine Glucose (UA) Negative Urine Ketones Negative Urine Blood Negative Urine Nitrate Negative Urine Bilirubin Negative Urine Urobilinogen 0.2 Ur Leukocyte Esterase Negative Urine RBC 3-5 Urine WBC 5-10 Ur Squamous Epith Cells 3-5 Urine Bacteria 2+ A 09/26/19 09/25/19 05:09 19:56 WBC RBC Hgb Hct MCV MCH MCHC RDW Plt Count MPV Neut % (Auto) Lymph % (Auto) [place] % (Auto) Eos % (Auto) Baso % (Auto) Neut # (Auto) Lymph # (Auto) [place] # (Auto) Eos # (Auto) Baso # (Auto) Total Counted Neutrophils % (Manual) Lymphocytes % (Manual) Monocytes % (Manual) Eosinophils % (Manual) Platelet Estimate Hypochromasia Specimen Source O2 % ABG pH ABG pCO2 ABG pO2 ABG HCO3 ABG Total CO2 ABG O2 Saturation ABG Base Excess Eliezer Test Sodium Potassium Chloride Carbon Dioxide Anion Gap BUN Creatinine Estimated Creat Clear Estimated GFR Est GFR ( Amer) Glucose POC Glucose 202 H 84 Calcium Magnesium Urine Color Urine Appearance Urine pH Ur Specific Wallace Urine Protein Urine Glucose (UA) Urine Ketones Urine Blood Urine Nitrate Urine Bilirubin Urine Urobilinogen Ur Leukocyte Esterase Urine RBC Urine WBC Ur Squamous Epith Cells Urine Bacteria <Yoel Richter - 09/26/19 17:29> DS: Diagnosis - Discharge Diagnosis (1) Generalized anxiety disorder Status: Acute (2) Diabetes mellitus type 2, noninsulin dependent Status: Chronic (3) Obesity (BMI 30.0-34.9) Status: Chronic (4) Community acquired pneumonia Status: Acute (5) Respiratory failure Status: Acute (6) Severe sepsis Status: Resolved (7) Acute kidney injury Status: Resolved (8) Acute respiratory distress syndrome (ARDS) Status: Resolved (9) Delirium, acute Status: Resolved (10) COPD (chronic obstructive pulmonary disease) Status: Chronic (11) Hypertension Status: Chronic <Yoel Richter - 09/27/19 18:02> (1) Generalized anxiety disorder Status: Acute (2) Diabetes mellitus type 2, noninsulin dependent Status: Chronic (3) Obesity (BMI 30.0-34.9) Status: Chronic (4) Community acquired pneumonia Status: Acute (5) Respiratory failure Status: Acute (6) Severe sepsis Status: Resolved (7) Acute kidney injury Status: Resolved (8) Acute respiratory distress syndrome (ARDS) Status: Resolved (9) Delirium, acute Status: Resolved (10) COPD (chronic obstructive pulmonary disease) Status: Chronic (11) Hypertension Status: Chronic <Miguel Schultz 09/28/19 08:39> Discharge Plan - Patient Discharge Instructions ACTIVITY: Continue current activity <Miguel Schultz 09/28/19 08:39> Patient Instructions: Pneumonia-Adult, Sepsis, Anxiety Disorders, DI for Pneumonia -- Adult, DI for Anxiety -- Adult, DI for Sepsis -- Adult, DI for Respiratory Failure, Respiratory Failure <Miguel Schultz 09/28/19 08:39> Forms: <Miguel Schultz 09/28/19 08:39> - Follow up Plan Follow up with: Pamela Soares APRN [Primary Care Provider] - <Miguel Schultz 09/28/19 08:39> Disposition: Xfer SNF <Miguel Schultz - 09/28/19 08:39> Home Medications: Home Medications Medication Instructions Recorded Confirmed Type amitriptyline 100 mg tablet 100 mg PO HS 12/24/17 09/16/19 History ammonium lactate 12 % lotion 1 applic TOPICAL BID PRN 12/24/17 09/16/19 History ascorbic acid (vitamin C) 500 mg 100 mg PO DAILY 12/24/17 09/16/19 History capsule bisoprolol 10 1 tab PO DAILY 12/24/17 09/16/19 History mg-hydrochlorothiazide 6.25 mg tablet doxazosin 4 mg tablet 4 mg PO DAILY 12/24/17 09/16/19 History levothyroxine 88 mcg tablet 88 mcg PO DAILY 12/24/17 09/16/19 History losartan 100 mg tablet 100 mg PO DAILY 12/24/17 09/16/19 History metformin 1,000 mg tablet 1,000 mg PO BID 12/24/17 09/16/19 History simvastatin 40 mg tablet 40 mg PO HS 12/24/17 09/16/19 History triamcinolone acetonide 0.1 % 1 applic DENTAL QHS PRN 12/24/17 09/16/19 History dental paste umeclidinium 62.5 mcg/actuation 1 inh INHALATION Q24H 12/24/17 09/16/19 History blister powder for inhalation Diclofenac Sodium [Diclofenac 75mg 75 mg PO BID 09/16/19 09/16/19 History Tab] Venlafaxine HCl [Venlafaxine HCl 150 mg PO DAILY 09/16/19 09/16/19 History ER] ALPRAZolam [Xanax 1mg tab] 1 mg PO TIDP PRN #180 tablet 09/28/19 Rx ALPRAZolam [Xanax 1mg tab] 1 mg PO TIDP PRN #90 tab 09/28/19 Rx Insulin Glargine,Hum.rec.anlog 40 unit SUB-Q QHS #1 pen 09/28/19 Rx [Toukartiko Quinton Solostar] <Miguel Schultz - 09/28/19 08:39> Prescriptions/Medication Reconciliation: New ALPRAZolam [Xanax 1mg tab] 1 mg PO TIDP PRN #180 tablet PRN Reason: Anxiety Continued ascorbic acid (vitamin C) 500 mg capsule 100 mg PO DAILY umeclidinium 62.5 mcg/actuation blister powder for inhalation 1 inh IN HALATION Q24H ammonium lactate 12 % lotion 1 applic TOPICAL BID PRN PRN Reason: fungal levothyroxine 88 mcg tablet 88 mcg PO DAILY doxazosin 4 mg tablet 4 mg PO DAILY losartan 100 mg tablet 100 mg PO DAILY metformin 1,000 mg tablet 1,000 mg PO BID amitriptyline 100 mg tablet 100 mg PO HS bisoprolol 10 mg-hydrochlorothiazide 6.25 mg tablet 1 tab PO DAILY triamcinolone acetonide 0.1 % dental paste 1 applic DENTAL QHS PRN PRN Reason: dental Venlafaxine HCl [Venlafaxine HCl ER] 150 mg PO DAILY ALPRAZolam [Xanax 1mg tab] 1 mg PO TIDP PRN #90 tab PRN Reason: Anxiety Changed Insulin Glargine,Hum.rec.anlog [Leilani White] 40 unit SUB-Q QHS #1 pen Discontinued simvastatin 40 mg tablet 40 mg PO HS Diclofenac Sodium [Diclofenac 75mg Tab] 75 mg PO BID <Miguel Schultz - 09/28/19 08:39> - Problem Reconciliation Problems Reviewed?: Yes <Miguel Schultz - 09/28/19 08:39> Yes <Yoel Richter - 09/27/19 18:11>
[2019-09-27 07:25] LABS: Alanine Aminotransferase 20 U/L (12-78); Albumin Level 2.4 g/dl (3.5-5.0); Alkaline Phosphatase 44 U/L (38-126); Aspartate Amino Transferase 23 U/L (14-36); Bilirubin,Total 0.2 mg/dl (0.2-1.3); Blood Urea Nitrogen 22 mg/dl (7-17); Calcium 8.8 mg/dl (8.4-10.2); Chloride 94 mmol/L (98-107); Globulin 2.4 g/dL (1.3-3.2); Glucose 95 mg/dl (74-100); Sodium 136 mmol/L (136-145); Total Protein,Serum 4.8 g/dl (6.3-8.2)
[2019-09-27 07:29] LABS: Anion Gap 5.9 mEq/L (5-15); Carbon Dioxide > 40 mmol/L (22.0-30.0)
[2019-09-27 07:36] LABS: Basophils % 0.2 % (0.1-2.0); Eosinophils # 0.1 K/mm3 (0.0-0.4); Eosinophils % 0.9 % (0.1-12.0); Hematocrit 35.4 % (37.0-47.0); Hemoglobin 10.9 g/dL (12.2-16.2); Lymphocytes # 0.7 K/mm3 (0.7-4.5); Mean Corpuscular HGB Conc 30.9 g/dL (31.8-35.4); Mean Corpuscular Volume 95.2 fl (81-99); Mean Platelet Volume 7.8 fl (7.4-10.4); Monocytes # 0.5 K/mm3 (0.1-1.0); Neutrophils # 6.7 K/mm3 (1.8-7.8); Neutrophils % 83.9 % (37.0-80.0); Platelet Count 231 K/mm3 (142-424); Red Blood Count 3.72 M/mm3 (4.20-5.40); Red Cell Distribution Width 13.7 % (11.5-17.5)
--- NOTE | 2019-09-27 17:56 | Progress Note ---
Internal Medicine - PN: Subj *Date: 09/27/19 *Time: 08:45 Interval history: Patient is alert, oriented x3, lying supine in bed during interview. No acute distress on 4 L nasal cannula. Continuing to try to work with physical therapy though very weak and has limited ability to ambulate or move. Hemodynamically stable overnight, no hypothermia or hypoglycemia. Tolerating portions of her trays. Denies any confusion, shortness of breath, chest pain, nausea. Does have a little abdominal discomfort and has not had a bowel movement over 24 hours. Daughter at bedside, updated of plan Extensive discussion with patient today about disposition goals, she is hesitant for discharge as she does not feel she can handle physical therapy however she is doing a good job working with PT here and I reiterated to her that that is exactly why she needs transfer/discharge to a skilled care facility. She understands that the combo of nursing and PT care is not a we provide inpatient, and does not feel she is well enough to go home. Currently awaiting pre-CERT for [place] [facility] Exam Vital signs and Labs for Last 24 Hours: Temp Pulse Resp BP Pulse Ox 98.8 F 74 18 177/72 H 90 L 09/27/19 16:00 09/27/19 16:00 09/27/19 16:00 09/27/19 16:00 09/27/19 16:00 Laboratory Results - last 24 hr 09/26/19 20:01: POC Glucose 148 H 09/27/19 05:26: POC Glucose 92 09/27/19 07:08: WBC 8.0, RBC 3.72 L, Hgb 10.9 L, Hct 35.4 L, MCV 95.2, MCH 29.4, MCHC 30.9 L, RDW 13.7, Plt Count 231, MPV 7.8, Neut % (Auto) 83.9 H, Lymph % (Auto) 9.0 L, [place] % (Auto) 6.0, Eos % (Auto) 0.9, Baso % (Auto) 0.2, Neut # (Auto) 6.7, Lymph # (Auto) 0.7, [place] # (Auto) 0.5, Eos # (Auto) 0.1, Baso # (Auto) 0.0 09/27/19 07:08: Sodium 136, Potassium 3.9, Chloride 94 L, Carbon Dioxide > 40 H* , Anion Gap 5.9, BUN 22 H, Creatinine 0.70, Estimated Creat Clear 82, Estimated GFR 83, Est GFR ( Amer) 100, Glucose 95, Calcium 8.8, Total Bilirubin 0.2, AST 23, ALT 20, Alkaline Phosphatase 44, Total Protein 4.8 L, Albumin 2.4 L , Globulin 2.4, Albumin/Globulin Ratio 1.0 L 09/27/19 11:47: POC Glucose 185 H 09/27/19 16:40: POC Glucose 229 H I & O for Last 24 hours: Intake & Output 09/24/19 09/25/19 09/26/19 09/27/19 23:59 23:59 23:59 23:59 Intake Total 590 / 590 480 / 480 840 / 840 Output Total 1050 / 1400 800 / 800 4695 / 4695 400 / 400 Balance -460 / -810 -320 / -320 -3855 / -3855 -400 / -400 Weight 100.783 kg 100.78 kg 100.78 kg 99.478 kg Microbiology Reports for the Last 24 Hours: Microbiology 09/26/19 10:30 Urine,Catheterized Urine Culture - Preliminary NO GROWTH AFTER 24 HOURS Narrative: Comfortable in bed, supine on nasal cannula oxygen 4 L Lungs with good aeration bilaterally, faint crackles bilateral bases posterior lung casillas, no significant rhonchi or wheeze. Anasarca, multiple ecchymoses at sites of previous IVs/needlesticks for labs heart is regular, no murmur Oropharynx clear, moist mucous membranes abdomen is soft and nontender Strength 4/5 globally, no focal deficits Assessment and Plan (1) Generalized anxiety disorder Current visit: Yes Status: Acute Category: Medical Code(s): F41.1 - Generalized anxiety disorder (2) Diabetes mellitus type 2, noninsulin dependent Current visit: Yes Status: Chronic Category: Medical Code(s): E11.9 - Type 2 diabetes mellitus without complications SSI ACHS with FSGS ACHS. continue to hold Basal insulin at this time, re- evaluate tomorrow. (3) Obesity (BMI 30.0-34.9) Current visit: Yes Status: Chronic Category: Medical Code(s): E66.9 - Obes ity, unspecified complicates all aspects of her care. (4) Community acquired pneumonia Current visit: Yes Status: Acute Qualifiers: Laterality: right Lung location: unspecified part of lung Qualified Code(s): J18.9 - Pneumonia, unspecified organism Category: Medical Code(s): J18.9 - Pneumonia, unspecified organism (5) Respiratory failure Current visit: Yes Status: Acute Qualifiers: Chronicity: acute on chronic Respiratory failure complication: hypoxia and hypercapnia Qualified Code(s): J96.21 - Acute and chronic respiratory failure with hypoxia; J96.22 - Acute and chronic respiratory failure with hypercapnia Category: Medical Code(s): J96.90 - Respiratory failure, unspecified, unspecified whether with hypoxia or hypercapnia improving, still requiring increased O2 above baseline (6) Severe sepsis Current visit: Yes Status: Resolved Category: Medical Code(s): A41.9 - Sepsis, unspecified organism; R65.20 - Severe sepsis without septic shock (7) Acute kidney injury Current visit: Yes Status: Resolved Category: Medical Code(s): N17.9 - Acute kidney failure, unspecified (8) Acute respiratory distress syndrome (ARDS) Current visit: Yes Status: Resolved Category: Medical Code(s): J80 - Acute respiratory distress syndrome (9) Delirium, acute Current visit: Yes Status: Resolved Category: Medical Code(s): R41.0 - Disorientation, unspecified (10) COPD (chronic obstructive pulmonary disease) Current visit: Yes Status: Chronic Category: Medical Code(s): J44.9 - Chronic obstructive pulmonary disease, unspecified (11) Hypertension Current visit: Yes Status: Chronic Qualifiers: Hypertension type: essential hypertension Qualified Code(s): I10 - Essential (primary) hypertension Category: Medical Code(s): I10 - Essential (primary) hypertension - Assessment and plan all Dx Assessment and Plan for all problems:: Multiple medical problems including severe sepsis, pneumonia, and respiratory failure have improved. Patient needs fdc care for significant PT/OT to be able to regain any type of functional status given her significant and disabling weakness. Currently awaiting pre-CERT for [place], Case management consulted, appreciate their assistance Remained hemodynamically stable for the past 24 hours. No further episodes of hypoglycemia or hypothermia. Labs this morning look improved We will hold today on another dose of Lasix, consider additional dose tomorrow of Lasix for edema and third spacing. Continue PT and plan for residential care transfer in the coming days pending acceptance and precertification Encouraged increased p.o. intake today. Full code Family at bedside, updated of plan Mechanical soft diet
[2019-09-28 07:10] LABS: Basophils % 0.2 % (0.1-2.0); Eosinophils # 0.1 K/mm3 (0.0-0.4); Eosinophils % 0.6 % (0.1-12.0); Hematocrit 34.4 % (37.0-47.0); Lymphocytes # 0.8 K/mm3 (0.7-4.5); Lymphocytes % 10.2 % (10-50); Mean Corpuscular Volume 94.1 fl (81-99); Mean Platelet Volume 7.9 fl (7.4-10.4); Monocytes # 0.6 K/mm3 (0.1-1.0); Monocytes % 7.6 % (1.7-9.3); Neutrophils % 81.3 % (37.0-80.0); Platelet Count 243 K/mm3 (142-424); Red Blood Count 3.66 M/mm3 (4.20-5.40); Red Cell Distribution Width 14.1 % (11.5-17.5); White Blood Count 7.4 K/mm3 (4.8-10.8)
[2019-09-28 07:26] LABS: Anion Gap 8.9 mEq/L (5-15)
--- NOTE | 2019-09-28 16:12 | Electrocardiograph Report ---
APPROVED REPORT Exam: Resting ECG HR:51 bpm ECG Measurements Heart Rate 51 AXES OH 160 P 57 QRSd 74 QRS 14 QT 450 T38 QTc 414 <Conclusion> Sinus bradycardia Low voltage QRS Cannot rule out Anteroseptal infarct, age undetermined Abnormal ECG Electronically signed by : Miguel Schultz, 09/28/2019 16:12:39
== END 2019-09-28 11:55 | DRG 208 ==
LOC: ER 10:42 → 2ND 12:08
PROVIDERS: ADMIT Internal Medicine Adolescent Medicine; ATTEND Internal Medicine Adolescent Medicine
CPT/HCPCS: 36415; 71010; 71020; 71045; 71046; 72170; 80048; 80053; 80202; 81001; 82550; 82553; 82803; 82962; 83605; 83735; 83880; 84100; 84134; 84439; 84443; 84484; 85007; 85025; 87040; 87070; 87086; 87205; 87275; 87276; 92610; 93005; 94002; 94640; 94660; 94760; 94761; 96365; 96367; 96375; 97110; 97140; 97163; 97530; 99285; J0330; J1956; J2405; J2704; J3370; J3490

== ENCOUNTER → 2019-11-28 10:57 | Outpatient (CLI) | payer MEDICARE, SELFPAY ==
[2019-11-28 11:26] LABS: Basophils # 0.1 K/mm3 (0-0.2); Basophils % 2.1 % (0.1-2.0); Eosinophils # 0.2 K/mm3 (0.0-0.4); Eosinophils % 3.5 % (0.1-12.0); Hematocrit 30.4 % (37.0-47.0); Hemoglobin 9.5 g/dL (12.2-16.2); Lymphocytes # 1.9 K/mm3 (0.7-4.5); Mean Corpuscular HGB Conc 31.2 g/dL (31.8-35.4); Mean Corpuscular Hemoglobin 30.4 pg (27.0-31.2); Mean Corpuscular Volume 97.4 fl (81-99); Mean Platelet Volume 7.8 fl (7.4-10.4); Monocytes # 0.5 K/mm3 (0.1-1.0); Monocytes % 7.1 % (1.7-9.3); Neutrophils # 3.7 K/mm3 (1.8-7.8); Neutrophils % 57.2 % (37.0-80.0); Platelet Count 176 K/mm3 (142-424); Red Blood Count 3.12 M/mm3 (4.20-5.40); Red Cell Distribution Width 14.8 % (11.5-17.5); White Blood Count 6.5 K/mm3 (4.8-10.8)
[2019-11-28 12:37] LABS: Hemoglobin A1C 5.5 % (4.0-6.0)
== END ==
PROVIDERS: Visit Provider Internal Medicine Adolescent Medicine
DX: J44.9 Chronic obstructive pulmonary disease, unspecified (principal); E11.9 Type 2 diabetes mellitus without complications; Z79.4 Long term (current) use of insulin
CPT/HCPCS: 83036; 85025

== ENCOUNTER 2020-11-13 17:06 | Inpatient (IN) | payer MEDICARE, SELFPAY ==
--- NOTE | 2020-11-13 17:10 | HMH.EDGENADL ---
ED Disposition Clinical Impression: Acute exacerbation of chronic obstructive airways disease Disposition: Admitted As Inpatient Condition on Discharge: Good Referrals: Pamela Soares APRN [Primary Care Provider] - Time of Disposition: 18:46 - Critical Care Critical Care Time: No Attestation: On , the high probability of a clinically significant, sudden or life threatening deterioration of the following system(s) required my full and direct attention, intervention and personal management. The time I documented below is in addition to time spent performing reported procedures but includes the following listed in this critical care notation. Medical Decision Making - Medical Records Medical records reviewed: Yes: I reviewed the patient's medical records. - Andrei Inquiry Pt receiving controlled substance: No Vital Signs: 11/13/20 17:24 Temperature 98.4 F Temperature Source Oral Pulse Rate [Right] 73 Respiratory Rate 18 Blood Pressure [Right Arm] 135/57 L Blood Pressure Mean [Right Arm] 83 02 Sat by Pulse Oximetry 98 - Lab Data Lab results reviewed: Yes: I reviewed the patient's lab results. Lab Results 11/13/20 17:43: WBC 5.1, RBC 3.36 L, Hgb 9.8 L, Hct 31.6 L, MCV 94.0, MCH 29.1, MCHC 30.9 L, RDW 14.0, Plt Count 224, MPV 7.5, Neut % (Auto) 69.6, Lymph % (Auto) 14.3, [place] % (Auto) 8.3, Eos % (Auto) 6.8, Baso % (Auto) 0.9, Neut # (Auto) 3.6, Lymph # (Auto) 0.7, [place] # (Auto) 0.4, Eos # (Auto) 0.4, Baso # (Auto) 0.1 11/13/20 17:43: Sodium 138, Potassium 4.5, Chloride 94 L, Carbon Dioxide 39 H, Anion Gap 9.5, BUN 15, Creatinine 0.70, Estimated Creat Clear 45, Estimated GFR 82, Est GFR ( Amer) 100, Glucose 195 H, Calcium 9.4, Total Bilirubin 0.4, AST 27, ALT 42, Alkaline Phosphatase 68, Troponin I < 0.01, Total Protein 7.4 D, Albumin 4.2, Globulin 3.2, Albumin/Globulin Ratio 1.3 Result diagrams: 11/13/20 17:43 11/13/20 17:43 Orders (Tests/Meds): ED MEDICATIONS Generic Name Dose Route Start Last Admin Trade Name Freq PRN Reason Stop Dose Admin Azithromycin 500 mg/ Sodium 250 mls @ 250 mls/hr 11/13/20 18:45 Chloride IV 11/27/20 18:44 Q24H WINNIE Protocol Discontinued Medications Generic Name Dose Route Start Last Admin Trade Name Freq PRN Reason Stop Dose Admin Methylprednisolone Sodium Succinate 125 mg 11/13/20 18:28 11/13/20 18:34 Methylprednisolone Sod Succ 125mg Vial IV 11/13/20 18:29 125 mg ONCE ONE Administration ORDERS Category Date Time Status Covid-19 Nasal PCR ([facility]) Routine Lab 11/13/20 18:28 Received Troponin I Q3H Lab 11/13/20 20:30 Ordered Troponin I Q3H Lab 11/13/20 23:30 Ordered - Radiology Data #1 Image(s): Chest Image Reviewed: Yes I have reviewed radiologist's interpretation Preliminary Findings: Abnormal Possible right lower lobe infiltrate - ECG Data Tracing #1 69 bpm, sinus rhythm with occasional PVC, no ST elevation or depression, normal intervals. ECG initial impression date: 11/13/20 ECG initial impression time: 17:30 Medical Decision Narrative: 70yo F evaluated emergency department secondary to progressive shortness of breath. Patient is in no acute distress on initial evaluation. Her O2 saturations are appropriate on 4 L nasal cannula. Patient is observed to have speak in shortened sentences because she gets winded with long conversation. Her physical exam is unremarkable except for coarse lung sounds throughout. Patient's HPI is most consistent with COPD exacerbation. She is treated with Solu-Medrol 125 mg IV and azithromycin IV. Dr. Rosas is paged for admission for COPD exacerbation and accepts the pt at this time General Adult HPI - General Stated complaint: SOB;cough Time Seen by Provider: 11/13/20 17:10 - History of Present Illness HPI narrative: 70yo F presents to the emergency department with her secondary to shortness of breath. Patient has a history of asthma and likely [employer]
[2020-11-13 17:24] VITALS: BP 135/57; PULSE 73; RESP 18; TEMP 36.9; O2SAT 98; BMI 71.8
--- NOTE | 2020-11-13 17:26 | XR_ITS ---
PROCEDURE: XR CHEST PORTABLE CLINICAL HISTORY: wheezing COMPARISON: CT CTAC CTA-CHEST from 02/15/2016 CR XR CHEST PORTABLE from 09/18/2019 CR XR CHEST PORTABLE from 09/20/2019 CR XR CHEST 2V from 09/26/2019 FINDINGS: The cardiomediastinal silhouette and pulmonary vascularity are within normal limits. There are increased markings in the right mid lower lung zone. This may be related to artifact from overlying soft tissue attenuation. Cannot exclude underlying infiltrate. Consider upright PA and lateral chest for further evaluation if patient can tolerate. Fibrotic changes are present in the right perihilar region. IMPRESSION: Possible right lower lobe infiltrate. Follow-up suggested Dictated by: Eliezer Tamayo MD 11/13/2020 18:24 Eliezer Tamayo MD in [place] 11/13/2020 18:24
--- NOTE | 2020-11-13 17:26 | ECG_ITS ---
APPROVED REPORT Exam: Resting ECG HR:69 bpm ECG Measurements Heart Rate 69 AXES SC 164 P 49 QRSd 84 QRS 6 QT 388 T 54 QTc 415 Conclusion Sinus rhythm with premature supraventricular complexes Low voltage QRS Septal infarct, age undetermined Abnormal ECG Electronically signed by : Miguel Schultz, 11/15/2020 13:57:24
[2020-11-13 17:53] LABS: Basophils # 0.1 K/mm3 (0-0.2); Basophils % 0.9 % (0.1-2.0); Eosinophils # 0.4 K/mm3 (0.0-0.4); Eosinophils % 6.8 % (0.1-12.0); Hematocrit 31.6 % (37.0-47.0); Hemoglobin 9.8 g/dL (12.2-16.2); Lymphocytes # 0.7 K/mm3 (0.7-4.5); Lymphocytes % 14.3 % (10-50); Mean Corpuscular HGB Conc 30.9 g/dL (31.8-35.4); Mean Corpuscular Hemoglobin 29.1 pg (27.0-31.2); Mean Platelet Volume 7.5 fl (7.4-10.4); Monocytes # 0.4 K/mm3 (0.1-1.0); Monocytes % 8.3 % (1.7-9.3); Neutrophils # 3.6 K/mm3 (1.8-7.8); Neutrophils % 69.6 % (37.0-80.0); Platelet Count 224 K/mm3 (142-424); Red Blood Count 3.36 M/mm3 (4.20-5.40); White Blood Count 5.1 K/mm3 (4.8-10.8)
[2020-11-13 17:58] LABS: Chloride 94 mmol/L (98-107)
[2020-11-13 17:59] LABS: Potassium 4.5 mmoL/L (3.5-5.1); Sodium 138 mmol/L (136-145)
[2020-11-13 18:01] LABS: Blood Urea Nitrogen 15 mg/dl (7-17); Creatinine Clearance Estimated 45 mL/min (50-200); Estimated Glomerular Filt Rate 82 ml/min (>60); GFR (African American) 100 ML/MIN (>60)
[2020-11-13 18:02] LABS: Alanine Aminotransferase 42 U/L (12-78); Albumin Level 4.2 g/dl (3.5-5.0); Albumin/Globulin Ratio 1.3 (1.1-1.8); Alkaline Phosphatase 68 U/L (38-126); Anion Gap 9.5 mEq/L (5-15); Aspartate Amino Transferase 27 U/L (14-36); Bilirubin,Total 0.4 mg/dl (0.2-1.3); Calcium 9.4 mg/dl (8.4-10.2); Carbon Dioxide 39 mmol/L (22.0-30.0); Globulin 3.2 g/dL (1.3-3.2); Glucose 195 mg/dl (74-100); Total Protein,Serum 7.4 g/dl (6.3-8.2)
[2020-11-13 18:17] LABS: Troponin I < 0.01 ng/ml (0.00-0.034)
--- NOTE | 2020-11-13 18:44 | PC.NURSE ---
Called for bed admission, house
[2020-11-13 21:09] LABS: Troponin I < 0.01 ng/ml (0.00-0.034)
--- NOTE | 2020-11-13 22:00 | PC.NURSE ---
Report called to Kimberly at this time.
[2020-11-13 22:17] VITALS: BP 116/54; BP 131/65; PULSE 71; PULSE 93; RESP 18; TEMP 36.2; TEMP 36.4; O2SAT 94; O2SAT 99; BMI 34.7
--- NOTE | 2020-11-13 22:17 | PC.NURSE ---
patient up to floor via wheelchair.
[2020-11-13 22:35] VITALS: PULSE 60
[2020-11-13 23:50] LABS: Troponin I < 0.01 ng/ml (0.00-0.034)
[2020-11-14] VITALS (10 sets, daily range): BP systolic 126–151; BP diastolic 54–73; PULSE 65–100; RESP 18–20; TEMP 36.4–36.8; O2SAT 85–95; BMI 34.6
--- NOTE | 2020-11-14 04:36 | PC.NURSE ---
pt was admitted with COPD exacerbation. came to the floor on 5LNC and was maintaining o2 sat around 94%. throughout the night o2 sat dropped to 84% and remained. venti-mask was applied on 50% and 15L. o2 sat slowly increased and have been between 89-92%. IV patent. pt is independent with ambulation but is excreted easily and o2 sat decrease. pt did complain of pain in left shoulder and prn medication given and warm blanket was applied to area. vss. call light in reach. will continue to monitor pt condition.
[2020-11-14 06:16] LABS: POC Glucose,Bedside 315 (70-110)
[2020-11-14 06:40] LABS: Basophils # 0.1 K/mm3 (0-0.2); Basophils % 0.8 % (0.1-2.0); Eosinophils % 0.6 % (0.1-12.0); Hematocrit 30.2 % (37.0-47.0); Hemoglobin 9.5 g/dL (12.2-16.2); Lymphocytes # 0.4 K/mm3 (0.7-4.5); Lymphocytes % 7.9 % (10-50); Mean Corpuscular HGB Conc 31.6 g/dL (31.8-35.4); Mean Corpuscular Hemoglobin 29.6 pg (27.0-31.2); Mean Corpuscular Volume 93.8 fl (81-99); Mean Platelet Volume 8.2 fl (7.4-10.4); Monocytes # 0.1 K/mm3 (0.1-1.0); Monocytes % 2.6 % (1.7-9.3); Neutrophils # 4.7 K/mm3 (1.8-7.8); Neutrophils % 87.9 % (37.0-80.0); Platelet Count 230 K/mm3 (142-424); Red Blood Count 3.22 M/mm3 (4.20-5.40); Red Cell Distribution Width 14.1 % (11.5-17.5); White Blood Count 5.4 K/mm3 (4.8-10.8)
[2020-11-14 06:43] LABS: MANUAL DIFFERENTIAL MANUAL DIFFERENTIAL (MANUAL DIFF)
[2020-11-14 06:54] LABS: Chloride 94 mmol/L (98-107); Sodium 136 mmol/L (136-145)
[2020-11-14 06:55] LABS: Potassium 5.4 mmoL/L (3.5-5.1)
[2020-11-14 06:57] LABS: Blood Urea Nitrogen 19 mg/dl (7-17); Creatinine Clearance Estimated 75 mL/min (50-200)
[2020-11-14 06:58] LABS: Anion Gap 11.4 mEq/L (5-15); Calcium 8.9 mg/dl (8.4-10.2); Carbon Dioxide 36 mmol/L (22.0-30.0); Estimated Glomerular Filt Rate 82 ml/min (>60); GFR (African American) 100 ML/MIN (>60); Glucose 327 mg/dl (74-100)
[2020-11-14 07:05] LABS: Lymphocytes % 8 % (10-50); Monocytes % 3 % (2-9); Neutrophils % 89 % (42-76); Total Cells Counted 100
[2020-11-14 07:07] LABS: Hypochromasia 1+; Platelet Estimate Normal
--- NOTE | 2020-11-14 07:24 | HMH.PHAVTE ---
[facility] Pharmacy VTE Monitoring - Patient Demographics Admission date: 11/13/20 Report Date: 11/14/20 Time: 07:24 Allergies/Adverse Reactions: Patient Allergies cephalexin [CEPHALEXIN] Allergy (Severe, Verified 11/13/20 22:43) S-DIFF. BREATHING, SWELLING Sulfa (Sulfonamide Antibiotics) [SULFA (SULFONAMIDE ANTIBIOTICS)] Allergy (Severe, Verified 11/13/20 22:43) S-DIFF. BREATHING, SWELLING acetaminophen [From PERCOCET] Allergy (Intermediate, Verified 11/13/20 22:43) I-RASH, HEADACHE albuterol [ALBUTEROL] Allergy (Intermediate, Verified 11/13/20 22:43) I-RASH; HEADACHE amoxicillin [From AUGMENTIN] Allergy (Intermediate, Verified 11/13/20 22:43) I-RASH, HEADACHE atorvastatin [From LIPITOR] Allergy (Intermediate, Verified 11/13/20 22:43) I-ITCHING; HAIR FALLS OUT clavulanic acid [From AUGMENTIN] Allergy (Intermediate, Verified 11/13/20 22:43) I-RASH, HEADACHE codeine [From TYLENOL-CODEINE] Allergy (Intermediate, Verified 11/13/20 22:43) I-RASH, HEADACHE hydrocodone [From LORTAB] Allergy (Intermediate, Verified 11/13/20 22:43) I-ITCHING (IN LARGE DOSES PER PT.) morphine [MORPHINE] Allergy (Intermediate, Verified 11/13/20 22:43) I-RASH, HEADACHE, ASTHMA ATTACKS oxycodone [From PERCOCET] Allergy (Intermediate, Verified 11/13/20 22:43) I-RASH, HEADACHE tramadol [TRAMADOL] Allergy (Intermediate, Verified 11/13/20 22:43) I-RASH, HEADACHE ipratropium [IPRATROPIUM] Allergy (Mild, Verified 11/13/20 22:43) Unknown allergy reaction Height: 1.63 m Weight: 92.079 kg Patient Problems: Current Active Problems Acute exacerbation of chronic obstructive airways disease (Acute) - VTE Risk Labs: VTE Related Lab Results Hgb 9.5 g/dL (12.2-16.2) L 11/14/20 06:33 Hct 30.2 % (37.0-47.0) L 11/14/20 06:33 Plt Count 230 K/mm3 (142-424) 11/14/20 06:33 BUN 19 mg/dl (7-17) H D 11/14/20 06:33 Creatinine 0.70 mg/dl (0.52-1.04) 11/14/20 06:33 Estimated Creat Clear 75 mL/min (50-200) 11/14/20 06:33 Was VTE Risk Assessment Performed: Yes VTE Score: 4 VTE Risk Level: Low Risk - Prophylaxis VTE Prophylaxis Ordered?: Yes Types of VTE Prophylaxis: TEDS Knee High, Pharmacological Location of Applied Device: Bilateral Lower Extremeties Pharmacologic Type: Enoxaparin
--- NOTE | 2020-11-14 07:48 | HMH.HP ---
*Admission Date: 11/13/20 *Chief complaint: Cough, shortness of air, increasing oxygen requirement *History of present illness: 70-year-old white female with known COPD has been sick for over a week and a half, did not come to the office, thought she might get better but has become increasingly short of air, with inability to finish sentences or do activities of daily living, has had increasing brown sputum production. Came to the emergency department, found to have significant oxygen requirement, wheezing, significant tightness on exam and infiltrate in the right lower lung field on chest x-ray. Admitted to hospital for COPD exacerbation and treatment of community-acquired pneumonia. [facility] History I have reviewed the patient's past medical history: Yes Medical History: Reports:: Anxiety, Asthma, Chronic Obstructive Pulmonary Disease (COPD), Deep Vein Thrombosis, Diabetes Mellitus Type 2, Hyperlipidemia, Hypertension, MRSA Denies:: Cancer, Diabetes Mellitus Type 1, Internal Pacemaker, Seizures *Have you ever received a pneumonia vaccine?: Yes *Have you received a flu vaccine this season?: Yes Other Medical History: Reports: Fibromyalgia, Hypothyroidism, Sinus Problems, Thyroid Disease (HYPERTHYROID). Denies: Blood Transfusion Reaction Laterality Cases: Bilateral: Tonsillectomy, Other Other Surgeries: Yes: Cholecystectomy, Colonoscopy, Hernia Repair (X3), Hysterectomy-Total, Hysterectomy-Partial, Tubal Ligation, Other (BLADDER). No: Pacemaker Amputation: No Fractures: No - *Social History Smoking Status: Former smoker Tobacco Type: cigarettes # Packs/Day (cigarettes): 1 Alcohol Intake: never Substance Use Type: denies use *Occupational Status:: retired Housing: house Household Members: spouse *Travel in the last 8 weeks: None - Psychiatric History Pschychiatric History:: Reports:: Anxiety Family Hx:: Cancer, Diabetes, Hyperlipidemia, Hypertension Review of Systems - Review of Systems Review of systems:: pertinent systems reviewed and negative unless documented below - Constitutional Reports anorexia, Reports fatigue, Reports night sweats - Eyes Denies blind spots, Denies blurry vision - ENT Reports dry mouth, Denies abnormal hearing, Denies dizziness - *Cardiovascular Reports shortness of breath, Reports shortness of breath with activity, Denies chest pain, Denies leg swelling - *Respiratory Reports change in phlegm color, Reports chest congestion, Reports cough - *Gastrointestinal Denies abdominal pain, Denies change in stools, Denies coffee ground vomit - *Musculoskeletal Reports muscle weakness, Denies abnormal walking, Denies joint swelling - Integumentary/Breasts Denies acne, Denies hair loss, Denies bleeding lesions - *Neurologic Denies abnormal walking, Denies behavioral changes, Denies burning sensations - Endocrine Denies cold intolerance, Denies rapid, pounding, or irregular heartbeat Meds Home Medications Medication Instructions Recorded Confirmed Type amitriptyline 100 mg tablet 100 mg PO HS 12/24/17 11/13/20 History ammonium lactate 12 % lotion 1 applic TOPICAL BID PRN 12/24/17 09/16/19 History ascorbic acid (vitamin C) 500 mg 100 mg PO DAILY 12/24/17 09/16/19 History capsule bisoprolol 10 1 tab PO DAILY 12/24/17 11/13/20 History mg-hydrochlorothiazide 6.25 mg tablet doxazosin 4 mg tablet 4 mg PO DAILY 12/24/17 11/13/20 History levothyroxine 88 mcg tablet 88 mcg PO DAILY 12/24/17 11/13/20 History losartan 100 mg tablet 100 mg PO DAILY 12/24/17 11/13/20 History metformin 1,000 mg tablet 1,000 mg PO BID 12/24/17 11/13/20 History triamcinolone acetonide 0.1 % 1 applic TOPICAL BIDP PRN 12/24/17 09/16/19 History dental paste umeclidinium 62.5 mcg/actuation 1 inh INHALATION Q24H 12/24/17 09/16/19 History blister powder for inhalation Venlafaxine HCl [Venlafaxine HCl 150 mg PO DAILY 09/16/19 09/16/19 History ER] ALPRAZolam [Xanax 1mg tab] 1 mg PO TIDP PRN #180 tab
--- NOTE | 2020-11-14 11:27 | CT_ITS ---
PROCEDURE: CT ANGIO CHEST CLINCIAL INDICATION: Hypoxia No evidence of pulmonary embolus, aortic aneurysm, or aortic dissection.. Atheromatous changes are present involving the aorta. Coronary artery calcifications are noted. There are small bilateral pleural effusions with scattered atelectatic changes. COMPARISON: CT CTAC CTA-CHEST from 02/15/2016 TECHNIQUE: IV Contrast: 70ML Isovue 370 Axial images obtained with sagittal and coronal reformats. All CT scans at the facility use one or more dose reduction, viz: automated exposure control, ma/kV adjustment per patient size (including targeted exams where dose is matched to indication, i.e. head), or iterative reconstruction technique. FINDINGS: No evidence of pulmonary embolus, aortic aneurysm, or aortic dissection.. Atheromatous changes are present involving the aorta. Coronary artery calcifications are noted. There are small bilateral pleural effusions with scattered atelectatic changes. Mosaic attenuation noted with crazy paving pattern which may be related to pulmonary edema or atypical pneumonia. 7 mm nodular opacity left upper lobe nonspecific. No acute bony findings. IMPRESSION: No evidence of pulmonary embolus. Small bilateral effusions with mosaic attenuation of the lungs and interstitial thickening suggesting CHF. Atypical pneumonia would be included in the differential diagnosis. Atelectatic changes Dictated by: Eliezer Tamayo MD 11/15/2020 08:55 Eliezer Tamayo MD in [place] 11/15/2020 08:55
--- NOTE | 2020-11-14 11:36 | HMH.PHAINT ---
MEDICATION RECONCILIATION COMPLETED USING EXTERNAL FILL HISTORY, PHYSICIAN OFFICE NOTE, AND PATIENT INTERVIEW
--- NOTE | 2020-11-14 17:25 | PC.NURSE ---
PT COULD NOT COUGH UP SPUTUM AT THIS TIME. CUP AT BEDSIDE. ENCOURAGED TO TRY TO COUGH AND GET SAMPLE.
--- NOTE | 2020-11-14 17:44 | PC.NURSE ---
PT IS SITTING UP ON THE SOB EATING DINNER AT THIS TIME. NO COMPLAINTS OF DISCOMFORT. O2 SATURATION HAS MAINTAINED 92-95% ON 4 L NC BUT WHEN PT GETS UP TO AMBULATE TO THE BATHROOM O2 SATURATION WILL DROP TO THE 70'S BUT PT DOES NOT APPEAR TO BE IN ANY DISTRESS AND IS STILL ABLE TO HOLD A CONVERSATION W/O DIFFICULTY. LUNG SOUNDS DIMINISHED. ABDOMEN SOFT/NON TENDER WITH ACTIVE BOWEL SOUNDS. EATING AND DRINKING WELL. VSS. WILL CONTINUE TO MONITOR.
[2020-11-14 20:40] LABS: POC Glucose,Bedside 297 (70-110)
--- NOTE | 2020-11-14 22:14 | PC.NURSE ---
increased pt to 5lpm n/c
[2020-11-15] VITALS (10 sets, daily range): BP systolic 139–152; BP diastolic 57–90; PULSE 70–81; RESP 17–20; TEMP 36.5–36.7; O2SAT 91–95; BMI 34.9
--- NOTE | 2020-11-15 05:19 | PC.NURSE ---
pt slept this shift. iv patent. prn medication for anxiety given with relief. o2 was increased to 5LNC by respiratory but was able to be titrated back to 4LNC. o2 sat have been above 90%. vss. call light in reach. will continue to monitor pt condition.
[2020-11-15 06:32] LABS: POC Glucose,Bedside 286 (70-110)
--- NOTE | 2020-11-15 08:34 | HMH.ACPN2 ---
Internal Medicine - PN: Subj *Date: 11/15/20 *Time: 08:34 Interval history: Patient did well overnight, oxygen requirements have declined and she is now on 4 L nasal cannula. Reports shortness of air is about the same, continues to have a mild cough, has been up and down to the restroom. Eating well. Denies leg swelling or abdominal pain. Exam Vital signs and Labs for Last 24 Hours: Temp Pulse Resp BP Pulse Ox 98.0 F 74 17 140/57 L 91 L 11/15/20 07:26 11/15/20 07:26 11/15/20 07:26 11/15/20 07:26 11/15/20 07:26 Laboratory Results - last 24 hr 11/14/20 20:20: POC Glucose 297 H 11/15/20 06:19: POC Glucose 286 H I & O for Last 24 hours: Intake & Output 11/12/20 11/13/20 11/14/20 11/15/20 11:59 11:59 11:59 11:59 Intake Total 480 / 480 960 / 960 Balance 480 / 480 960 / 960 Weight 203 lb 204 lb 4 oz Narrative: Alert, pleasant. Talkative. No JVD. ENT exam otherwise clear. Lungs have rhonchi in both bases, slightly worse on the left this morning. Anterior lung casillas are clear. Heart rate regular without murmurs. Abdomen soft nontender. No distal edema. Wearing compression stockings. Neurologically intact. Assessment and Plan (1) Acute exacerbation of chronic obstructive airways disease Status: Acute Category: Medical Code(s): J44.1 - Chronic obstructive pulmonary disease with (acute) exacerbation (2) Community acquired pneumonia Status: Acute Qualifiers: Category: Medical Code(s): J18.9 - Pneumonia, unspecified organism (3) Generalized anxiety disorder Status: Acute Category: Medical Code(s): F41.1 - Generalized anxiety disorder (4) Diabetes mellitus type 2, noninsulin dependent Status: Chronic Category: Medical Code(s): E11.9 - Type 2 diabetes mellitus without complications (5) Hypertension Status: Chronic Qualifiers: Category: Medical Code(s): I10 - Essential (primary) hypertension (6) Obesity (BMI 30.0-34.9) Status: Chronic Category: Medical Code(s): E66.9 - Obesity, unspecified - Assessment and plan all Dx Assessment and Plan for all problems:: Overall improving. PT/OT evaluation today, restart home medications. Continue monitoring her diabetes. Await sputum culture. If oxygenation continues to improve consider discharge tomorrow.
--- NOTE | 2020-11-15 09:39 | HMH.PTEV ---
Physical Therapy Evaluation Rehab PT IP Evaluation Start: 11/15/20 08:32 Freq: ONCE Status: Active Protocol: Document 11/15/20 09:34 ONELIA (Rec: 11/15/20 09:39 ONELIA [id number]) Subjective/History History History 70-year-old white female with known COPD has been sick for over a week and a half Came to the emergency department, found to have significant oxygen requirement, wheezing, significant tightness on exam and infiltrate in the right lower lung field on chest x- ray. Admitted to hospital for COPD exacerbation and treatment of community- acquired pneumonia. Subjective Subjective Pt reports c/o lightheadedness with sit stand transfer Rehab PT IP Eval Objective Appearance Patient Behavior Appropriate,Cooperative Patient Orientation Person,Place,Time Difficulty following instructions none Speech Pattern Clear,Appropriate Ambulation Patient Able to Ambulate Yes Ambulation Observation IP General Gait Pattern Observation Wide Based Gait,Shuffling Step Ambulation Distance (feet) 30 Ambulation Assistive Device None Ambulation Ability Contact Guard/Hand Hold Balance Ability to Arise Able, uses arms to help Sitting Balance Steady, safe Standing Balance Steady, wide stance Dynamic Sitting Balance Ability Good Dynamic Standing Balance Ability Fair Transfers Bed Transfer Ability Independent Chair Transfer Ability Independent Sit to Stand Bed Transfer Ability Supervision/Stand by Sit to Stand Chair Transfer Ability Supervision/Stand by ROM All Extremities PT ROM Status WFL MMT All Extremities PT MMT WFL Rehab PT IP prob,goals,plan Problems Date of Evaluation: 11/15/20 PT IP Problems Balance,Self care,Safety Other Pt Problem cardio-pulmonary endurance Rehab Potential Rehab Potential Poor Equipment Needs Assistive Devices None / NA Plan PT Intervention Plan Balance,Self care,Safety PT Plan Frequency BID Duration Goals Met Discharge Goals Bed Transfer Ability Independent,Supervision/Stand by Sit to Stand Chair Transfer Ability Independent,Supervision/Stand by
--- NOTE | 2020-11-15 09:48 | HMH.OTEV ---
OT Inpatient Evaluation Rehab OT IP Evaluation Start: 11/15/20 08:32 Freq: ONCE Status: Complete Protocol: Document 11/15/20 09:41 [email or web address] (Rec: 11/15/20 09:48 [email or web address] [id number]) Rehab OT IP Assessment Subjective History 70-year-old white female with known COPD has been sick for over a week and a half, did not come to the office, thought she might get better but has become increasingly short of air, with inability to finish sentences or do activities of daily living, has had increasing brown sputum production. Came to the emergency department, found to have significant oxygen requirement , wheezing, significant tightness on exam and infiltrate in the right lower lung field on chest x-ray. Admitted to hospital for COPD exacerbation and treatment of community-acquired pneumonia. [facility] History I have reviewed the patient's past medical history: Yes Medical History: Reports:: Anxiety, Asthma, Chronic Obstructive Pulmonary Disease (COPD), Deep Vein Thrombosis, Diabetes Mellitus Type 2, Hyperlipidemia, Hypertension, MRSA Patient lives with in 1 story home. Patient verbalize being independent with ADLs and fx'l mobility within the past year. Hx of falling at home. 2L of 02 at home. However Patient is currently on 4L of 02 with SP02 at rest. Nursing aware. Subjective I just feel lightheaded when I walking around. Co-treated with PT for safety. Patient 02 drops easily mid 80's on 4L while resting and exhibit fatigue easily. Co- treat during evaluation
--- NOTE | 2020-11-15 10:34 | SW/DCPLANNER ---
Addendum entered by Edel Valenzuela 11/19/20 07:41: PATIENT DISCHARGED OVER THE WEEKEND AND HOME HEALTH WAS SET UP FOR PATIENT TO BE SEEN FOR HOME HEALTH PT AND RETIREMENT.... Addendum entered by Dana Cota 11/16/20 11:54: The plan is for this patient to discharge home tomorrow 11/17/20. Home Health services will be set up with [facility] once patient discharges. Original Note: I have spoke with this patient regarding plans at time of discharge. Patient stated that she resides at home with her and intends on returning home at time of discharge. Patient stated that she uses [facility] health in the past and prefers to use this agency at discharge. Patient stated that she currently has home O2 and a rolling walker at home. I will set up home health services once patient is medically stable for discharge. Patient could potentially discharge tomorrow.
[2020-11-15 12:24] LABS: POC Glucose,Bedside 270 (70-110)
[2020-11-15 16:34] LABS: POC Glucose,Bedside 317 (70-110)
--- NOTE | 2020-11-15 18:54 | PC.NURSE ---
PT IS RESTING IN BED. NO COMPLAINTS OF PAIN OR SOA. PT RECEIVED ZOFRAN FOR NAUSEA AT THE END OF SHIFT. PT HAS BEEN EATING AND DRINKING WELL BUT WAS NOT ABLE TO EAT ANY SUPPER DUE TO BEING NAUSEATED. PT HAS AMBULATED TO THE BATHROOM. O2 SATURATION HAS MAINTAINED 90-94% ON 4 L NC. PT FEELS LIKE WHEN SHE GOES HOME SHE MIGHT REQUIRE MORE OXYGEN THAN USUAL. NO SWELLING NOTED TO BLE. LUNG SOUNDS DIMINISHED WITH SCATTERED RHONCHI BILATERAL BASES. VSS. REPORT HAND OFF TO JOSE GUADALUPE DILLARD RN.
[2020-11-15 21:08] LABS: POC Glucose,Bedside 171 (70-110)
--- NOTE | 2020-11-15 22:31 | PC.NURSE ---
2228 Dr. Richter called stating that a sputum was needed on this patient, specimen cup taken to patient and pt educated on the need for a sputum, pt verbalized understanding and will ring out when she gets a specimen
[2020-11-16] VITALS (9 sets, daily range): BP systolic 122–155; BP diastolic 58–86; PULSE 69–87; RESP 17–20; TEMP 36.4–36.8; O2SAT 90–97; BMI 34.9
--- NOTE | 2020-11-16 04:45 | PC.NURSE ---
pt is AxOx4, has rested well t/o shift, no complaints of SOA or chest pain, lungs diminished to auscultation, remained on 4L NC t/o most of shift with sats 95-97%, turned to 3L NC at 0330, 0400 O2 sat was 91%, reminded pt again of the need for a sputum sample, pt stated she wasnt coughing up anything, but would notify staff is she was able to produce one
[2020-11-16 06:02] LABS: POC Glucose,Bedside 301 (70-110)
--- NOTE | 2020-11-16 06:26 | HMH.DCSUM ---
General - General Admission date:: 11/13/20 Discharge date: 11/17/20 HPI HPI: 70-year-old white female with known COPD has been sick for over a week and a half, did not come to the office, thought she might get better but has become increasingly short of air, with inability to finish sentences or do activities of daily living, has had increasing brown sputum production. Came to the emergency department, found to have significant oxygen requirement, wheezing, significant tightness on exam and infiltrate in the right lower lung field on chest x-ray. Admitted to hospital for COPD exacerbation and treatment of community-acquired pneumonia. Hospital Course Hospital Course: She had on aggressive pulmonary regimen for COPD exacerbation versus community-acquired pneumonia. Started on antibiotics, steroids, breathing treatments. Showed gradual improvement over the first 24 to 48 hours with stable O2 requirement at baseline per report of home use. Remained afebrile. Tolerating good p.o. intake. Overall patient feeling better and meeting criteria for discharge home. Transition oral antibiotics to complete full course. We will continue steroids as well. Plan for close follow-up in our office to assess continued improvement. Patient denies any chest pain, nausea, vomiting, headache. Still has some mild shortness of breath but drastically improved. Reports she feels overall better. Would benefit from follow-up with pulmonology in the outpatient setting. Objective Vital signs: Temp Pulse Resp BP Pulse Ox 98.2 F 81 18 145/75 H 91 L 11/16/20 04:00 11/16/20 04:00 11/16/20 04:00 11/16/20 04:00 11/16/20 04:00 Narrative: - Constitutional minimal distress, obese, chronically ill appearing - *Routine HEENT Exam Head: Present: normocephalic Eye: Present: EOMI, PERRL ENT: Present: mucous membranes moist - *Routine Neck Exam Present: supple. Absent: lymphadenopathy - *Routine Respiratory Exam Present: stable on 4 L nasal cannula, prolonged expiratory phase, resolution of crackles, no rhonchi or wheeze, diminished air movement - *Routine Cardiovascular Exam Present: RRR - *Routine Abdominal Exam Present: soft, normoactive bowel sounds. Absent: tenderness - *Routine Extremities Exam Present: edema (1+ edema to midshin). Absent: cyanosis, clubbing - *Routine Skin Exam Present: warm. Absent: rash - *Routine Neurological Exam Present: alert, oriented X3 - Routine Psychiatric Exam Present: normal affect. Absent: good insight Results Labs on day of discharge: Labs from last 24 hours 11/16/20 11/15/20 11/15/20 05:29 20:57 16:17 POC Glucose 301 H* 171 H 317 H* 11/15/20 11/15/20 11:40 06:19 POC Glucose 270 H 286 H DS: Diagnosis - Discharge Diagnosis (1) Acute exacerbation of chronic obstructive airways disease Status: Acute (2) Community acquired pneumonia Status: Acute (3) Generalized anxiety disorder Status: Chronic (4) Diabetes mellitus type 2, noninsulin dependent Status: Chronic (5) Hypertension Status: Chronic (6) Obesity (BMI 30.0-34.9) Status: Chronic Discharge Plan - Patient Discharge Instructions ACTIVITY: Continue current activity DIET: continue same diet Patient Instructions: Pneumonia-Adult, Diarrhea, DI for Chronic Obstructive Pulmonary Disease - Follow up Plan Follow up with: Miguel Schultz MD [Primary Care Provider] - (please call for appointment) Disposition: Home, Self-Correction Medications: Home Medications Medication Instructions Recorded Confirmed Type amitriptyline 100 mg tablet 100 mg PO HS 12/24/17 11/13/20 History ammonium lactate 12 % lotion 1 applic TOPICAL BID PRN 12/24/17 11/14/20 History bisoprolol 10 1 tab PO DAILY 12/24/17 11/13/20 History mg-hydrochlorothiazide 6.25 mg tablet doxazosin 4 mg tablet 4 mg PO DAILY 12/24/17 11/13/20 History levothyroxine 88 mcg tablet 88 mcg
[2020-11-16 08:09] LABS: Basophils # 0.1 K/mm3 (0-0.2); Basophils % 0.5 % (0.1-2.0); Eosinophils % 0.1 % (0.1-12.0); Hematocrit 32.2 % (37.0-47.0); Hemoglobin 9.7 g/dL (12.2-16.2); Lymphocytes # 0.5 K/mm3 (0.7-4.5); Lymphocytes % 4.4 % (10-50); Mean Corpuscular HGB Conc 30.3 g/dL (31.8-35.4); Mean Corpuscular Volume 95.9 fl (81-99); Mean Platelet Volume 8.8 fl (7.4-10.4); Monocytes # 0.5 K/mm3 (0.1-1.0); Monocytes % 5.1 % (1.7-9.3); Neutrophils # 9.1 K/mm3 (1.8-7.8); Neutrophils % 89.8 % (37.0-80.0); Platelet Count 298 K/mm3 (142-424); Red Blood Count 3.36 M/mm3 (4.20-5.40); Red Cell Distribution Width 14.2 % (11.5-17.5); White Blood Count 10.1 K/mm3 (4.8-10.8)
[2020-11-16 08:12] LABS: MANUAL DIFFERENTIAL MANUAL DIFFERENTIAL (MANUAL DIFF)
[2020-11-16 08:22] LABS: Chloride 93 mmol/L (98-107); Sodium 137 mmol/L (136-145)
[2020-11-16 08:26] LABS: Blood Urea Nitrogen 30 mg/dl (7-17); Calcium 9.5 mg/dl (8.4-10.2); Creatinine Clearance Estimated 75 mL/min (50-200); Estimated Glomerular Filt Rate 71 ml/min (>60); GFR (African American) 86 ML/MIN (>60); Glucose 330 mg/dl (74-100); Magnesium 2.4 mg/dl (1.6-2.3)
[2020-11-16 08:32] LABS: Carbon Dioxide 37 mmol/L (22.0-30.0)
[2020-11-16 08:41] LABS: Lymphocytes % 4 % (10-50); Monocytes % 2 % (2-9); Neutrophils % 94 % (42-76); Total Cells Counted 100
[2020-11-16 08:42] LABS: Platelet Estimate Normal; RBC Morphology Normal
--- NOTE | 2020-11-16 09:00 | HMH.ACPN2 ---
Internal Medicine - PN: Subj *Date: 11/16/20 *Time: 08:00 Interval history: Patient has been stable on 3 to 4 L nasal cannula oxygen for the past 24 hours becomes a little dyspneic with exertion but able to ambulate back and forth to the bathroom. Cough nonproductive. Denies fever. Tolerating fair p.o. intake. Blood pressure stable. Labs otherwise appear improved this morning, reviewed. Patient very uncomfortable about going home with continued fatigue, dyspnea, and recent loss of a family member who was sent home from the hospital too soon. Complaining of some mild upset stomach, no diarrhea on morning rounds however developed diarrhea through the morning. Exam Vital signs and Labs for Last 24 Hours: Temp Pulse Resp BP Pulse Ox 97.7 F 87 19 155/86 H 93 L 11/16/20 08:00 11/16/20 08:00 11/16/20 08:00 11/16/20 08:00 11/16/20 08:00 Laboratory Results - last 24 hr 11/15/20 11:40: POC Glucose 270 H 11/15/20 16:17: POC Glucose 317 H* 11/15/20 20:57: POC Glucose 171 H 11/16/20 05:29: POC Glucose 301 H* 11/16/20 07:55: WBC 10.1 D, RBC 3.36 L, Hgb 9.7 L, Hct 32.2 L, MCV 95.9, MCH 29.0, MCHC 30.3 L, RDW 14.2, Plt Count 298 D, MPV 8.8, Neut % (Auto) 89.8 H, Lymph % (Auto) 4.4 L, Hand % (Auto) 5.1, Eos % (Auto) 0.1, Baso % (Auto) 0.5, Neut # (Auto) 9.1 H, Lymph # (Auto) 0.5 L, Hand # (Auto) 0.5, Eos # (Auto) 0.0, Baso # (Auto) 0.1, Total Counted 100, Neutrophils % (Manual) 94 H, Lymphocytes % (Manual) 4 L, Monocytes % (Manual) 2, Platelet Estimate Normal, RBC Morphology Normal 11/16/20 07:55: Sodium 137, Potassium 5.0, Chloride 93 L, Carbon Dioxide 37 H, Anion Gap 12.0, BUN 30 H D, Creatinine 0.80, Estimated Creat Clear 75, Estimated GFR 71, Est GFR ( Amer) 86, Glucose 330 H, Calcium 9.5, Magnesium 2.4 H I & O for Last 24 hours: Intake & Output 11/13/20 11/14/20 11/15/20 11/16/20 23:59 23:59 23:59 23:59 Intake Total 960 / 960 840 / 840 480 / 480 Balance 960 / 960 840 / 840 480 / 480 Weight 92.193 kg 92 kg 92.646 kg 92.646 kg - Constitutional mild distress, obese, chronically ill appearing - *Routine HEENT Exam Head: Present: normocephalic Eye: Present: EOMI, PERRL ENT: Present: mucous membranes moist - *Routine Neck Exam Present: supple. Absent: lymphadenopathy - *Routine Respiratory Exam Present: accessory muscle use, prolonged expiratory phase, crackles (Faint left lower lobe), diminished air movement - *Routine Cardiovascular Exam Present: RRR - *Routine Abdominal Exam Present: soft, normoactive bowel sounds. Absent: tenderness - *Routine Extremities Exam Present: edema (1+ edema to midshin). Absent: cyanosis, clubbing - *Routine Skin Exam Present: warm. Absent: rash - *Routine Neurological Exam Present: alert, oriented X3 - Routine Psychiatric Exam Present: normal affect. Absent: good insight Assessment and Plan (1) Acute exacerbation of chronic obstructive airways disease Status: Acute Category: Medical Code(s): J44.1 - Chronic obstructive pulmonary disease with (acute) exacerbation (2) Community acquired pneumonia Status: Acute Qualifiers: Category: Medical Code(s): J18.9 - Pneumonia, unspecified organism (3) Generalized anxiety disorder Status: Acute Category: Medical Code(s): F41.1 - Generalized anxiety disorder (4) Diabetes mellitus type 2, noninsulin dependent Status: Chronic Category: Medical Code(s): E11.9 - Type 2 diabetes mellitus without complications (5) Hypertension Status: Chronic Qualifiers: Category: Medical Code(s): I10 - Essential (primary) hypertension (6) Obesity (BMI 30.0-34.9) Status: Chronic Category: Medical Code(s): E66.9 - Obesity, unspecified - Assessment and plan all Dx Assessment and Plan for all problems:: 70-year-old female with chronic hypoxemic respiratory failure who presented with acute exacerbation. Concern for pneumonia for COPD exacerbation. Has responded well to curr
[2020-11-16 10:52] LABS: POC Glucose,Bedside 226 (70-110)
--- NOTE | 2020-11-16 13:22 | PC.NURSE ---
Sputum induced, pt still unable to make productive cough. Specimen cup left at bedside.
[2020-11-16 16:53] LABS: POC Glucose,Bedside 204 (70-110)
--- NOTE | 2020-11-16 17:00 | DIET.NUTRFU ---
PO intakes 75%, BG moderate-high, avg. 270. No nutritional complaints/concerns. She has been provided diet edu for DM and COPD.
--- NOTE | 2020-11-16 17:21 | PC.NURSE ---
Pt has been pleasant and cooperative this shift. A&O X4. No complaints of pain. Pt complains of SOA with exertion and reports de-saturation to mid 70's with ambulation. (Pt uses her own pulse oximeter for frequent readings.) Pt is receiving O2 via NC @ 4 LPM with sats. >90% at rest. Lung sounds are diminished with scattered wheezing. No edema noted. Skin is C/D/I. Pt uses the toilet to void clear, yellow urine without issue. Pt complained of nausea X1 this AM and received Zofran per OCT. Pt reports favorable results and has had no complaints of nausea since. Pt ambulates to/from the bathroom and throughout the room independently. Frequent loose, brown stools are noted. Pt worked with PT/OT this shift and sat up in the recliner for several hours today. FSBS results have been 226 and 204. Sputum specimen has been rejected per laboratory and pt has been instructed to provide another. Specimen cup placed at bedside. 18 G peripheral IV in the RT forearm is patent and SL. 20 G peripheral IV in the LT upper arm is patent and SL. VSS. Call light within reach. Will continue to monitor.
[2020-11-16 20:58] LABS: POC Glucose,Bedside 138 (70-110)
[2020-11-17] VITALS: BP 156/75; PULSE 77; RESP 16; TEMP 36.6; O2SAT 94
[2020-11-17 04:00] VITALS: BP 142/68; PULSE 78; RESP 18; TEMP 36.6; O2SAT 95
--- NOTE | 2020-11-17 04:19 | PC.NURSE ---
pt is AxOx4, has not had any complaints of SOA or chest pain, has complained of several episodes of diarrhea this shift, abdomen soft and non tender, bowel sounds active, has remained on 4L NC this shift with O2 sats 94-95%, lung sounds diminished on auscultation, pt ambulating in room and to bathroom with SB assist, pt has been reminded about the need for another sputum sample due to the other one being rejected by lab, pt verbalizes understanding but states she is not coughing up anything, specimen cup is at bedside and pt has been instructed to ring out as soon as she is able to produce one
[2020-11-17 05:05] VITALS: BMI 35.2
[2020-11-17 06:28] LABS: POC Glucose,Bedside 250 (70-110)
--- NOTE | 2020-11-17 07:12 | PC.NURSE ---
pt did complain this shift of burning and some bleeding with BMs, patient has some hemorrhoids present, barrier cream given to patient to use after bowel movements at beginning of shift, this morning patient reports that the barrier cream has helped a lot
[2020-11-17 07:48] VITALS: PULSE 89; RESP 18; O2SAT 94
[2020-11-17 08:00] VITALS: BP 157/76; PULSE 89; RESP 18; TEMP 36.8; O2SAT 94
[2020-11-17 12:00] VITALS: BP 162/75; PULSE 80; RESP 17; TEMP 36.5; O2SAT 93
[2020-11-17 12:19] LABS: POC Glucose,Bedside 223 (70-110)
== END 2020-11-17 14:07 | disposition home or self-care (01) | DRG 190 ==
LOC: ER 18:46 → 2ND 19:31
PROVIDERS: Family Medicine; Internal Medicine Adolescent Medicine; Admitting Provider Family Medicine; Emergency Provider Family Medicine; PCP Internal Medicine Adolescent Medicine; Visit Provider Internal Medicine Adolescent Medicine
DX: J44.1 Chronic obstructive pulmonary disease with (acute) exacerbation (principal); J18.9 Pneumonia, unspecified organism; J44.0 Chronic obstructive pulmonary disease with (acute) lower respiratory infection; E11.9 Type 2 diabetes mellitus without complications; I10 Essential (primary) hypertension; F41.1 Generalized anxiety disorder; Z88.0 Allergy status to penicillin; Z88.1 Allergy status to other antibiotic agents; Z88.2 Allergy status to sulfonamides; Z88.5 Allergy status to narcotic agent; Z88.8 Allergy status to other drugs, medicaments and biological substances; Z79.4 Long term (current) use of insulin; Z79.899 Other long term (current) drug therapy; Z79.52 Long term (current) use of systemic steroids; E78.5 Hyperlipidemia, unspecified; Z86.14 Personal history of Methicillin resistant Staphylococcus aureus infection; M79.7 Fibromyalgia; E03.9 Hypothyroidism, unspecified; Z87.891 Personal history of nicotine dependence; E66.9 Obesity, unspecified; Z68.34 Body mass index [BMI] 34.0-34.9, adult
CPT/HCPCS: 36415; 71045; 71275; 80048; 80053; 82962; 83735; 84484; 85007; 85025; 93005; 94760; 94761; 96375; 97110; 97116; 97161; 97165; 97530; 99284; J0456; J1335; J2405; Q9967; U0003

== ENCOUNTER → 2020-12-05 14:47 | Outpatient (CLI) | payer MEDICARE, SELFPAY | PROVIDERS: Visit Provider Nurse Practitioner Family | DX: R30.0 Dysuria (principal) | CPT/HCPCS: 87086 ==

== ENCOUNTER → 2020-12-24 08:40 | Outpatient (CLI) | payer MEDICARE, SELFPAY ==
--- NOTE | 2020-12-24 08:51 | CT_ITS ---
PROCEDURE: CT ABDOMEN PELVIS WO CON CLINICAL INDICATION: PELVIC AND PERINEAL PAIN COMPARISON: CT ABDPELW CT ABD PELVIS W/ CONTRAST from 06/14/2013 TECHNIQUE: Axial images obtained with sagittal and coronal reformats. All CT scans at the facility use one or more dose reduction, viz: automated exposure control, ma/kV adjustment per patient size (including targeted exams where dose is matched to indication, i.e. head), or iterative reconstruction technique. FINDINGS: LOWER THORAX: Mild atelectatic changes in the left lower lobe posterior to the heart. ABDOMEN & PELVIS: Prior cholecystectomy. The liver, spleen, adrenal glands, pancreas, has an unremarkable appearance. Vascular calcifications are present involving the kidney on the right with a questionable nonobstructing 3 mm stone in the mid polar region of the right kidney. There is a left-sided pelvic kidney located deep within the pelvis on the left there is some minimal stranding of the Mayra renal fat on the left. The kidney is located the at and below the level of the left SI joint posteriorly. No obvious renal or ureteral calculus on the left. There is mild thickening of the urinary bladder. No intestinal obstruction or free air. There is a mild amount of retained colonic feces. No evidence of appendicitis. No intestinal obstruction or free air. There is colonic diverticulosis without evidence of diverticulitis. The uterus is canted toward the right. There has been interval repair of the lower abdominal wall hernia with minimal protrusion the abdominal wall at this region in the left paracentral region containing fat. There is a small umbilical hernia containing fat. No acute bony anomalies. There is mild aneurysmal dilatation of the infrarenal abdominal aorta measuring 3 cm. There is a small saccular component protruding to the left at the L2-L3 level. This is not significantly changed. No evidence of acute retroperitoneal hemorrhage. IMPRESSION: 1. Left-sided pelvic kidney. There is some minimal nonspecific stranding of the left mayra renal and periureteral fat as well as mild thickening of the urinary bladder. These findings could be related to urinary tract infection. Small nonobstructing right renal calculus is present. 2. Interval repair of the lower abdominal wall hernia with a small area diastasis of the abdominal wall at this region containing fat. 3. Colonic diverticulosis without diverticulitis. Dictated by: Eliezer Tamayo MD 12/24/2020 09:19 Eliezer Tamayo MD in [place] 12/24/2020 09:19
== END ==
PROVIDERS: PCP Nurse Practitioner Family; Visit Provider Nurse Practitioner Family
DX: R10.2 Pelvic and perineal pain (principal)
CPT/HCPCS: 74176

== ENCOUNTER 2021-01-27 07:02 | Emergency (ER) | payer MEDICARE, SELFPAY ==
--- NOTE | 2021-01-27 07:02 | PC.NURSE ---
Patient arrived via EMS at 0702 with active CPR in process. Patient was witnessed arrest at 0620 by patient per EMS report. CPR initiated at 0625 by EMS. Patient total down time prior to arrival to ED was 42 minutes. Patient received three rounds of epinephrine prior to arrival by EMS. All pulse checks were pulseless, all rhythm check by EMS were asystole. Upon arrival patient had a LMA in place, 20-G right hand in place. Pulse check at 0703 showed asystole. Patient received epinephrine at 0703. CPR continued for another minute and another pulse check and rhythm check showed asystole. Patient glucose 343 upon arrival. Code called at 0704.
--- NOTE | 2021-01-27 07:10 | PC.NURSE ---
Oil Lease Broker called at stated he was on his way
[2021-01-27 07:35] VITALS: BMI 37.4
--- NOTE | 2021-01-27 07:42 | PC.NURSE ---
Called family who states they will be here in about 30 minutes.
--- NOTE | 2021-01-27 07:45 | PC.NURSE ---
Cayetano Myers Government Affairs Fellow gave permission to call [facility] prior to his arrival to the ED
--- NOTE | 2021-01-27 07:58 | PC.NURSE ---
[facility] CONTACT ABDON MEJIA STATED THE PATIENT IS NOT RELEASED AT THIS TIME. ABDON MEJIA STATED TO WAIT FOR FAMILY TO ARRIVE AND FOR HENRIQUE AYALA TO CALL [facility] ONCE FAMILY IS DONE WITH PATIENT. CASE ID NUMBER: [id number]. Family still not here at this time.
--- NOTE | 2021-01-27 08:03 | HMH.EDCPR ---
ED Disposition Clinical Impression: Acute respiratory failure Qualifiers: Respiratory failure complication: unspecified whether with hypoxia or hypercapnia Qualified Code(s): J96.00 - Acute respiratory failure, unspecified whether with hypoxia or hypercapnia Disposition: Condition on Discharge: Referrals: Provider,Referral, [Primary Care Provider] - - Critical Care Critical Care Time: No Attestation: On 01/27/21, the high probability of a clinically significant, sudden or life threatening deterioration of the following system(s) required my full and direct attention, intervention and personal management. The time I documented below is in addition to time spent performing reported procedures but includes the following listed in this critical care notation. [facility] Code Documentation - Arrest Information Outside of Hospital The Code Document Section documentation for [id number] Adeola Swan was populated with data that defaulted in from the costing manager in the Code Assessment on f_Reg Service Date] to provide within this report, the status and treatment of the patient in the ED during a Code. This documentation will be supplemented with my direct findings within the body of the report. Date Treatment Initiated: 01/27/21 Time Treatment Initiated: 06:25 Treatment Initiated By: EMS Location of Arrest: Patient home Arrest Witnessed: Yes (Pt ) Estimated Down Time: 45 minutes - ALS Code Inititation ALS Initiated By: EMS ALS Type: ACLS ALS Initiated Start Time: :25 - Patient Condition At Code Start Condition of Patient at Start of Code: Pulseless Monitoring Devices: ECG Monitor - Circulation Initial Cardiac Rhythm: Asystole - Oxygenation Oxygen Breathing Status: Assisted - Labs Fingerstick Blood Glucose: 343 - Code End Time Code Ended: 07:04 Patient Successfully Resuscitated: No Reason Code Ended: - Efforts Terminated Names of All Individuals Present at Code: Dr. Luna. Ruddy AYALA. Isabelle RN. Ludy AYALA. Pernell RN. Carroll AYALA Medical Decision Making - Medical Records Medical records reviewed: Yes: I reviewed the patient's medical records. - Andrei Inquiry Pt receiving controlled substance: No Vital Signs: 01/27/21 07:06 Oxygen Flow Rate (LPM) 15 Orders (Tests/Meds): ED MEDICATIONS Generic Name Dose Route Start Last Admin Trade Name Freq PRN Reason Stop Dose Admin Sodium Chloride 1,000 mls @ 999 mls/hr 01/27/21 07:03 01/27/21 07:03 Sod Chlor 0.9% 1000ml Bag IV 01/27/21 08:03 999 mls/hr .Q1H1M WINNIE Administration Discontinued Medications Generic Name Dose Route Start Last Admin Trade Name Lisa PRN Reason Stop Dose Admin Epinephrine HCl 1 mg 01/27/21 07:03 01/27/21 07:03 Epinephrine 0.1 Mg/Ml 10ml Syringe (Crash Cart) IV 01/27/21 07:04 1 mg ONCE ONE Administration Medical Decision Narrative: pt with no response and was pronounced at 0704 CPR HPI - General Stated Complaint: CODE Time Seen by Provider: 01/27/21 07:02 Mode of Arrival: EMS Source of Information: EMS, Medical Record Limitations: Altered Mental Status - Related Data Home Medications Medication Instructions Recorded Confirmed amitriptyline 100 mg tablet 100 mg PO HS 12/24/17 11/13/20 ammonium lactate 12 % lotion 1 applic TOPICAL BID PRN 12/24/17 11/14/20 bisoprolol 10 1 tab PO DAILY 12/24/17 11/13/20 mg-hydrochlorothiazide 6.25 mg tablet doxazosin 4 mg tablet 4 mg PO DAILY 12/24/17 11/13/20 levothyroxine 88 mcg tablet 88 mcg PO DAILY 12/24/17 11/13/20 losartan 100 mg tablet 100 mg PO DAILY 12/24/17 11/13/20 metformin 1,000 mg tablet 1,000 mg PO BID 12/24/17 11/13/20 umeclidinium 62.5 mcg/actuation 1 inh INHALATION DAILY 12/24/17 11/14/20 blister powder for inhalation Venlafaxine HCl [Venlafaxine HCl 150 mg PO DAILY 09/16/19 11/14/20 ER] Amlodipine Besylate [Amlodipine 10 mg PO DAILY 11/13/20 11/14/20 10mg Tab] Chol
--- NOTE | 2021-01-27 08:26 | PC.NURSE ---
Patient family arrived at this time. Rush Seater notified.
--- NOTE | 2021-01-27 08:41 | PC.NURSE ---
Attempted to contact [facility] billing customer service representative Joelle Romero without answer. Will attempt to contact Joelle Romero again so she can speak with family.
--- NOTE | 2021-01-27 08:50 | PC.NURSE ---
Human Factors Specialist arrived at this time.
--- NOTE | 2021-01-27 08:50 | PC.NURSE ---
Joelle Romero from [facility] on phone with patient , Dawit at this time
--- NOTE | 2021-01-27 08:53 | PC.NURSE ---
Joelle oneill [facility] released patient to the home. Specialized Language Instructor made aware
--- NOTE | 2021-01-27 08:56 | PC.NURSE ---
Deputy [employer] Jury at bedside with family at this time.
--- NOTE | 2021-01-27 09:11 | PC.NURSE ---
Family still remains at bedside. Family made aware of beverage cart outside of room if they want anuthing to drink.
--- NOTE | 2021-01-27 09:19 | PC.NURSE ---
Patient family left ED at this time
[2021-01-27 10:00] VITALS: BP 00/00; PULSE 0; RESP 0; TEMP -17.7; TEMP 0; O2SAT 0
--- NOTE | 2021-01-27 10:20 | PC.NURSE ---
Dosimetrist leaving at this time with patient body
== END 2021-01-27 10:21 | disposition expired ==
PROVIDERS: Emergency Provider Emergency Medicine
DX: I46.9 Cardiac arrest, cause unspecified (principal); J96.00 Acute respiratory failure, unspecified whether with hypoxia or hypercapnia; F41.9 Anxiety disorder, unspecified; E11.9 Type 2 diabetes mellitus without complications; I10 Essential (primary) hypertension; E78.5 Hyperlipidemia, unspecified; J44.9 Chronic obstructive pulmonary disease, unspecified; M79.7 Fibromyalgia; E03.9 Hypothyroidism, unspecified; Z87.891 Personal history of nicotine dependence
CPT/HCPCS: 96365; 96376; 99282